=== PATIENT | female | born 1975 | race Caucasian/White ===

== ENCOUNTER 2024-01-05 08:39 | Outpatient (OUT) | payer OTHER, SELFPAY ==
--- NOTE | 2024-01-05 08:43 | MM_ITS ---
Patient Name: JANICE PATTEN MR#: [id number] : 1975 Exam Date: 01/05/2024 Ordering Doctor: YOANA YAN . RADIOLOGY REPORT PROCEDURE: MM TOMOSYNTHESIS SCREENING BI COMPARISON: MG MAMM SCREEN 3D STEVENSON CAD, 12/09/2022. MG MAMM SCREEN 3D STEVENSON CAD, 11/05/2021. MG MAMM SCREEN STEVENSON W CAD, 10/08/2020. MG MAMM SCREEN STEVENSON W CAD, 02/15/2018. INDICATIONS: Screening Calculator Name NCI Breast Cancer Risk Assessment Tool 5 Year Breast Cancer Risk 1.20% Lifetime Breast Cancer Risk 12.80% Personal Breast Cancer No Personal Ovarian Cancer No Treatments None Family Cancers None LOCATION: [facility] BREAST COMPOSITION: The breasts are extremely dense, which lowers the sensitivity of mammography. FINDINGS: DIAGNOSTIC CATEGORY 1--NEGATIVE. RIGHT BREAST: No significant suspicious finding. No significant change has occurred. LEFT BREAST: No significant suspicious finding. No significant change has occurred. RECOMMENDATIONS: ROUTINE MAMMOGRAM AND CLINICAL EVALUATION IN 12 MONTHS. PLEASE NOTE: A NORMAL MAMMOGRAM DOES NOT EXCLUDE THE POSSIBILITY OF BREAST CANCER. A CLINICALLY SUSPICIOUS PALPABLE LUMP SHOULD BE BIOPSIED. Dictated by: Cipriano Toro M.D. on 01/07/2024 at 10:11 Approved by: Cipriano Toro M.D. on 01/07/2024 at 10:27
== END 2024-01-05 08:40 | disposition home or self-care (01) ==
LOC: MAMMO 08:39
PROVIDERS: PCP Nurse Practitioner; Visit Provider Nurse Practitioner
DX: Z12.31 Encounter for screening mammogram for malignant neoplasm of breast (principal)
CPT/HCPCS: 77063; 77067

== ENCOUNTER 2025-02-21 09:26 | Outpatient (OUT) | payer OTHER, SELFPAY ==
--- OUTSIDE RECORDS SUMMARY | 2025-02-21 09:28 | XMS_ITS | Encounter Summary ---
Author Organization [facility] Address [address] [place] [address] Care Team Providers Care Rolls Mill Operator Name Role Phone Floresita Martinez CNP Primary Care Provider + [phone] Angélica Taylor CNP Primary Care Provider [phone] Floresita Martinez CNP Unavailable [phone] Encounter Details Date Type Department Care Team (Late st Contact Info) Description 11/03/2021 Abstract [facility] Endocrinology Physicians [address] [facility] [place] [address] Kenneth Sparrow MD [address] [place] [address] Social History Tobacco Use Types Packs/Day Years Used Date Smoking Tobacco: Every Day Smokeless Tobacco: Never Comments Unknown Sex and Gender Information Value Date Recorded Sex Assigned at Not on file Legal Sex Female 3:32 PM EDT Gender Identity Female 11/03/2021 8:42 AM EDT Sexual Orientation Straight 11/03/2021 8: 42 AM EDT COVID-19 Exposure Response Date Recorded In the last 10 days, have yo u been in contact with someone who was confirmed or suspected to have Coronavirus/COVID-19? No / Unsure 11/03/2021 7:27 AM EDT documented as of this encounter Plan of Treatment Upcoming Encounters Date Type Department Care Team (Late st Contact Info) Description 04/18/2025 11:00 AM EDT Office Visit [facility] Endocrinology Physicians [address] [facility] [place] [address] Floresita Martinez CNP [address] [place] [address] documented as of this encounter Visit Diagnoses Not on filedocumented in this encounter Care Teams Rolls Mill Operator Relationship Specialty Start Date End Date Floresita Martinez CNP [address] [place] [address] PCP - General Endocrinology/Metabolism 06/21/24 Angélica Taylor CNP [address] [place] [address] PCP - General Nurse Practitioner 08/09/24 Floresita Martinez CNP [address] [place] [address] Nurse Practitioner Endocrinology/Metabolism 08/09/24 documented as of this encounter
--- OUTSIDE RECORDS SUMMARY | 2025-02-21 09:28 | XMS_ITS | Clinical Summary ---
Author Organization [facility] Address [address] [facility] [facility] [place] [address] Care Team Providers Care Optomechanical Engineer Name Role Phone Unavailable Primary Care Provider Unavailabl e Social History Tobacco Use Types Packs/Day Years Used Date Smoking Tobacco: Never Assessed Comments Unknown Sex and Gender Information Value Date Recorded Sex Assigned at Not on file Legal Sex Female 8:21 PM EDT Gender Identity Not on file Sexual Orientation Not on file Last Filed Vital Signs Vital Sign Reading Time Taken Comments Blood Pressure 121/70 12/09/2022 12:00 PM EDT Pulse - - Temperature - - Respiratory Rate - - Oxygen Saturation - - Inhaled Oxygen Concentration - - Weight 54.4 kg (120 lb) 12/09/2022 12:00 PM EDT Height 157.5 cm (5' 2 ) 12/09/2022 12:00 PM EDT Body Mass Index 21.95 12/09/2022 12:00 PM EDT Plan of Treatment Not on file
--- OUTSIDE RECORDS SUMMARY | 2025-02-21 09:28 | XMS_ITS | Clinical Summary ---
Author Organization [facility] Address [address] [place], [place] [id number] Care Team Providers Care Drum Operator Name Role Phone Angélica Taylor REHAB LIAISON Primary Care Provider [phone] Floresita Martinez REHAB LIAISON Unavailable [phone] Allergies Active Allergy Reactions Criticality Noted Date Comments Sulfamethoxazole-Trimethoprim Unknown 2021 Cephalexin Unknown 12/18/2015 Epinephrine Palpitations Low 11/03/2021 Penicillins Unknown 12/18/2015 Sulfa (Sulfonamide Antibiotics) Rash Low 10/2021 Sertraline Headache 11/03/2021 Medications blood sugar diagnostic (glucose blood) strips Use to check blood sugar 2 times daily and as needed for low blood sugar. ICD10 code: E10.65 . 100 each 4 Active lancets Misc Use to check blood sugar 2 times daily and as needed for low blood sugar. ICD10 code: E10.65 . 100 each 4 Active pen needle, diabetic 31 gauge x 12/15 NdleIndications:T ype 1 diabetes mellitus without complication (HCC) Use to inject insulin 4 times daily as instructed. . 200 each 4 Active alcohol swabs PadMIndications:T ype 1 diabetes mellitus without complication (HCC) Use to check blood sugar up to 4 times daily and as needed for low blood sugar. ICD10 code: E10.9 . 100 each 4 Active insulin glargine (Lantus Solostar U-100 Insulin) 100 unit/mL (3 mL) InPn Inject 9 units under the skin daily. . 15 mL 3 4 Active Additional Information Patient taking differently: As needed, Inject 9 units under the skin, Reported on 01/10/2025 glucagon 1 mg/0.2 mL AtIn Inject 0.2 mL (1 mg total) under the skin as needed (For severe hypoglycemia) . 0.4 mL 3 4 Active insulin emergency services director cart,aut,G6/7,cnt r (Omnipod 5 G6-G7 Intro Kt,Gen5,) Crtg Inject 1 each under the skin every 3 (three) days . 1 each 4 Active blood-glucose sensor (Dexcom G7 Sensor) DeviIndications:T ype 1 diabetes mellitus with hyperglycemia (HCC) Use as directed every 10 days . 3 each 11 4 Active rosuvastatin (CRESTOR) 5 MG tabletIndications :Dyslipidemia Take 1 (one) tablet (5 mg total) by mouth daily . 90 tablet 3 4 025 Active insulin lispro (AdmeLOG,HumaLOG) 100 unit/mL injection As directed via insulin pump up to 40 units daily . 40 mL 3 5 Active insulin pump cart,auto,BT,G6/7 (Omnipod 5 G6-G7 Pods, Gen 5,) Crtg Inject 1 each under the skin every 3 (three) days . 30 each 3 5 Active Active Problems Problem Noted Date Diagnosed Date Type 1 diabetes mellitus without complication Encounters Date Type Department Care Team Description 01/10/2025 11:00 AM EDT Office Visit [facility] Endocrinology Physicians [address] [place] [address] [place] [address] Floresita Martinez, TAN Type 1 diabetes mellitus with hyperglycemia (HCC) (Primary Dx); Dyslipidemia 01/08/2025 Travel from Last 3 Months Family History Medical History Relation Comments Diabetes Brother Type 2 Heart disease Maternal Aunt Diabetes Maternal Grandfather Diabetes Maternal Grandmother Diabetes Maternal Uncle Heart disease Mother Thyroid disease Mother Relation Status Comments Brother Maternal Aunt Maternal Grandfather Maternal Grandmother Maternal Uncle Mother Social History Tobacco Use Types Packs/Day Years Used Date Smoking Tobacco: Every Day Cigarettes 0.5 20 Smokeless Tobacco: Never Tobacco Cessation:Ready to Q uit: Not Asked; Counseling Given: Not Answered Alcohol Use Standard Drinks/Week Comments Yes 0 (1 standard drink = 0.6 oz pur e alcohol) occasionally [facility] Utilities Answer Date Recorded In the past 12 months has e electric, gas, oil, or water company threatened to shut off services in your home? No 05/17/2024 Humiliation, Afraid, Rape, and Kick questionnair e Answer Date Recorded Within the last year, have y ou been afraid of your partner or ex-partner? No 05/17/2024 Within the last year, have y ou been humiliated or emotionally abused in other ways by your partner or ex-partner? No Within the last year, have y ou been kicked, hit, slapped, or otherwise physically hurt by your partner or ex-partner? No 05/17/2024 Within the last year, have y ou been raped or forced to have any kind of sexual activity by your partner or ex-partner? No 05/17/2024 Social Connection and Isolat ion Panel [NHANES] Answer Date Recorded In a typical week, how many times do you talk on the phone with family, friends, or neighbors? More than three times a week 05/17/2024 How often do you get togethe r with friends or relatives? Once a week 05/17/2024 How often do you attend [facility] or jewish services? Never 05/17/2024 Do you belong to any clubs o r organizations such as episcopal groups, unions, fraternal or athletic groups, or school groups? No 05/17/2024 How often do you attend meet ings of the clubs or organizations you belong to? Never 05/17/2024 Are you , , di vorced, , never , or living with a partner? 05/17/2024 AUDIT-C Answer Date Recorded Q1: How often do you have a drink containing alc ohol? Monthly or less 05/17/2024 Q2: How many drinks containi ng alcohol do you have on a typical day when you are drinking? 3 or 4 05/17/2024 Q3: How often do you have si x or more drinks on one occasion? Never 05/17/2024 Overall Financial Resource Strain (CARDIA) Answe r Date Recorded How hard is it for you to pa y for the very basics like food, housing, medical care, and heating? Somewhat hard 05/17/2024 PHQ-2 Answer Date Recorded Patient Health Questionnaire-2 Score 0 05/17/2024 [facility] of Occupat ional [facility] - Occupational Stress Questionnaire Answer Date Recorded Do you feel stress - tense, restless, nervous, or anxious, or unable to sleep at night because your mind is troubled all the time - these days? To some extent 05/17/2024 Exercise Vital Sign Answer Date Recorde d On average, how many days pe r week do you engage in moderate to strenuous exercise (like a brisk walk)? 0 days 05/17/2024 On average, how many minutes do you engage in exercise at this level? 0 min 05/17/2024 Hunger Vital Sign Answer Date Recorded Within the past 12 months, y ou worried that your food would run out before you got the money to buy more. Never true 05/17/20 24 Within the past 12 months, t he food you bought just didn't last and you didn't have money to get more. Never true 05/17/2024 PRAPARE - Transportation Answer Date Re corded In the past 12 months, has l ack of transportation kept you from medical appointments or from getting medications? No 05/02 In the past 12 months, has l ack of transportation kept you from meetings, work, or from getting things needed for daily living? No 05/17/2024 Housing Stability Vital Sign Answer Luis Armando e Recorded In the last 12 months, was t here a time when you were not able to pay the mortgage or rent on time? No 05/17/2024 In the past 12 months, how m any times have you moved where you were living? 1 05/17/2024 At any time in the past 12 m [facility], were you homeless or living in a [place] (including now)? No 05/17/2024 Education Answer Date Recorded What is the highest level of school you have completed or the highest degree you have received? High school graduate 05/17/2024 Comments Unknown Sex and Gender Information Value Date Recorded Sex Assigned at Not on file Legal Sex Female 3:32 PM EDT Gender Identity Female 11/03/2021 8:42 AM EDT Sexual Orientation Straight 11/03/2021 8: 42 AM EDT Last Filed Vital Signs Vital Sign Reading Time Taken Comments Blood Pressure 117/75 01/10/2025 11:00 AM EDT Pulse 77 01/10/2025 11:00 AM EDT Temperature - - Respiratory Rate 16 06/28/2024 9:49 AM EST Oxygen Saturation 98% 01/26/2024 10:43 AM EDT Inhaled Oxygen Concentration - - Weight 55.5 kg (122 lb 6.4 oz) 01/10/2025 11:00 AM EDT Height 157.5 cm (5' 2 ) 06/21/2024 3:16 PM EST Body Mass Index 22.39 06/21/2024 3:16 PM EST Plan of Treatment Upcoming Encounters Date Type Department Care Team (Late st Contact Info) Description 04/18/2025 11:00 AM EDT Office Visit [facility] Endocrinology Physicians [address] [facility] [place] [id number] Floresita Martinez, REHAB LIAISON [address] [place] [address] Health Maintenance Due Date Last Done Comments CT Colonography 1975 Colonoscopy 1975 Colorectal Cancer Screening/Monitoring 1975 Fecal DNA 1975 Fecal occult blood test (FOBT,FIT) 1975 Flexible sigmoidoscopy 1975 Tetanus: Every 10yrs 1977 Depression Screening/Follow- Up (PHQ-2/9) 1989 HIV Screening 1992 Hepatitis C Screening 1995 Pneumococcal Vaccine: Ped or At-Risk (1 of 2 - PCV) 1996 HPV/Cotest 2007 Mammogram 12/10/2023 12/09/2022, 12/09/2022 Wellness Visit 12/10/2023 12/09/2022 COVID-19 Vaccine (1 - 2023-2 5 season) 2024 A1C 03/29/2025 12/27/2024, 01/0 10/2024, 04/19/2024, Additional history exists Influenza Vaccine (#1) 2025 Diabetic Foot Exam 10/04/2025 10/04/2024, 11/01/2023 Diabetic Eye Exam 12/06/2025 12/06/2024, , 10/05/2022 Cervical Cancer Screening 12/09/2025 Pap Smear 12/09/2025 12/09/2022 Urine (micro)albumin/creatin ine ratio - Diabetes 12/27/2025 12/27/2024, 01/12/2024, 12/16/2022, Additional history exists eGFR Diabetes 12/27/2025 12/27/2024, 01/12/2024, 12/16/2022 Goals Goal Patient Goal Type Associated Problems Recent Progress Patient-Stated? Author DSME Program Goal: I will work on getting 30 min 3 days of physical activity and work up to 5 days a week. Being Active On track( 12:16 PM EST) Yes Floresita Salas RN DSME Program Goal: I will use family and friends to help me manage my diabetes Healthy Coping On track( 12:16 PM EST) Yes Floresita Salas RN DSME Program Goal: I will start reading nutrition labels Healthy Eating On track( 12:16 PM EST) Yes Katharina Chino RD DSME Program Goal: I will follow the plate method to plan balanced meals Healthy Eating On track( 12:16 PM EST) Yes Katharina Chino RD DSME Program Goal: i will continue to check my blood sugars at least four times a day. Monitoring On track( 12:16 PM EST) Yes Floresita Salas RN Procedures Procedure Name Priority Date/Time Associated Diagnosis Comments PA PEER COUNSELOR (MONITOR); EXTERNAL, FOR USE WITH NONDURABLE MEDICAL EQUIPMENT INTERSTITIAL CONTINUOUS GLUCOSE MONITORING SYSTEM (CGM) Routine 01/09/2025 1:14 PM EDT MICROALBUMIN, URINE, RANDOM Routine 12/27/2024 7:29 AM EDT Type 1 diabetes mellitus with hyperglycemia (HCC) HEMOGLOBIN A1C Routine 12/27/2024 7:23 AM EDT Type 1 diabetes mellitus with hyperglycemia (HCC) TSH WITH REFLEX FREE T4 Routine 12/27/2024 7:23 AM EDT Type 1 diabetes mellitus with hyperglycemia (HCC) CHEM 7 Routine 12/27/2024 7:23 AM EDT Type 1 diabetes mellitus with hyperglycemia (HCC) LIPID PANEL Routine 12/27/2024 7:23 AM EDT Type 1 diabetes mellitus with hyperglycemia (HCC) Dyslipidemia HM DIABETES EYE EXAM Routine 12/06/2024 3:21 PM EDT from Last 3 Months Results * PA PEER COUNSELOR (MONITOR); EXTERNAL, FOR USE WITH NONDURABLE MEDICAL EQUIPMENT INTERSTITIAL CONTINUOUS GLUCOSE MONITORING SYSTEM (CGM) (01/09/2025 1:14 PM EDT) Floresita Martinez CNP PA MISCELLANEOUS SERVICES Final Result * Microalbumin/Creatinine Ratio, UR Random (12/27/2024 7:29 AM EDT) Creatinine, Urine Random ([facility]) 101 20 - 275 mg/dL [facility] Microalb, Urine Random ([facility]) 1.3 See Note: mg/dL [facility] Comment: Reference Range: Reference Range Not established Microalbumin/Creat inine Ratio ([facility]) 13 <30 mg/g creat [facility] Comment: The ADA defines abnormalities in albumin excretion as follows: Albuminuria Category Result (mg/g creatinine) Normal to Mildly increased <30 Moderately increased 30-299 Severely increased > OR = 300 The ADA recommends that at least two of three specimens collected within a 3-6 month period be abnormal before considering a patient to be within a diagnostic category. Urine URINE SPECIMEN / Unknown 12/27/2024 7:29 AM EDT 12/27/2024 7:30 AM EDT Narrative [facility] - 12/28/2024 4:17 PM EDT FASTING:YES FASTING: YES Floresita Martinez CNP URINE ORDERABLES Final Res ult [facility] [address] [place] [address], * (ABNORMAL) Chem 7 (12/27/2024 7:23 AM EDT) Glucose ([facility]) 134(H) 65 - 99 mg/dL [facility] Comment: Fasting reference interval For someone without known diabetes, a glucose value >125 mg/dL indicates that they may have diabetes and this should be confirmed with a follow-up test. BUN ([facility]) 24 7 - 25 mg/dL [facility] Creatinine ([facility]) 0.77 0.50 - 0.99 mg/dL [facility] eGFR ([facility]) 96 > OR = 60 mL/min/1. 73m2 [facility] Bun/Creatinine Ratio ([facility]) SEE NOTE: 6 - 22 (calc) [facility] Comment: Not Reported: BUN and Creatinine are within reference range. Sodium ([facility]) 141 135 - 146 mmol/L [facility] Potassium ([facility]) 4.4 3.5 - 5.3 mmol/L [facility] Chloride ([facility]) 107 98 - 110 mmol/L [facility] CO2 ([facility]) 27 20 - 32 mmol/L [facility] Blood BLOOD SPECIMEN / Unknown 12/27/2024 7:23 AM EDT 12/27/2024 7:24 AM EDT Narrative [facility] - 12/27/2024 11:18 PM EDT FASTING:YES FASTING: YES Floresita Martinez [facility] BLOOD ORDERABLES Final Result [facility] [address] [place] [address], * TSH with Reflex Free T4 (12/27/2024 7:23 AM EDT) TSH ([facility]) 1.14 mIU/L [facility] Comment: Reference Range > or = 20 Years 0.40-4.50 Ranges First trimester 0.26-2.66 Second trimester 0.55-2.73 Third trimester 0.43-2.91 Blood BLOOD SPECIMEN / Unknown 12/27/2024 7:23 AM EDT 12/27/2024 7:24 AM EDT Narrative [facility] - 12/28/2024 12:26 AM EDT FASTING:YES FASTING: YES Floresita Martinez [facility] LAB BLOOD ORDERABLES Final Result Performing Organization Address [facility]/ZIP Co de Phone Number [facility] [address] [address], * (ABNORMAL) Hemoglobin A1c (12/27/2024 7:23 AM EDT) Hemoglobin A1C ([facility]) 7.9(H) <5.7 % [facility] Comment: For someone without known diabetes, a hemoglobin A1c value of 6.5% or greater indicates that they may have diabetes and this should be confirmed with a follow-up test. For someone with known diabetes, a value <7% indicates that their diabetes is well controlled and a value greater than or equal to 7% indicates suboptimal control. A1c targets should be individualized based on duration of diabetes, age, comorbid conditions, and other considerations. Currently, no consensus exists regarding use of hemoglobin A1c for diagnosis of diabetes for children. Blood BLOOD SPECIMEN / Unknown 12/27/2024 7:23 AM EDT 12/27/2024 7:24 AM EDT Narrative [facility] - 12/28/2024 2:12 AM EDT FASTING:YES FASTING: YES Floresita Martinez [facility] BLOOD ORDERABLES Final Result Performing Organization Address City/[facility]/ZIP Co de Phone Number [facility] [address] [address], * Lipid Panel (12/27/2024 7:23 AM EDT) Cholesterol ([facility]) 159 <200 mg/dL [facility] HDL ([facility]) 66 > OR = 50 mg/dL [facility] Triglycerides ([facility]) 73 <150 mg/dL [facility] LDL Cholesterol ([facility]) 78 mg/dL (calc) [facility] Comment: Reference range: <100 Desirable range <100 mg/dL for primary prevention; <70 mg/dL for patients with CHD or diabetic patients with > or = 2 CHD risk factors. LDL-C is now calculated using the Juan calculation, which is a validated novel method providing better accuracy than the Friedewald equation in the estimation of LDL-C. Rolando SS et al. PEGGY. 2013;310(19): 3001-8222 (http://education.Mercury Puzzle/faq/VQP333) Chol/HDL Ratio ([facility]) 2.4 <5.0 (calc) [facility] Non HDL Cholesterol ([facility]) 93 <130 mg/dL (calc) [facility] Comment: For patients with diabetes plus 1 major ASCVD risk factor, treating to a non-HDL-C goal of <100 mg/dL (LDL-C of <70 mg/dL) is considered a therapeutic option. Blood BLOOD SPECIMEN / Unknown 12/27/2024 7:23 AM EDT 12/27/2024 7:24 AM EDT Narrative [facility] - 12/27/2024 11:18 PM EDT FASTING:YES FASTING: YES Floresita Martinez [facility] BLOOD ORDERABLES Final Result [facility] [address] [place] [address], [place] * DIABETES EYE EXAM (12/06/2024 3:21 PM EDT) Kenneth Sparrow MD HEALTH MAINTENANCE Final Result from Last 3 Months Insurance PPO Care Teams Drum Operator Relationship Specialty Start Date End Date Angélica Taylor CNP [address] [place] [address] PCP - General Nurse Practitioner 08/09/24 Floresita Martinez CNP [address] [place] [address] Nurse Practitioner Endocrinology/Metabolism 08/09/24
--- OUTSIDE RECORDS SUMMARY | 2025-02-21 09:28 | XMS_ITS | Patient Health Record ---
Author Organization [facility] Address [address] [place] [address] Care Team Providers Care Station Inspector Name Role Phone Dr. Deni Monroe Primary Care Provider Allergies Allergen (clinical drug ingredient) Drug/Non Drug Allergy documented on EMR Reaction Allergy Type Onset Date Status EPINEPHrine Unknown Drug Allergy Activ e Reason For Referral No Information Plan Of Treatment No Information Insurance Providers Payer Name Payer Address Payer Phone Subscriber Number Group Number Insured Name Patient Relationship to Insured Coverage Start Date Coverage End Date z[employer]-termed [address] [place] [address] [id number] JANICE PATTEN Self - patient is the insured 2 zMEDICAID [employer] after [employer] [address] [place] [address] [id number] JANICE PATTEN Self - patient is the insured 2 zDENTAL [employer] E-termed 22 [address] [place] [address] [id number] JANICE PATTEN Self - patient is the insured 2 zDental MEDICAID [employer] after [employer] E-[employer] 22 [address] [place] [address] [id number] JANICE PATTEN Self - patient is the insured 2
--- OUTSIDE RECORDS SUMMARY | 2025-02-21 09:28 | XMS_ITS | Encounter Summary ---
Author Organization [facility] Address [facility] [place] [address] Care Team Providers Care Carrier Driver Name Role Phone Floresita Martinez CNP Primary Care Provider + [phone] Angélica Taylor CNP Primary Care Provider [phone] Floresita Martinez CNP Unavailable [phone] Encounter Details Date Type Department Care Team (Late st Contact Info) Description 11/19/2021 [facility] Only [facility] [address] [place] [phone] Denita Rodriguez MD [address] [facility] [address] [place] [id number] Social History Tobacco Use Types Packs/Day Years [...] Description 04/18/2025 11:00 AM EDT Office Visit [facility] [address] [facility] [place] [phone] Floresita Martinez CNP [address] [facility] [place] [address] documented as of this encounter Visit Diagnoses Not on filedocumented in this encounter Care Teams Carrier Driver Relationship Specialty Start Date End Date Floresita Martinez CNP [address] [place] [address] PCP - General Endocrinology/Metabolism 06/21/24 Angélica Taylor CNP [address] [place] [id number] PCP - General Nurse Practitioner 08/09/24 Floresita Martinez CNP [address] [place] [address] Nurse Practitioner Endocrinology/Metabolism 08/09/24 documented as of this encounter
--- NOTE | 2025-02-21 09:31 | MM_ITS ---
Patient Name: JANICE PATTEN MR#: [id number] : 1975 Exam Date: 02/21/2025 Ordering Doctor: YOANA YAN . RADIOLOGY REPORT PROCEDURE: MM TOMOSYNTHESIS SCREENING BI COMPARISON: MM TOMOSYNTHESIS SCREENING BI, 01/05/2024. MG MAMM SCREEN 3D [facility] CAD, 12/09/2022. MG MAMM SCREEN 3D [facility] CAD, 11/05/2021. MG MAMM SCREEN STEVENSON W CAD, 02/15/2018. INDICATIONS: Screening Calculator Name NCI Breast Cancer Risk Assessment Tool 5 Year Breast Cancer Risk 1.20% Lifetime Breast Cancer Risk 12.70% Personal Breast Cancer No Personal Ovarian Cancer No Treatments None Family Cancers None LOCATION: [facility] BREAST COMPOSITION: The breasts are extremely dense, which lowers the sensitivity of mammography. FINDINGS: DIAGNOSTIC CATEGORY 1--NEGATIVE. RIGHT BREAST: No significant suspicious finding. LEFT BREAST: No significant suspicious finding. RECOMMENDATIONS: ROUTINE MAMMOGRAM AND CLINICAL EVALUATION IN 12 MONTHS. PLEASE NOTE: A NORMAL MAMMOGRAM DOES NOT EXCLUDE THE POSSIBILITY OF BREAST CANCER. A CLINICALLY SUSPICIOUS PALPABLE LUMP SHOULD BE BIOPSIED. Dictated by: Uriah Cannon MD on 02/21/2025 at 13:13 Approved by: Uriah Cannon MD on 02/21/2025 at 13:15
--- OUTSIDE RECORDS SUMMARY | 2025-02-21 09:49 | XMS_ITS | CCD ---
Author Organization [facility] Care Team Providers Care Certified Breastfeeding Educator Name Role Phone Shaan Coffman Primary Care Provider Shaan OLIVARES Primary Care Physician Olivares Shaan CORDERO Primary Care Provider [phone] Olivares GIL, Shaan Primary Care Provider SHAAN OLIVARES Referring Unavailable OLIVARES, SHAAN A Primary Care Unavailable OLIVARES, SHAAN A Referring Unavailable OLIVARES, SHAAN A Primary Care Unavailable OLIVARES, SHAAN A Referring Unavailable OLIVARES, SHAAN A Primary Care Unavailable OLIVARES, SHAAN A Primary Care Unavailable OLIVARES, SHAAN A Referring Unavailable OLIVARES, SHAAN A Referring Unavailable OLIVARES, SHAAN A Primary Care Unavailable OLIVARES, SHAAN A Primary Care Unavailable OLIVARES, SHAAN A Referring Unavailable Olivares Shaan CORDERO Primary Care Provider [phone] MAGAL[address] ., DR GODOY Primary Care Unavailabl e KARASIK ., DR GODOY Consulting Unavailabl e KARASIK ., DR GODOY Attending Unavailabl e KARASIK ., DR GODOY Admitting Unavailabl e KARASIK ., DR GODOY Admitting Unavailabl e KARASIK ., DR GODOY Primary Care Unavailabl e KARASIK ., DR GODOY Consulting Unavailabl e KARASIK ., DR GODOY Attending Unavailabl e WEST, DR MATTHEW Sheppard Consulting Unavailable Olivares Shaan CORDERO Primary Care Provider Yoana Taylor Primary Care Physician Yoana Taylor Attending Unavailable YuriyYoana soto Admitting Unavailable YuriyYoana soto Attending Unavailable YuriyYoana soto Attending Unavailable OLIVARES, SHAAN Primary Care Unavailable MARLENY SPARROWIN TERRANCE NATARAJAN Admitting Unava ilable OLIVARESSHAAN Primary Care Unavailable ADLY, KENNETH ADLY KENNETH Referring Unava ilable ADLY, KENNETH ADLY KENNETH Admitting Unava ilable SHAAN OLIVARES Primary Care Unavailable ADLY, KENNETH ADLY KENNETH Referring Unava ilable ADLY, KENNETH ADLY KENNETH Admitting Unava ilable Yuriy, INTERLACER Yoana L Attending Unavailable Yuriy, INTERLACER Yoana L Admitting Unavailable Yuriy, INTERLACER Yoana L Attending Unavailable Yuriy, INTERLACER Yoana L Attending Unavailable Unavailable Primary Care Provider Unavailabl e Floresita Bob CNP Primary Care Provider FLORESITA BOB Primary Care Unavailable FLORESITA BOB Referring Unavailable FLORESITA BOB Admitting Unavailable FLORESITA SALAS Attending Unavailable FLORESITA BOB Primary Care Unavailable PAPO [place]ILLS Attending Unavailable FLORESITA BOB Referring Unavailable FLORESITA BOB Admitting Unavailable SHAAN OLIVARES [facility] Care Unavailable FLORESITA BOB Referring Unavailable FLORESITA BOB Admitting Unavailable FLORESITA SALAS Attending Unavailable [place] Attending Unavailable FLORESITA BOB Primary Care Unavailable FLORESITA BOB Referring Unavailable FLORESITA BOB Admitting Unavailable SHAAN OLIVARES [facility] Care Unavailable ADLY, KENNETH ADLY KENNETH Attending Unava ilable ADLY, KENNETH ADLY KENNETH Referring Unava ilable Yuriy Yoana MADDOX Primary Care Provider Floresita Bob CNP Unavailable [phone] Brenna Love Attending Unavailable ADLY, KENNETH ADLY KENNETH Attending Unava ilable YURIYYOANA SOTO Primary Care Unavailable ADLY, KENNETH ADLY KENNETH Attending Unava ilable FLORESITA BOB Primary Care Unavailable FLORESITA BOB Attending Unavailable YURIYYOANA SOTO Primary Care Unavailable FLORESITA BOB Attending Unavailable YURIYYOANA SOTO Primary Care Unavailable FLORESITA BOB Attending Unavailable YURIYYOANA SOTO Primary Care Unavailable FLORESITA BOB Attending Unavailable SHAAN OLIVARES Primary Care Unavailable ADLY, KENNETH ADLY KENNETH Attending Unava ilable SHAAN OLIVARES Primary Care Unavailable FLORESITA BOB Attending Unavailable YURIY, YOANA RINA Primary Care Unavailable Allergies Allergy Classification Reported Allergen(s) Allergy Type Date of Onset Reaction(s) Facility Adrenergic Agonists (2 sources) EPINEPHrine; Translations: [epinephrine] Drug Allergy 11-04-19 Palpitations [facility] Cephalosporins (antibiotic) (1 source) Cephalexin Drug Allergy 12-18-19 16 Unknown [facility] Penicillins (antibiotic) (2 sources) Penicillins; Translations: [penicillins] Drug Allergy 12-18-19 16 Unknown [facility] Serotonin Reuptake Inhibitors (SSRIs) (2 sources) Sertraline; Translations: [sertraline] Drug Allergy 11-04-19 Headache (finding), Headache [facility] Sulfamethoxazole / Trimethoprim (2 sources) Sulfamethoxazole / Trimethoprim; Translations: [sulfamethoxazole-t rimethoprim] Drug Allergy 11-04-19 Muscle pain (finding), Unknown [facility] Sulfonamides (antibiotic) (2 sources) Sulfonamides (Antibiotic); Translations: [sulfa drugs] Drug Allergy 11-04-19 Rash [facility] (20 sources) EPINEPHrine; Translations: [epinephrine] Drug Allergy 11-04-19 Palpitations [facility] (15 sources) Penicillins; Translations: [penicillins] Propensity to adverse reactions to drug 12-18-19 16 Unknown [facility] (20 sources) Sertraline; Translations: [sertraline] Drug Allergy 11-04-19 Headache, Headache (finding) [facility] (20 sources) Sulfamethoxazole / Trimethoprim; Translations: [sulfamethoxazole-t rimethoprim] Drug Allergy 11-04-19 Unknown, Muscle pain (finding) [facility] (20 sources) Sulfonamides (Antibiotic); Translations: [SULFA (SULFONAMIDE ANTIBIOTICS)] Propensity to adverse reactions to drug 11-04-19 Rash [facility] (5 sources) Sulfonamides (Antibiotic); Translations: [sulfa drugs] Drug allergy rash [facility] Ralph Work Phone: (20 sources) Penicillins Propensity to adverse reactions to drug 12-18-19 16 Unknown [facility] (1 source) Cephalexin Drug Allergy 05-18-20 16 [facility] (1 source) EPINEPHrine Drug Allergy 12-18-19 16 [facility] (1 source) Penicillins Drug allergy (disorder) 12-18-19 16 [facility] (1 source) Sulfonamides (Antibiotic) Drug allergy (disorder) 12-18-19 16 [facility] (20 sources) Cephalexin; Translations: [CEPHALEXIN] Drug Allergy 12-18-19 16 Unknown [facility] (3 sources) Sertraline; Translations: [Zoloft] Drug Allergy [facility] (3 sources) Sulfamethoxazole / Trimethoprim; Translations: [Bactrim] Drug Allergy [facility] (1 source) Penicillins Propensity to adverse reactions to drug 12-18-19 16 Unknown [facility] Medications Current Medications Medication Drug Class(es) Dates Sig (Normalized) Sig (Original) blood-glucose meter,continuous (Dexcom G6 Air Twist Operator) Misc (6 sources) Start: 12-22-2021 blood-glucose meter,continuous (Dexcom G6 Air Twist Operator) Misc Use as instructed to check blood sugar. . 1 each 0 12/22/2021 Active Start: 12-10-2021 blood-glucose meter,continuous (Dexcom G6 Air Twist Operator) Misc To check blood sugar as instructed. . 1 each 0 12/10/2021 Active blood-glucose sensor (Dexcom G7 Sensor) Nabila (12 sources) Start: 07-21-2024 blood-glucose sensor (Dexcom G7 Sensor) Nabila Indications: Type 1 diabetes mellitus with hyperglycemia (HCC) Use as directed every 10 days . 3 each 07/21/2024 Active Start: 06-16-2024 End: 06-20-2024 blood-glucose sensor (Dexcom G7 Sensor) Nabila Indications: Type 1 diabetes mellitus with hyperglycemia (HCC) Check bg prior to meals and bedtime. Change sensor every 10 days. . 3 each 06/16/2024 06/20/2024 Discontinued Start: 06-16-2024 blood-glucose sensor (Dexcom G7 Sensor) Nabila Indications: Type 1 diabetes mellitus with hyperglycemia (HCC) Check bg prior to meals and bedtime. Change sensor every 10 days. . 3 each 06/16/2024 Active Start: 06-14-2024 End: 06-16-2024 blood-glucose sensor (Dexcom G7 Sensor) Nabila Indications: Type 1 diabetes mellitus with hyperglycemia (HCC) Check bg prior to meals and bedtime . 3 each 06/14/2024 06/16/2024 Discontinued (Reorder (Suppress CancelRx Message to Pharmacy)) blood-glucose sensor (FreeStyle Alexander 3 Sensor) Nabila (4 sources) Start: 01-26-2024 blood-glucose sensor (FreeStyle Alexander 3 Sensor) Nabila Indications: Type 1 diabetes mellitus with hyperglycemia (HCC) Change every 14 days to check blood sugar as instructed. . 2 each 01/26/2024 Active 0.2 ml glucagon 5 mg/ml auto-injector (14 sources) Antihypoglycemic Agent Start: 05-10-2024 glucagon 1 mg/0.2 mL AtIn Inject 0.2 mL (1 mg total) under the skin as needed (For severe hypoglycemia) . 0.4 mL 3 05/10/2024 Active 3 ml insulin glargine 100 unt/ml pen injector (20 sources) Insulin Analog Start: 12-10-2021 End: 05-10-2024 inject 9 [IU] by subcutaneous injection once daily insulin glargine (Lantus Solostar U-100 Insulin) 100 unit/mL (3 mL) InPn Inject 9 units under the skin daily. . 15 mL 3 05/10/2024 Active Start: 10-08-2021 End: 10-08-2021 inject 7 [IU] by subcutaneous injection at bedtime insulin glargine 100 units/mL subcutaneous solution 7 unit(s), SubCutaneous, Bedtime, # 12 mL, Refills(s) 0, Pharmacy: [facility] [address], 157, cm, 10/07/21 13:36:00 EST, Height/Length Dosing, 54, kg, 10/07/21 13:35:00 EST, Weight Dosing Start Date: 10/08/21 Stop Date: 10/08/21 Status: Ordered insulin glargine (LANTUS) 100 UNIT/ML injection vial Inject 9 Units into the skin nightly 0 Active End: 12-10-2021 inject 7 [IU] by subcutaneous injection once daily insulin glargine (LANTUS) 100 unit/mL injection Inject 7 Units under the skin nightly . 0 12/10/2021 Discontinued insulin glargine (LANTUS) 100 UNIT/ML injection vial Inject 7 Units into the skin nightly 0 Active insulin lispro 100 unt/ml injectable solution (20 sources) Insulin Analog Start: 09-06-2024 insulin lispro (AdmeLOG,HumaLOG) 100 unit/mL injection As directed via insulin pump up to 40 units daily . 40 mL 3 09/06/2024 Active Start: 08-09-2024 End: 09-06-2024 insulin lispro (AdmeLOG,Angela LOG) 100 unit/mL injection As directed via insulin pump up to 35 units daily . 20 mL 12 08/09/2024 09/06/2024 Discontinued Start: 12-24-2022 End: 09-06-2024 inject 1 dose by subcutaneous injection three times daily before mealtime insulin lispro (HumaLOG KwikPen Insulin) 100 unit/mL InPn Indications: Type 1 diabetes mellitus without complication (HCC) Inject under the skin 3 times daily before meals as instructed. Maximum daily dose: 30 units. . 15 mL 11 03/08/2024 09/06/2024 Discontinued Start: 12-10-2021 inject 4 [IU] by sub cutaneous injection three times daily before mealtime insulin lispro (HumaLOG KwikPen Insulin) 100 unit/mL InPn Inject 4 units 3 times daily before meals, under the skin, plus correction as instructed. Maximum daily dose: 30 units. . 15 mL 11 12/10/2021 Active Start: 10-08-2021 insulin lispro 100 units/mL injectable solution See Instructions, Take 2 units of lispro if BS between 151-200 Take 4 units of lispro if BS between 201-250 Take 6 units of lispro if BS between 251-300 Take 8 units of lispro if BS between 301-350 Take 10 units of lispro if BS between 351-400 Take 14 units of lispro if BS between >400, # 15 mL, Refills(s) 0, Pharmacy: [facility] [address], 157, cm, 10/07/21 13:36:00 EST, Height/Length Dosing, 54, kg, 10/07/21 13:35:00 EST, Weight Dosing Start Date: 10/08/21 Status: Ordered End: 12-10-2021 insulin lispro (HUMALOG) 100 UNIT/ML injection vial Inject 1 Units into the skin 3 times daily (before meals) Sliding scale- Take 1 units if BS is between 150-200 Take 2 Units if BS is between 201-250 Take 3 Units if BS is between 251-300 Take 4 Units if BS is between 301-350 Take 5 Units if BS is between 351-400 Take 6 Units if BS is over 400 0 Active insulin assembler insulator cart,aut,G6/7,cn tr (Omnipod 5 G6-G7 Intro Kt,Gen5,) Crtg (9 sources) Start: 07-21-2024 insulin assembler insulator ca rt,aut,G6/7,cntr (Omnipod 5 G6-G7 Intro Kt,Gen5,) Crtg Inject 1 each under the skin every 3 (three) days . 1 each 07/21/2024 Active insulin pump cart,auto,BT,G6 /7 (Omnipod 5 G6-G7 Pods, Gen 5,) Crtg (11 sources) Start: 09-06-2024 insulin pump c art,auto,BT,G6/7 (Omnipod 5 G6-G7 Pods, Gen 5,) Crtg Inject 1 each under the skin every 3 (three) days . 30 each 3 09/06/2024 Active Start: 07-21-2024 End: 09-06-2024 insulin pump cart,auto,BT,G6 /7 (Omnipod 5 G6-G7 Pods, Gen 5,) Crtg Inject 1 each under the skin every 3 (three) days . 10 each 11 07/21/2024 09/06/2024 Discontinued Start: 07-21-2024 insulin pump c art,auto,BT,G6/7 (Omnipod 5 G6-G7 Pods, Gen 5,) Crtg Inject 1 each under the skin every 3 (three) days . 10 each 11 07/21/2024 Active isopropyl alcohol 0.7 ml/ml medicated pad (20 sources) Start: 12-24-2022 End: 02-09-2024 alcohol swabs PadM Indicatio ns: Type 1 diabetes mellitus without complication (HCC) Use to check blood sugar up to 4 times daily and as needed for low blood sugar. ICD10 code: E10.9 . 100 each 11 02/09/2024 Active Start: 12-10-2021 alcohol swabs PadM Use to check blood sugar 4 times daily and as needed for low blood sugar. ICD10 code: E10.9 . 200 each 12/10/2021 Active 24 hr nicotine 0.292 mg/hr transdermal system (1 source) Cholinergic Nicotinic Agonist Start: 04-26-2024 nicotine 7 mg/24 hr Transderm ER Film 1 patch(es), Topical, Daily, 30 EA, Refill(s) 1, [facility], 158.5, cm, 04/26/24 8:26:00 EDT, Height/Length Dosing, 53.2, kg, 04/26/24 8:26:00 EDT, Weight Dosing Start Date: 04/26/24 Status: Ordered rosuvastatin calcium 5 mg oral tablet (20 sources) HMG-CoA Reductase Inhibitor Start: 12-24-2022 End: 07-25-2025 take 1 tablet by mouth once daily rosuvastatin (CRESTOR) 5 MG tablet Indications: Dyslipidemia Take 1 (one) tablet (5 mg total) by mouth daily . 90 tablet 3 07/25/2024 07/25/2025 Active Start: 12-10-2021 End: 12-10-2022 take 1 tablet by mouth once daily rosuvastatin (CRESTOR) 5 MG tablet Take 1 (one) tablet (5 mg total) by mouth daily . 30 tablet 12/10/2021 12/10/2022 Active Completed/Discontinued Medications Medication Drug Class(es) Dates Sig (Normalized) Sig (Original) blood-glucose sensor (Dexcom G6 Sensor) Nabila (9 sources) Start: 12-23-2021 End: 01-19-2022 blood-glucose sensor (Dexcom G6 Sensor) Nabila Indications: Type 1 diabetes mellitus without complication (HCC) Use every 10 days to check blood sugar as instructed. DX code E10.9 . 3 each 12/23/2021 01/19/2022 Discontinued (Formulary change) Start: 12-23-2021 End: 01-19-2022 blood-glucose sensor (Dexcom G6 Sensor) Nabila Use every 10 days to check blood sugar as instructed DG code E10.9 . 3 each 12/23/2021 01/19/2022 Discontinued (Formulary change) Start: 12-23-2021 End: 12-23-2021 blood-glucose sensor (Dexcom G6 Sensor) Nabila Indications: Type 1 diabetes mellitus without complication (HCC) Use every 10 days to check blood sugar as instructed . 3 each 12/23/2021 12/23/2021 Discontinued (Reorder) Start: 12-23-2021 End: 12-23-2021 blood-glucose sensor (Dexcom G6 Sensor) Nabila Use every 10 days to check blood sugar as instructed DG code E10.9 . 3 each 12/23/2021 12/23/2021 Discontinued (Reorder) Start: 12-22-2021 End: 12-23-2021 blood-glucose sensor (Dexcom G6 Sensor) Nabila Use every 10 days to check blood sugar as instructed DG code E10.9 . 3 each 12/22/2021 12/23/2021 Discontinued (Reorder) Start: 12-22-2021 blood-glucose sensor (Dexcom G6 Sensor) Nabila Use every 10 days to check blood sugar as instructed DG code E10.9 . 3 each 12/22/2021 Active Start: 12-22-2021 End: 12-22-2021 blood-glucose sensor (Dexcom G6 Sensor) Nabila Use every 10 days to check blood sugar as instructed . 3 each 12/22/2021 12/22/2021 Discontinued (Reorder) Start: 12-10-2021 blood-glucose sensor (Dexcom G6 Sensor) Nabila To check blood sugar as instructed. . 3 each 12/10/2021 Active blood-glucose sensor (FreeSt yle Alexander 3 Plus Sensor) Nabila (4 sources) Start: 06-20-2024 End: 07-21-2024 blood-glucose sensor (FreeSt yle Alexander 3 Plus Sensor) Nabila Indications: Type 1 diabetes mellitus with hyperglycemia (HCC) Use as directed to check blood glucose . 6 each 06/20/2024 07/21/2024 Discontinued Start: 06-20-2024 blood-glucose sensor (FreeStyle Alexander 3 Plus Sensor) Nabila Indications: Type 1 diabetes mellitus with hyperglycemia (HCC) Use as directed to check blood glucose . 6 each 06/20/2024 Active blood-glucose transmitter (Dexcom G6 Transmitter) Nabila (6 sources) Start: 12-22-2021 End: 01-19-2022 blood-glucose transmitter (Dexcom G6 Transmitter) Nabila Use every 3 months as instructed to check blood sugar. . 1 each 3 12/22/2021 01/19/2022 Discontinued (Formulary change) Start: 12-22-2021 blood-glucose transmitter (Dexcom G6 Transmitter) Nabila Use every 3 months as instructed to check blood sugar. . 1 each 3 12/22/2021 Active Start: 12-10-2021 blood-glucose transmitter (Dexcom G6 Transmitter) Nabila To check blood sugar as instructed. . 1 each 3 12/10/2021 Active flash glucose scanning reade r (FreeStyle Alexander 2 [place]) Misc (19 sources) Start: 01-19-2022 End: 05-10-2024 flash glucose scanning reade r (FreeStyle Alexander 2 [place]) Misc Use as directed for glucose monitoring Dg code E10.9 . 1 each 01/19/2022 05/10/2024 Discontinued Start: 01-19-2022 flash glucose scanning reader (FreeStyle Alexander 2 [place]) Misc Use as directed for glucose monitoring Dg code E10.9 . 1 each 01/19/2022 Active Start: 01-19-2022 flash glucose scanning reader (FreeStyle Alexander 2 [place]) Misc Use as directed for glucose monitoring Dg code E10.9 . 1 each 0 01/19/2022 Active Start: 12-25-2021 End: 01-19-2022 flash glucose scanning reade r (FreeStyle Alexander 2 [place]) Misc Use as directed for glucose monitoring . 1 each 0 12/25/2021 01/19/2022 Discontinued (Reorder) Start: 12-15-2021 End: 12-22-2021 flash glucose scanning reade r (FreeStyle Alexander 2 [place]) Misc Use as directed for glucose monitoring . 1 each 0 12/15/2021 12/22/2021 Discontinued (Formulary change) flash glucose sensor (FreeSt yle Alexander 2 Sensor) Kit (18 sources) Start: 11-13-2023 End: 01-26-2024 flash glucose sensor (FreeSt yle Alexander 2 Sensor) Kit Use as directed every 14 days Dg code E10.65 . 2 kit 11 11/13/2023 01/26/2024 Discontinued Start: 11-13-2023 flash glucose sensor (FreeStyle Alexander 2 Sensor) Kit Use as directed every 14 days Dg code E10.65 . 2 kit 11 11/13/2023 Active Start: 12-29-2022 End: 11-12-2023 flash glucose sensor (FreeSt yle Alexander 2 Sensor) Kit Use as directed every 14 days Dg code E10.9 . 2 kit 11 12/29/2022 11/12/2023 Discontinued (Reorder (Suppress CancelRx Message to Pharmacy)) Start: 12-29-2022 flash glucose sensor (FreeStyle Alexander 2 Sensor) Kit Use as directed every 14 days Dg code E10.9 . 2 kit 11 12/29/2022 Active Start: 01-19-2022 End: 12-29-2022 flash glucose sensor (FreeSt yle Alexander 2 Sensor) Kit Use as directed every 14 days Dg code E10.9 . 2 kit 11 01/19/2022 12/29/2022 Discontinued (Reorder (Suppress CancelRx Message to Pharmacy)) Start: 01-19-2022 flash glucose sensor (FreeStyle Alexander 2 Sensor) Kit Use as directed every 14 days Dg code E10.9 . 2 kit 11 01/19/2022 Active Start: 12-25-2021 End: 01-19-2022 flash glucose sensor (FreeSt yle Alexander 2 Sensor) Kit Use as directed every 14 days . 2 kit 11 12/25/2021 01/19/2022 Discontinued (Reorder) Start: 12-15-2021 End: 12-22-2021 flash glucose sensor (FreeSt yle Alexander 2 Sensor) Kit 1 kit by Miscellaneous route every 14 (fourteen) days Use as directed to apply new sensor . 2 kit 11 12/15/2021 12/22/2021 Discontinued (Formulary change) fluconazole 150 mg oral tablet (1 source) Azole Antifungal Start: 04-26-2024 take 4 tablets by mouth once Diflucan 150 mg Tab 150 mg = 1 tab(s), Oral, Once, take 1 tab on day one and 1 tab on day four, # 2 tab(s), Refills(s) 1, Pharmacy: [facility] [address], 158.5, cm, 04/26/24 8:26:00 EDT, Height/Length Dosing, 53.2, kg, 04/26/24 8:26:00 EDT, Weight Dosing Start Date: 04/26/24 Status: Ordered insulin glargine 100 units/mL subcutaneous solution (2 sources) Start: 10-08-2021 End: 10-08-2021 inject 7 [IU] by subcutaneous injection at bedtime insulin glargine 100 units/mL subcutaneous solution 7 unit(s), SubCutaneous, Bedtime, # 12 mL, Refills(s) 0, Pharmacy: [facility] [address], 157, cm, 10/07/21 13:36:00 EST, Height/Length Dosing, 54, kg, 10/07/21 13:35:00 EST, Weight Dosing Start Date: 10/08/21 Stop Date: 10/08/21 Status: Ordered insulin lispro 100 units/mL injectable solution (1 source) Start: 10-08-2021 insulin lispro 100 units/mL injectable solution See Instructions, Take 2 units of lispro if BS between 151-200 Take 4 units of lispro if BS between 201-250 Take 6 units of lispro if BS between 251-300 Take 8 units of lispro if BS between 301-350 Take 10 units of lispro if BS between 351-400 Ta... Start Date: 10/08/21 Status: Ordered sulfamethoxazole 800 mg / trimethoprim 160 mg oral tablet (2 sources) Dihydrofolate Reductase Inhibitor Antibacterial, Sulfonamide Antimicrobial Start: 02-18-2015 End: 10-29-2021 take 1 tablet by mouth twice daily sulfamethoxazole -trimethoprim (BACTRIM DS) 800-160 MG TABS Take 1 tablet by mouth 2 times daily 20 tablet 0 02/18/2015 10/29/2021 Discontinued (Therapy completed) Problems Active Problems Problem Classification Problem Date Documented Date Episodic/Chronic Diabetes mellitus with complications (20 sources) Hyperglycemia due to type 1 diabetes mellitus; Translations: [Type 1 diabetes mellitus with hyperglycemia] Onset: 04-19-2024 09-01-2023 Chronic Diabetes mellitus without complication (20 sources) Type 1 diabetes mellitus without complication; Translations: [Type 1 diabetes mellitus without complications] Onset: 11-12-2021 Chronic Disorders of lipid metabolism (10 sources) Dyslipidemia; Translations: [Hyperlipidemia, unspecified] Onset: 10-04-2024 01-26-2024 Chronic Immunizations and screening for infectious disease (1 source) Encounter for screening for human papillomavirus (HPV); Translations: [ENC SCREENING HUMAN PAPILLOMAVIRUS] Onset: 12-10-2022 Episodic Mycoses (1 source) Candidiasis of vagina 04-26-2024 Episodic Other female genital disorders (1 source) Cervical atypism 04-26-2024 Episodic Other nutritional; endocrine; and metabolic disorders (3 sources) Body mass index 25-29 - overweight 02-14-2019 Episodic Other screening for suspected conditions (not mental disorders or infectious disease) (5 sources) Encounter for screening for malignant neoplasm of cervix; Translations: [Encounter for screening mammogram for malignant neoplasm of breast] Onset: 12-09-2022 Episodic Residual codes; unclassified (1 source) Body mass index 20-24 - normal; Translations: [Body mass index (BMI) 21.0-21.9, adult] Onset: 04-26-2024 Episodic Sexually transmitted infections (not HIV or hepatitis) (1 source) Low risk human papillomavirus deoxyribonucleic acid test positive in specimen from vagina 04-26-2024 Episodic Substance-related disorders (3 sources) Smoker 10-07-2021 Chronic Comment on above: Added secondary to d ocumentation in Social History. Unclassified (3 sources) Patient encounter status 01-05-2024 Unclassified (2 sources) Body mass index 20-24 - normal 02-02-2024 Past or Other Problems Problem Classification Problem Date Documented Da te Episodic/Chronic Mood disorders (5 sources) Mood disorders Onset: 05-17-2024 05-17-2024 Results Test Name Value Interpretation Reference Range Facility ALBUMIN, RANDOM URINE W/CREA TININEon 12-28-2024 ALBUMIN, URINE 1.3 mg/dL Normal See Note: [facility] Comment on above: Order Comment: FASTI NG:YES FASTING: YES Result Comment: Refe rence Range: Reference Range Not established Performed By: #### [id number] #### [facility] [address], [address] [place] [id number] Package Handler: Bill Polanco MD ALBUMIN/CREATININE RATIO, RANDOM URINE 13 mg/g creat Normal <30 [facility] Comment on above: Order Comment: FASTI NG:YES FASTING: YES Result Comment: The ADA defines abnormalities in albumin excretion as follows: Albuminuria Category Result (mg/g creatinine) Normal to Mildly increased <30 Moderately increased 30-299 Severely increased > OR = 300 The ADA recommends that at least two of three specimens collected within a 3-6 month period be abnormal before considering a patient to be within a diagnostic category. Performed By: #### 6 517 #### [facility] [place] [address] Package Handler: Bill Polanco MD Creatinine (U) [Mass/Vol] 101 mg/dL Normal 20-275 [facility] Comment on above: Order Comment: FASTI NG:YES FASTING: YES Performed By: #### 6 517 #### [facility] [place] [address] Package Handler: Bill Polanco MD BASIC METABOLIC PANEL W/O CA on 12-28-2024 BUN/CREATININE RATIO SEE NOTE: Normal - [facility] Comment on above: Result Comment: Not Reported: BUN and Creatinine are within reference range. Performed By: #### 3 4388, 91660, 24972, 496 #### [facility] [place] [address] Package Handler: Bill Polanco MD Chloride [Moles/Vol] 107 mmol/L Normal 98-110 [facility] Comment on above: Performed By: #### 3 4388, 69524, 88378, 496 #### [facility] [place] [address] Package Handler: Bill Polanco MD CO2 [Moles/Vol] 27 mmol/L Normal 20-32 [facility] Comment on above: Performed By: #### 3 4388, 89826, 23817, 496 #### [facility] [place] [address] Package Handler: Bill Polanco MD Creatinine [Mass/Vol] 0.77 mg/dL Normal 0.50-0.99 [facility] Comment on above: Performed By: #### 3 4388, 45914, 86554, 496 #### [facility] [place] [address] Package Handler: Bill Polanco MD GFR/1.73 sq M.predicted among non-blacks MDRD (S/P/Bld) [Vol rate/Area] 96 mL/min/{1.73_m2} Normal > OR = 60 [facility] Comment on above: Performed By: #### 3 4388, 96652, 01044, 496 #### [facility] [place] [address] Package Handler: Bill Polanco MD Glucose [Mass/Vol] 134 mg/dL High 65-99 [facility] Comment on above: Result Comment: Fasting reference interval For someone without known diabetes, a glucose value >125 mg/dL indicates that they may have diabetes and this should be confirmed with a follow-up test. Performed By: #### 3 4388, 84233, 45529, 496 #### [facility] [place] [address] Package Handler: Bill Polanco MD Potassium [Moles/Vol] 4.4 mmol/L Normal 3.5-5.3 [facility] Comment on above: Performed By: #### 3 4388, 06405, 39712, 496 #### [facility] [place] [address] Package Handler: Bill Polanco MD Sodium [Moles/Vol] 141 mmol/L Normal 135-146 [facility] Comment on above: Performed By: #### 3 4388, 93766, 05150, 496 #### [facility] [place] [address] Package Handler: Bill Polanco MD Urea nitrogen [Mass/Vol] 24 mg/dL Normal 7-25 [facility] Comment on above: Performed By: #### 3 4388, 78728, 84371, 496 #### [facility] [place] [address] Package Handler: Bill Polanco MD HEMOGLOBIN A1con 12-28-2024 HEMOGLOBIN A1c Normal [facility] Comment on above: Performed By: #### 3 4388, 30322, 77002, 496 #### [facility] [address] [place] [address] Package Handler: Bill Polanco MD LIPID PANEL WITH REFLEX TO D DILIP LDLon 12-28-2024 Cholesterol [Mass/Vol] 159 mg/dL Normal <200 [facility] Comment on above: Order Comment: FASTI NG:YES FASTING: YES Performed By: #### 3 4388, 97663, 24782, 496 #### [facility] [address], [address] [place] [address] Package Handler: Bill Polanco MD Cholesterol in HDL [Mass/Vol] 66 mg/dL Normal > OR = 50 [facility] Comment on above: Order Comment: FASTI NG:YES FASTING: YES Performed By: #### 3 4388, 01851, 76654, 496 #### [facility] [address], [address] [place] [address] Package Handler: Bill Polanco MD Cholesterol in LDL [Mass/Vol] 78 mg/dL Normal [facility] Comment on above: Order Comment: FASTI NG:YES FASTING: YES Result Comment: Refe rence range: <100 Desirable range <100 mg/dL for primary prevention; <70 mg/dL for patients with CHD or diabetic patients with > or = 2 CHD risk factors. LDL-C is now calculated using the Rolando-Kishore calculation, which is a validated novel method providing better accuracy than the Friedewald equation in the estimation of LDL-C. Rolando RAMIREZ et al. PEGGY. 2013;310(19): 8331-0371 (http://education.[employer]X-1/faq/CTS807) Performed By: #### 3 4388, 96150, 45406, 496 #### [facility] [address], [address] [place] [address] Package Handler: Bill Polanco MD Cholesterol.total/C holesterol in HDL [Mass ratio] 2.4 {ratio} Normal <5.0 [facility] Comment on above: Order Comment: FASTI NG:YES FASTING: YES Performed By: #### 3 4388, 12639, 41251, 496 #### [facility] [place] [address] [place] [address] Package Handler: Bill Polanco MD NON HDL CHOLESTEROL 93 mg/dL (calc) Normal <130 [facility] Comment on above: Order Comment: FASTI NG:YES FASTING: YES Result Comment: For patients with diabetes plus 1 major ASCVD risk factor, treating to a non-HDL-C goal of <100 mg/dL (LDL-C of <70 mg/dL) is considered a therapeutic option. Performed By: #### 3 4388, 31556, 91450, 496 #### [facility] [address], [address] [place] [address] Package Handler: Bill Polanco MD Triglyceride [Mass/Vol] 73 mg/dL Normal <150 [facility] Comment on above: Order Comment: FASTI NG:YES FASTING: YES Performed By: #### 3 4388, 25837, 40457, 496 #### [facility] [place] [address] Package Handler: Bill Polanco MD TSH W/REFLEX TO FT4on 2024 TSH W/REFLEX TO FT4 1.14 mIU/L Normal [facility] Comment on above: Result Comment: Refe rence Range > or = 20 Years 0.40-4.50 Ranges First trimester 0.26-2.66 Second trimester 0.55-2.73 Third trimester 0.43-2.91 Performed By: #### 3 4388, 59144, 56732, 496 #### [facility] [place] [address] Package Handler: Bill Polanco MD Ambulatory Visit Summaryon 0 - Ambulatory Visit Summary Ambulatory Visit Summary JANICE PAINTING :1975 Visit Date:12/04/2024 Ambulatory Visit Instructions Your Diagnosis Acute cough Sinus congestion BMI 22.0-22.9, adult Your Care Team Attending Physician - Brenna Ventura Primary Care Physician - Yoana Roberts This Is Your Medications List Misc Prescription (Unifine Pentips 31 ángel x1/4 in needle) Misc Prescription (Unifine Pentips 31 gauge x 1/4 needle) [facility] Prescription (glucometer, lancets, alcohol swab, insulin pen and needles) albuterol (Albuterol (Eqv-Ventolin HFA) 90 mcg/inh inhalation aerosol) azithromycin (azithromycin 250 mg Tab) benzonatate (benzonatate 200 mg oral capsule) fluconazole (Diflucan 150 mg Tab) insulin glargine (insulin glargine 100 units/mL subcutaneous solution) insulin lispro (insulin lispro 100 units/mL injectable solution) nicotine (nicotine 7 mg/24 hr Transderm ER Film) rosuvastatin (rosuvastatin 5 mg Tab) Procedures Performed Cryo, pelvic laparoscopy (2004), TL, Tonsillectomy, Tonsillectomy. Discharge Vitals Temperature (Temporal Artery) 36.8 ???C Heart Rate (Peripheral) 78 Respiratory Rate 18 Blood Pressure 126/72 Height 158.5 cm Height 62 in Weight 56 kg Weight 123.459 lb BMI 22.29 Medications What How Much When Why Instructions New albuterol (Albuterol (Eqv-Ventolin HFA) 90 mcg/ inh inhalation aerosol) 2 Inhalation Inhalation Every 4 hours Refills: [address] New azithromycin (azithromycin 250 mg Tab) 1 Packets By Mouth As Directed Duration: 5 Days as directed on package labeling Pickup at [facility] [address] New benzonatate (benzonatate 200 mg oral capsule) 1 Capsules By Mouth 3 times a day Duration: 10 Days Pickup at [facility] [address] Unchanged fluconazole (Diflucan 150 mg Tab) 1 Tablets By Mouth Once Atypical squamous cell of undetermined significance of cervix Vaginal low risk human papillomavirus (HPV) DNA test positive Encounter for smoking cessation counseling take 1 tab on day one and 1 tab on day [address] [facility] [address] Unchanged insulin glargine (insulin glargine 100 units/ mL subcutaneous solution) 7 Units Subcutaneous At bedtime Unchanged insulin lispro (insulin lispro 100 units/ mL injectable solution) See instructions Take 2 units of lispro if BS between 151-200 Take 4 units of lispro if BS between 201-250 Take 6 units of lispro if BS between 251-300 Take 8 units of lispro if BS between 301-350 Take 10 units of lispro if BS between 351-400 Take 14 units of lispro if BS between >400 Unchanged Misc Prescription (glucometer, lancets, alcohol swab, insulin pen and needles) 0 Unchanged Misc Prescription (Unifine Pentips 31 ángel x1/ 4 in needle) See instructions use with insulin up to FOUR times a day Unchanged Misc Prescription (Unifine Pentips 31 gauge x 1/ 4 needle) use with insulin up to FOUR times a day Unchanged nicotine (nicotine 7 mg/ 24 hr Transderm ER Film) 1 Patches Topical Every day Encounter for smoking cessation counseling Unchanged rosuvastatin (rosuvastatin 5 mg Tab) 1 Tablets By Mouth Every day Pharmacy Information [facility] [address] [facility]: [address] [place], [place] [id number] [phone] Allergies Bactrim (Myalgia) EPINEPHrine (severe tachycardia) Zoloft (Headache) penicillins sulfa drugs (rash) Problems Ongoing - Any problem that you are currently receiving treatment for. Atypical squamous cell of undetermined significance of cervix BMI 21.0-21.9, adult BMI 22.0-22.9, adult Body mass index [BMI] 20.0-20.9, adult Encounter for smoking cessation counseling Smoker Type 1 diabetes Vaginal low risk human papillomavirus (HPV) DNA test positive Vaginal yeast infection Well woman exam Patient Survey You may receive a survey via text or e-mail asking about your office visit. Please share your experience with us by completing your survey. We appreciate your feedback and thank you for choosing us for your care. Normal [facility] Family Medicine Office/Clini c Noteon 12-04-2024 Family Medicine Office/Clinic Note Family Medicine Office/Clinic Note Chief Complaint c/o cough, congestion, ear pain, headaches The patient complains of acute cough and sinus congestion. History of Present Illness The patient is a 49-year-old female presenting with acute cough and sinus symptoms. Symptoms began following wind exposure, initially with severe ear pain, and progressively worsened with sinus congestion and a newly developed cough. The cough started on the day of the consultation with associated shortness of breath and clear sputum. She reports significant right ear pain and a severe headache persisting for several days. Additional symptoms include mild sore throat occurring the day prior. The patient is particularly concerned about the implications of these symptoms in the context of her Type 1 Diabetes, noting elevated blood glucose levels likely due to the physiological stress of the illness. Environmental factors such as high pollen levels are suspected to aggravate symptoms, even though she has no prior history of allergies. As a recent diabetic, she is adjusting to new health challenges [id number] infection. Her medical history includes Type 1 Diabetes diagnosed [id number], with concerns raised during routine exams regarding potential yeast infections following antibiotic use, attributed to her diabetes. She is otherwise generally healthy and has not experienced such illnesses frequently. Review of Systems PHQ Score Initial Depression Screen Score: 0 SCORE See HPI otherwise negative. - Eyes: Denies visual disturbances. - Ears, Nose, Throat: Reports severe right ear pain, sinus congestion, and mild recent sore throat. Denies visual disturbances. - Respiratory: Reports acute cough starting today with clear sputum and shortness of breath. Denies prior inhaler use. - Cardiovascular: Denies chest pain. - Gastrointestinal: Denies symptoms. - Integumentary: Denies symptoms. - Neurological: Reports severe headache since last ; denies dizziness. - Endocrine: Reports elevated blood glucose levels. - Allergic/Immunologic : Denies known allergies; reports concerning exposure to high pollen levels. Physical Exam Vitals & Measurements T: 36.8 ???C(Temporal Artery) HR: 78(Peripheral) RR: 18 BP: 126/72 SpO2: 99% HT: 62 in HT: 158.5 cm WT: 123.459 lb WT: 56 kg BMI: 22.29 Constitutional: Well-groomed, well-nourished, no signs of acute distress. HEENT: Head normocephalic, sclera is clear; oropharynx mildly erythematous and without exudate; otoscopic exam shows bilateral TM opaque and bulging. Cardiothoracic: Heart rate and rhythm is regular strong, normal S1 and S2. No murmurs, rubs, or bruits auscultated. No peripheral edema, peripheral pulses +2 Respiratory: Lung sounds are clear throughout, respirations regular nonlabored. Abdomen/GI: Abdomen soft nondistended. Musculoskeletal: Gait is steady, full range of motion. Integument: No rashes or lesions noted to the exposed skin. Psychiatric: Alert and oriented x 3, pleasant, no mood changes. Assessment/Plan 1. Acute sinusitis (J01.90: Acute sinusitis, unspecified) For acute sinusitis, symptomatic management prevails pending confirmation of viral self-resolution. An azithromycin prescription stands ready for use should symptoms persist beyond the initial observation period, considering potential bacterial infection. 2. Acute cough (R05.1: Acute cough) The acute cough is managed with an albuterol inhaler to mitigate shortness of breath, considering potential environmental irritation. Instructions for inhaler use with a potential spacer were provided along with Tessalon Perles to alleviate the cough without sedation. 3. Sinus congestion (R09.81: Nasal congestion) Sinus congestion treatment follows symptom-alleviation protocols in tandem with sinusitis care, with antibiotic therapy reserved for validated need after preliminary observation for viral resolution. 4. BMI 22.0-22.9, adult (Z68.22: Body mass index [BMI] 22.0-22.9, adult) Continue healthy lifestyle. The standard range for ages 18 and older is >=18.5 and < 25 kg/m2. Orders: albuterol, 2 inh, Inhalation, q4hr, 1 EA, Refill(s) 1, [facility] [address], 158.5, cm, 12/04/24 8:46:00 EDT, Height/Length Dosing, 56, kg, 12/04/24 8:46:00 EDT, Weight Dosing azithromycin, = 1 packet(s), Oral, As Directed, as directed on package labeling, X 5 day(s), # 6 tab(s), Refills(s) 0, Pharmacy: [facility] [address], 158.5, cm, 12/04/24 8:46:00 EDT, Height/Length Dosing, 56, kg, 12/04/24 8:46:00 EDT, Weight Dosing benzonatate, 200 mg = 1 cap(s), Oral, TID, X 10 day(s), # 30 cap(s), Refills(s) 0, Pharmacy: [facility] [address], 158.5, cm, 12/04/24 8:46:00 EDT, Height/Length Dosing, 56, kg, 12/04/24 8:46:00 EDT, Weight Dosing fluconazole, 150 mg = 1 tab(s), Oral, Once, take 1 tab on day one and 1 tab on day four, # 2 tab(s), Refills(s) 1, Pharmacy: [facility] [address], 158.5, cm, 12/04/24 8:46:00 EDT, Height/Length Dosing, 56, kg, 05 (more content not included)... Normal [facility] Comment on above: Result Comment: Elec tronically Signed By: Brenna Ventura.aliyah\Date and Time Signed: 12/04/24 09:05 EDT HEMOGLOBIN A1con 08-06-2024 HEMOGLOBIN A1c 9.1 % of total Hgb High <5.7 [facility] Comment on above: Result Comment: For someone without known diabetes, a [...] A1c for diagnosis of diabetes for children. Performed By: #### 4 96 #### [facility] [address], [address] [place] [address] Package Handler: Bill Polanco MD PAP [id number] 05-02-2024 Cytology report Cyto stain Doc (Cvx/Vag) Note Invalid Interpretation Code [facility] Comment on above: Result Comment: TEST S RESULT FLAG UNITS REF RANGE LAB Clinician Provided Cytology Information Source.............[facility] No. of containers..01 ThinPrep Vial DIAGNOSIS: 01 NEGATIVE FOR INTRAEPITHELIAL LESION OR MALIGNANCY. Specimen adequacy: 01 Satisfactory for evaluation. Endocervical and/or squamous metaplastic cells (endocervical component) are present. Performed by: Winston Mancuso Scratch Brusher (ASCP) . 01 Note: Note 02 The Pap smear is a screening test designed to aid in the detection of premalignant and malignant conditions of the uterine cervix. It is not a diagnostic procedure and should not be used as the sole means of detecting cervical cancer. Both false-positive and false-negative reports do occur. Test Methodology: Note 02 This liquid based ThinPrep(R) pap test was screened with the use of an image guided system. HPV Genotype Reflex Note 01 Criteria not met, HPV Genotype not performed. FLAG LEGEND: L-Low Normal,H-High Normal,LL-Alert Low,HH-Alert High <-Panic Low,>-Panic High,A-Abnormal,AA-Critical Abnormal Performed at: 01 [facility] [address] [place] [address] Jamel Gomez MD, [address] [address] Darlene Tompkins MD, Performed By: #### 1 [id number] #### [facility] [address] [place] [address] HPV 16+18+31+33+35+39+4 5+51+52+56+58+59+66 +68 DNA Probe+sig amp Ql (Cvx) Negative Invalid Interpretation Code Negative [facility] Comment on above: Result Comment: This nucleic acid amplification test detects fourteen high-risk HPV types (16,18,31,33,35,39,45,51,52,56,58,59,66,68) without differentiation. Performed at: [facility] [address] [place], [place] [id number] MD Jason Mccullough Performed at: = [facility] [id number] MD Leda Colon Performed By: #### 1 [id number] #### [facility] [address] [place] [address] Reminderson 05-02-2024 Reminders Reminders - From: Yoana Roberts To: [facility] - Clinical; Sent: 05/02/2024 13:13:08 EDT Show up: 05/02/2024 13:13:00 EDT Subject: Ambulatory Reminder Due Date/Time: 05/03/2024 13:12:00 EDT Pap and HPV were negative. We will repeat pap in 1 year Results: Date Result Name Value Ref Range 04/26/2024 8:31 HPV Aptima Negative (Negative - ) 04/26/2024 8:31 PAP Note Pt has been notified. Normal [facility] Ambulatory Visit Summaryon 0 04-26-2024 Ambulatory Visit Summary Ambulatory Visit Summary EARLINEJANICE Jes :1975 Visit Date:04/26/2024 Ambulatory Visit Instructions Your Diagnosis Atypical squamous cell of undetermined significance of cervix Vaginal low risk human papillomavirus (HPV) DNA test positive Your Care Team Attending Physician - Yoana Roberts Primary Care Physician - Yoana Roberts This Is Your Medications List Misc Prescription (Unifine Pentips 31 ángel x1/4 in needle) Misc Prescription (Unifine Pentips 31 gauge x 1/4 needle) Misc Prescription (glucometer, lancets, alcohol swab, insulin pen and needles) insulin glargine (insulin glargine 100 units/mL subcutaneous solution) insulin lispro (insulin lispro 100 units/mL injectable solution) nicotine (nicotine 7 mg/24 hr Transderm ER Film) rosuvastatin (rosuvastatin 5 mg Tab) Procedures Performed Cryo, pelvic laparoscopy (2004), TL, Tonsillectomy, Tonsillectomy. Discharge Vitals Temperature (Temporal Artery) 36.6 ?C Heart Rate (Peripheral) 78 Respiratory Rate 16 Blood Pressure 118/72 Height 158.5 cm Height 62 in Weight 53.2 kg Weight 117.04 lb BMI 21.18 Medications What How Much When Why Instructions Unchanged insulin glargine (insulin glargine 100 units/ mL subcutaneous solution) 7 Units Subcutaneous At bedtime Unchanged insulin lispro (insulin lispro 100 units/ mL injectable solution) See instructions Take 2 units of lispro if BS between 151-200 Take 4 units of lispro if BS between 201-250 Take 6 units of lispro if BS between 251-300 Take 8 units of lispro if BS between 301-350 Take 10 units of lispro if BS between 351-400 Take 14 units of lispro if BS between >400 Unchanged Misc Prescription (glucometer, lancets, alcohol swab, insulin pen and needles) 0 Unchanged Misc Prescription (Unifine Pentips 31 ángel x1/ 4 in needle) See instructions use with insulin up to FOUR times a day Unchanged Misc Prescription (Unifine Pentips 31 gauge x 1/ 4 needle) use with insulin up to FOUR times a day Unchanged nicotine (nicotine 7 mg/ 24 hr Transderm ER Film) 1 Patches Topical Every day Encounter for smoking cessation counseling Unchanged rosuvastatin (rosuvastatin 5 mg Tab) 1 Tablets By Mouth Every day Allergies Bactrim (Myalgia) EPINEPHrine (severe tachycardia) Zoloft (Headache) penicillins sulfa drugs (rash) Problems Ongoing - Any problem that you are currently receiving treatment for. Adult BMI 28.0-28.9 kg/sq m Atypical squamous cell of undetermined significance of cervix Body mass index [BMI] 20.0-20.9, adult Encounter for smoking cessation counseling Smoker Type 1 diabetes Vaginal low risk human papillomavirus (HPV) DNA test positive Well woman exam Patient Survey You may receive a survey via text or e-mail asking about your office visit. Please share your experience with us by completing your survey. We appreciate your feedback and thank you for choosing us for your care. Education Materials Pap Test Why am I having this test? A Pap test, also called a Pap smear, is a screening test to check for signs of: ? Infection. ? Cancer of the cervix. The cervix is the lower part of the uterus that opens into the vagina. ? Changes that may be a sign that cancer is developing (precancerous changes). Women need this test on a regular basis. In general, you should have a Pap test every 3 years until you reach menopause or age 65. Women aged 30?60 may choose to have their Pap test done at the same time as an HPV (human papillomavirus) test every 5 years (instead of every 3 years). Your health care provider may recommend having Pap tests more or less often depending on your medical conditions and past Pap test results. What is being tested? Cervical cells are tested for signs of infection or abnormalities. What kind of sample is taken? Your health care provider will collect a sample of cells from the surface of your cervix. This will be done using a small cotton swab, plastic spatula, or brush that is inserted into your vagina using a tool called a speculum. This sample is often collected during a pelvic exam, when you are lying on your back on an exam table with your feet in footrests (stirrups). In some cases, fluids (secretions) from the cervix or vagina may also be collected. How do I prepare for this test? ? Be aware of where you are in your menstrual cycle. If you are menstruating on the day of the test, you may be asked to reschedule. ? You may need to reschedule if you have a known vaginal infection on the day of the test. ? Follow instructions from your health care provider about: ? Changing or stopping your regular medicines. Some medicines can cause abnormal test results, such as vaginal medicines and tetracycline. ? Avoiding douching 2?3 days before or the day of the test. Tell a health care provider about: ? Any allergies you have. ? All medicines you are allison (more content not included)... Normal [facility] Family Medicine Office/Clini c Noteon 04-26-2024 Family Medicine Office/Clinic Note Family Medicine Office/Clinic Note Chief Complaint 3m PAP HPI Staff Janice is a 49 year old female presenting with 3m PAP Last pap was abnormal- Done 01/11/24 Atypical Squamous Cells and HPV was positive *Nicotine patches prescribed at time of last encounter to aid in quitting smoking, pt states she has not gotten the patches. Still smoking. History of Present Illness pt presents today for repeat pap test. Last test was ASCuS and HPV positive Review of Systems PHQ Score Initial Depression Screen Score: 0 SCORE Physical Exam Vitals & Measurements T: 36.6 ?C(Temporal Artery) HR: 78(Peripheral) RR: 16 BP: 118/72 SpO2: 95% HT: 62 in HT: 158.5 cm WT: 53.2 kg WT: 117.04 lb BMI: 21.18 General: Well developed, well nourished, in no acute distress Neck: Neck supple. No masses or palpable cervical nodes. Trachea midline. Thyroid without nodules, masses, tenderness, or enlargement Breast: No mass, nodule, discharge, or erythema bilaterally, and no axillary lymphadenopathy Lungs: Normal respiratory effort and clear to auscultation Cardio: Regular rate and rhythm, normal S1 and S2, no murmur, no rub Abdomen: Soft, non-distended, non-tender, normal bowel sounds x4 Gyno: normal external genitalia. Urethra no discharge. Vagina normal without lesions, thick white vaginal discharge. Cervix normal, without lesions. Pap obtained Neurologic: Grossly normal Skin: [place], moist, no tenting Lymph Nodes: No cervical adenopathy, nodes normal Mental Status: Alert and oriented x3. Normal mood and affect Assessment/Plan 1. Atypical squamous cell of undetermined significance of cervix (R87.610: Atypical squamous cells of undetermined significance on cytologic smear of cervix (ASC-US)) pap obtained wihtout difficulty. large amount of thick white discharged noted around cervix. will send diflucan. all questions answered. If this one is also abnormal discussed referral to OBGYN for colposcopy. Ordered: fluconazole, 150 mg = 1 tab(s), Oral, Once, take 1 tab on day one and 1 tab on day four, # 2 tab(s), Refills(s) 1, Pharmacy: [facility] [address], 158.5, cm, 04/26/24 8:26:00 EDT, Height/Length Dosing, 53.2, kg, 04/26/24 8:26:00 EDT, Weight Dosing E&M of Est. Patient Moderate 30-39 Min 63985 PAP w/ HPV and Genotype rflx 2. Vaginal low risk human papillomavirus (HPV) DNA test positive (R87.821: Vaginal low risk human papillomavirus (HPV) DNA test positive) pap with HPV ordered Ordered: fluconazole, 150 mg = 1 tab(s), Oral, Once, take 1 tab on day one and 1 tab on day four, # 2 tab(s), Refills(s) 1, Pharmacy: [facility] [address], 158.5, cm, 04/26/24 8:26:00 EDT, Height/Length Dosing, 53.2, kg, 04/26/24 8:26:00 EDT, Weight Dosing E&M of Est. Patient Moderate 30-39 Min 68896 PAP [id number] w/ HPV and Genotype rflx 3. Encounter for smoking cessation counseling (Z71.6: Tobacco abuse counseling) will send patches Ordered: fluconazole, 150 mg = 1 tab(s), Oral, Once, take 1 tab on day one and 1 tab on day four, # 2 tab(s), Refills(s) 1, Pharmacy: [facility] [address], 158.5, cm, 04/26/24 8:26:00 EDT, Height/Length Dosing, 53.2, kg, 04/26/24 8:26:00 EDT, Weight Dosing nicotine, 1 patch(es), Topical, Daily, 30 EA, Refill(s) 1, [facility], 158.5, cm, 04/26/24 8:26:00 EDT, Height/Length Dosing, 53.2, kg, 04/26/24 8:26:00 EDT, Weight Dosing nicotine, 1 patch(es), Topical, Daily, 30 EA, Refill(s) 0, [facility], 158.5, cm, 02/02/24 9:13:00 EDT, Height/Length Dosing, 51.7, kg, 02/02/24 9:15:00 EDT, Weight Dosing E&M of Est. Patient Moderate 30-39 Min 35496 4. Vaginal yeast infection (B37.31: Acute candidiasis of vulva and vagina) diflucan sent Ordered: E&M of Est. Patient Moderate 30-39 Min 98237 5. BMI 21.0-21.9, adult (Z68.21: Body mass index [BMI] 21.0-21.9, adult) BMI education Ordered: E&M of Est. Patient Moderate 30-39 Min 35638 Follow-up No qualifying data available Patient Education Pap Test Cervical Biopsy Problem List/Past Medical History Ongoing Adult BMI 28.0-28.9 kg/sq m Atypical squamous cell of undetermined significance of cervix BMI 21.0-21.9, adult Body mass index [BMI] 20.0-20.9, adult Encounter for smoking cessation counseling Smoker Type 1 diabetes Vaginal low risk human papillomavirus (HPV) DNA test positive Vaginal yeast infection Well woman exam Historical No qualifying data Procedure/Surgical History Cryo, pelvic laparoscopy (2004), TL, Tonsillectomy, Tonsillectomy. Medications Diflucan 150 mg Tab, 150 mg= 1 tab(s), Oral, Once, 1 refills glucometer, lancets, alcohol swab, insulin pen and needles, 0 insulin glargine 100 units/mL subcutaneous solution, 7 unit(s), SubCutaneous, Bedtime insulin lispro 100 units/mL injectable solution, See Instructions nicotine 7 mg/24 hr Transderm ER Film, 1 patch(es), Topical, Daily, 1 refills rosuvastatin 5 mg Tab, 5 mg= 1 tab(s), Oral, Daily Unifine Pentips 31 ángel x1/4 in needle (more content not included)... Normal [facility] Comment on above: Result Comment: Elec tronically Signed By: Yoana Roberts\.br\Date and Time Signed: 04/26/24 08:41 EDT PAP [id number] 04-26-2024 Gynecological Body Site ENDOCERVIX Normal [facility] Comment on above: Performed By: #### 1 [id number] #### [facility] [address] [place] [address] ALBUMINon 04-19-2024 Albumin [Mass/Vol] 4.5 g/dL Normal 3.2-5.2 [facility] Comment on above: Performed By: #### 4 5030 #### [facility] [address] [place], [place] [address] Tyler Smith M.D. [id number] FRUCTOSAMINEon 04-19-2024 [facility] - FRUCTOSAMINE, S - FRUCT 347 mcmol/L High 200 - 285 [facility] Comment on above: Result Comment: Test Performed by: [facility] - [address] [address] Sub Prior: Karlie Herring Ph.D.; CLIA# [id number] Performed By: #### 4 5724 #### [facility] [address] [place] [address] [facility] HEMOGLOBIN A1Con 04-19-2024 Glucose [Mass/Vol] 200 mg/dL High 74-114 [facility] Comment on above: Performed By: #### 4 8202 #### [facility] [address] [place], [place] [address] Tyler Smith M.D. [id number] HbA1c (Bld) [Mass fraction] 8.6 % High 4.2-5.6 [facility] Comment on above: Performed By: #### 4 8202 #### [facility] [address] [place], [place] [address] Tyler Smith M.D. [id number] US ANKLE/BRACHIAL INDICES EX TREMITY LIMITEDon 02-16-2024 US ANKLE/BRACHIAL INDICES EXTREMITY LIMITED Patient Info Name: JANICE PAINTING Age: 48 years : 1975 Gender: Female Accession #: $$$[id number]$ Exam Date: 02/16/2024 11:09 AM Patient Status: Outpatient Scourer: Adina Espinosa RDMS (AB) RVS Referring Physician: Kenneth Sparrow MD; Indications E10.65 - Type 1 diabetes mellitus with hyperglycemia Procedure Description 01771 Limited bilateral noninvasive physiologic studies of upper or lower extremity arteries with bidirectional Doppler/PVR waveform analysis at 1-2 levels. Conclusions * Right and left ankle brachial indices are normal. Right EMIR is 1.19. Left EMIR is 1.15. * No evidence of small vessel disease at the transmetatarsal level in both feet. * Right and left toe brachial indices are normal. Recommendations * This study indicates normal resting EMIR's bilaterally. Doppler and PVR waveforms show satisfactory amplitude and triphasic patterns at both ankles. Clinical correlation advised. . Doppler Rt Posterior Tibial: Triphasic Rt Dorsalis Pedis: Triphasic Lt Posterior Tibial: Triphasic Lt Dorsalis Pedis: Triphasic PVR Rt Ankle: Normal Lt Ankle: Normal Rt Digit: Normal Lt Digit: Normal Segmental BP Findings Left brachial pressure not obtained due to diabetic patch. Rt Brachial: 121 Rt Posterior Tibial: 144 Rt Dorsalis Pedis: 143 Rt Digit: 117 1.19 1.18 0.97 Lt Posterior Tibial: 139 Lt Dorsalis Pedis: 134 Lt Digit: 111 1.15 1.11 0.92 Risk Factors Patient has a history of hyperlipidemia, diabetes and tobacco use-previous. . Report Signatures Finalized by WILDER Diana DO on 02/16/2024 11:16 AM Normal [facility] US ANKLE/BRACHIAL INDICES EXTREMITY LIMITED Patient Info Name: JANICE PAINTING Age: 48 years : 1975 Gender: Female Accession #: $$$[id number]$$$ Exam Date: 02/16/2024 11:09 AM Patient Status: Outpatient Scourer: Adina Espinosa RDMS (AB) RVS Referring Physician: Kenneth Sparrow MD; Indications E10.65 - Type 1 diabetes mellitus with hyperglycemia Procedure Description 20479 Limited bilateral noninvasive physiologic studies of upper or lower extremity arteries with bidirectional Doppler/PVR waveform analysis at 1-2 levels. Conclusions * Right and left ankle brachial indices are normal. Right EMIR is 1.19. Left EMIR is 1.15. * No evidence of small vessel disease at the transmetatarsal level in both feet. * Right and left toe brachial indices are normal. Recommendations * This study indicates normal resting EMIR's bilaterally. Doppler and PVR waveforms show satisfactory amplitude and triphasic patterns at both ankles. Clinical correlation advised. . Doppler Rt Posterior Tibial: Triphasic Rt Dorsalis Pedis: Triphasic Lt Posterior Tibial: Triphasic Lt Dorsalis Pedis: Triphasic PVR Rt Ankle: Normal Lt Ankle: Normal Rt Digit: Normal Lt Digit: Normal Segmental BP Findings Left brachial pressure not obtained due to diabetic patch. Rt Brachial: 121 Rt Posterior Tibial: 144 Rt Dorsalis Pedis: 143 Rt Digit: 117 1.19 1.18 0.97 Lt Posterior Tibial: 139 Lt Dorsalis Pedis: 134 Lt Digit: 111 1.15 1.11 0.92 Risk Factors Patient has a history of hyperlipidemia, diabetes and tobacco use-previous. . Report Signatures Finalized by WILDER Diana DO on 02/16/2024 11:16 AM Dictated by: VALERIANO CROOK III on WedFeb 16, 2024 11:18:06 AM EDT Transcribed by: VALERIANO CROOK III on WedFeb 16, 2024 11:18:06 AM EDT Finalized by: VALERIANO CROOK III on WedFeb 16, 2024 11:18:06 AM EDT Normal [facility] Ambulatory Ambulatory Visit Summaryon 0 02-02-2024 Ambulatory Visit Summary Ambulatory Visit Summary JANICE PAINTING DOB:1975 Visit Date:02/02/2024 Ambulatory Visit Instructions Your Care Team Attending Physician - Yoana Roberts Primary Care Physician - Yoana Roberts This Is Your Medications List Misc Prescription (Unifine Pentips 31 ángel x1/4 in needle) Misc Prescription (Unifine Pentips 31 gauge x 1/4 needle) Misc Prescription (glucometer, lancets, alcohol swab, insulin pen and needles) insulin glargine (insulin glargine 100 units/mL subcutaneous solution) insulin lispro (insulin lispro 100 units/mL injectable solution) rosuvastatin (rosuvastatin 5 mg Tab) Procedures Performed Cryo, pelvic laparoscopy (2004), TL, Tonsillectomy, Tonsillectomy. Discharge Vitals Temperature (Temporal Artery) 36.5 ?C Heart Rate (Peripheral) 78 Respiratory Rate 18 Blood Pressure 116/78 Height 158.5 cm Height 62 in Weight 51.7 kg Weight 113.74 lb BMI 20.58 What to do next Scheduled Follow-Up Appointments Wednesday 10:00 AM EDT With: Yoana Roberts Where: [facility] Demetrio Normal [facility] Family Medicine Office/Clini c Noteon 02-02-2024 Family Medicine Office/Clinic Note Family Medicine Office/Clinic Note [facility] Staff Janice is a 48 year old presenting to establish care Establish Care: History: Any previous diagnosis: DM History of seeing any specialist: circular knitter helper, When was your last doctors visit: No PCP Last provider: N/A Any recent labs: AiC- 01/19/24- Does all her lab work in [facility] UTD: Colonoscopy: na Mammogram: 01/05/24 Pelvic/Pap: 01/05/24 Acute: Current issues/complaints: Does want help to quit smoking, she has cut down from a 1/2 pack to now is only 2-3 daily History of Present Illness pt presents today to establish care for PCP. she was seen by me for her well woman last month. but would like to see me as PCP as well. Review of Systems PHQ Score Initial Depression Screen Score: 0 SCORE Physical Exam Vitals & Measurements T: 36.5 ?C(Temporal Artery) HR: 78(Peripheral) RR: 18 BP: 116/78 SpO2: 98% HT: 62 in HT: 158.5 cm WT: 51.7 kg WT: 113.74 lb BMI: 20.58 General: alert, no acute distress ENMT: oral mucosa moist, no pharyngeal erythema or exudate Cardiovascular: regular rate and rhythm, normal peripheral perfusion Respiratory: Lungs CTA, respirations non labored Extremities: no deformity, no trauma Neurological: oriented x 4, LOC appropriate for age, CN II-XII intact, motor strength equal & normal bilaterally, speech normal Assessment/Plan 1. Encounter for smoking cessation counseling (Z71.6: Tobacco abuse counseling) pt was seen by circular knitter helper and was told she needed to quit smoking because he was unable to palpate pulses in her feet. she is scheduled for u/s next week. she has decreased her smoking to 2 per day from 10 per day. discussed Wellbutrin and patches. pt would like to try the patches first. will order lowest dose since she is down to 2 per day already. RTC 4 weeks for follow up. 2. Type 1 diabetes (E10.9: Type 1 diabetes mellitus without complications) pt is followed by circular knitter helper. last HGBA1c is 8.1 in December, her insulin dose was adjusted at that time. . will have it rechecked in April. she has follow up with him in May. 3. Body mass index [BMI] 20.0-20.9, adult (Z68.20: Body mass index [BMI] 20.0-20.9, adult) BMI education given. encouraged protein Follow-up No qualifying data available Problem List/Past Medical History Ongoing Adult BMI 28.0-28.9 kg/sq m Body mass index [BMI] 20.0-20.9, adult Encounter for smoking cessation counseling Smoker Type 1 diabetes Well woman exam Historical No qualifying data Procedure/Surgical History Cryo, pelvic laparoscopy (2004), TL, Tonsillectomy, Tonsillectomy. Medications glucometer, lancets, alcohol swab, insulin pen and needles, 0 insulin glargine 100 units/mL subcutaneous solution, 7 unit(s), SubCutaneous, Bedtime insulin lispro 100 units/mL injectable solution, See Instructions rosuvastatin 5 mg Tab, 5 mg= 1 tab(s), Oral, Daily Unifine Pentips 31 ángel x1/4 in needle, See Instructions, 11 refills Unifine Pentips 31 gauge x 1/4 needle Allergies Bactrim (Myalgia) EPINEPHrine (severe tachycardia) Zoloft (Headache) penicillins sulfa drugs (rash) Social History Alcohol - Low Risk, 02/26/2015 Current, 1-2 times per month, 02/26/2015 Substance Abuse - Denies Substance Abuse, 02/26/2015 Tobacco - High Risk, 02/26/2015 4 or less cigarettes(less than 1/4 pack)/day in last 30 days Tobacco Use:. Cigarettes, Started age 17.0 Years. Yes, 02/02/2024 Family History CAD (coronary artery disease): Mother. Diabetes mellitus type 2: Brother. Heart failure: Father. Hyperthyroidism: Mother. Immunizations Vaccine Date Status Comments SARS-CoV-2 (COVID-19) Ad26 vaccine - Not Given Postpone due to refusal influenza virus vaccine, inactivated - Not Given Patient Refuses Normal [facility] Comment on above: Result Comment: Elec tronically Signed By: Yoana Roberts\.br\Date and Time Signed: 02/02/24 09:42 EDT Consultation Noteon 01-26-20 Consultation Note [id number] #1.00TIFF Normal [facility] CHEM 7on 01-12-2024 Anion gap [Moles/Vol] 13 mmol/L Normal 10-20 [facility] Comment on above: Order Comment: [facility] has implemented the eGFR calculation approach that does not have a coefficient for race that conforms to the NKF-ASN Task Force Recommendations. Performed By: #### 4 6953 #### [facility] [address] [place] [address] Tyler Smith M.D. [id number] Chloride [Moles/Vol] 103 mmol/L Normal 98-108 [facility] Comment on above: Order Comment: [facility] has implemented the eGFR calculation approach that does not have a coefficient for race that conforms to the NKF-ASN Task Force Recommendations. Performed By: #### 4 6953 #### [facility] [address] [place] [address] Tyler Smith M.D. [id number] Creatinine [Mass/Vol] 0.84 mg/dL Normal 0.40-1.10 [facility] Comment on above: Order Comment: [facility] has implemented the eGFR calculation approach that does not have a coefficient for race that conforms to the NKF-ASN Task Force Recommendations. Performed By: #### 4 6953 #### LAB [address] [place] [address] Tyler Smith M.D. [id number] EGFR 87 mL/min/1.73 m2 Normal >=60 [facility] Comment on above: Order Comment: [facility] has implemented the eGFR calculation approach that does not have a coefficient for race that conforms to the NKF-ASN Task Force Recommendations. Result Comment: Beronica mated GFR was calculated using the 2020 CKD-EPI creatinine equation. Performed By: #### 4 6953 #### [address] [address] Tyler Smith M.D. [id number] Glucose [Mass/Vol] 142 mg/dL High 65-99 [facility] Comment on above: Order Comment: [facility] has implemented the eGFR calculation approach that does not have a coefficient for race that conforms to the NKF-ASN Task Force Recommendations. Performed By: #### 4 6953 #### [address] [address] Tyler Smith M.D. [id number] HCO3 (Bld) [Moles/Vol] 24 mmol/L Normal 21-32 [facility] Comment on above: Order Comment: [facility] has implemented the eGFR calculation approach that does not have a coefficient for race that conforms to the NKF-ASN Task Force Recommendations. Performed By: #### 4 6953 #### LAB [address] [place] [address] Tyler Smith M.D. [id number] Potassium [Moles/Vol] 4.3 mmol/L Normal 3.5-5.1 [facility] Comment on above: Order Comment: [facility] has implemented the eGFR calculation approach that does not have a coefficient for race that conforms to the NKF-ASN Task Force Recommendations. Performed By: #### 4 6953 #### [facility] [address] [place] [address] Tyler Smith M.D. [id number] Sodium [Moles/Vol] 136 mmol/L Normal 135-145 [facility] Comment on above: Order Comment: [facility] has implemented the eGFR calculation approach that does not have a coefficient for race that conforms to the NKF-ASN Task Force Recommendations. Performed By: #### 4 6953 #### [facility] [address] [place] [address] Tyler Smith M.D. [id number] Urea nitrogen [Mass/Vol] 15 mg/dL Normal 8-25 [facility] Comment on above: Order Comment: [facility] has implemented the eGFR calculation approach that does not have a coefficient for race that conforms to the NKF-ASN Task Force Recommendations. Performed By: #### 4 6953 #### [address] [address] Tyler Smith M.D. [id number] Urea nitrogen/Creatinine [Mass ratio] 17.9 mg/mg Normal 10.0-20.0 [facility] Comment on above: Order Comment: [facility] has implemented the eGFR calculation approach that does not have a coefficient for race that conforms to the NKF-ASN Task Force Recommendations. Performed By: #### 4 6953 #### LAB [address] [place] [address] Tyler Smith M.D. [id number] LIPID PANELon 01-12-2024 Cholesterol [Mass/Vol] 143 mg/dL Normal 100-199 [facility] Comment on above: Result Comment: [facility] Cholesterol Education Program Guidelines: Cholesterol Desirable: <200 mg/dL Borderline High: 200-239 mg/dL High: greater than or equal to 240 mg/dL Performed By: #### 4 6087 #### [facility] [address] [place] [address] Tyler Smith M.D. [id number] Cholesterol in HDL [Mass/Vol] 59 mg/dL Normal 40-59 [facility] Comment on above: Result Comment: [facility] Cholesterol Education Program Guidelines: HDL Cholesterol Low: <40 mg/dL Near Optimal: 40-59 mg/dL High: greater than or equal to 60 mg/dL Performed By: #### 4 6087 #### [facility] [address] [place] [address] Tyler Smith M.D. [id number] Cholesterol.total/C holesterol in HDL [Mass ratio] 2.4 {ratio} Normal [facility] Comment on above: Result Comment: Fema le Cholesterol/HDL Ratio: Average risk: 4.4 1/2 average risk: 3.3 2 x average risk: 7.1 Performed By: #### 4 6087 #### [facility] [address] [place] [address] Tyler Smith M.D. [id number] LDL CHOLESTEROL CALCULATED 69 mg/dL Normal 10-130 [facility] Comment on above: Result Comment: [facility] Cholesterol Education Program Guidelines: LDL Cholesterol Optimal: <100 mg/dL Near Optimal/above Optimal: 100-129 mg/dL Borderline High: 130-159 mg/dL High: 160-189 mg/dL Very High: greater than or equal to 190 mg/dL Performed By: #### 4 6087 #### [facility] [address] [place] [address] Tyler Smith M.D. [id number] NON HDL CHOL 84 mg/dL Normal [facility] Comment on above: Result Comment: [facility] Cholesterol Education Program Guidelines: NON HDL Cholesterol Desirable: <130 mg/dL Borderline High: 130-159 mg/dL High: 160-189 mg/dL Very High: > or = 190 mg/dL Performed By: #### 4 6087 #### [facility] [address] [place] [address] Tyler Smith M.D. [id number] Triglyceride [Mass/Vol] 73 mg/dL Normal 30-150 [facility] Comment on above: Result Comment: [facility] Cholesterol Education Program Guidelines: Triglyceride Normal: <150 mg/dL Borderline High: 150-199 mg/dL High: 200-499 mg/dL Very High: greater than or equal to 500 mg/dL Performed By: #### 4 6087 #### [facility] [address] [place] [address] Tyler Smith M.D. [id number] PAP 01-11-2024 Cytology report Cyto stain Doc (Cvx/Vag) Note Abnormal [facility] Comment on above: Result Comment: TEST S RESULT FLAG UNITS REF RANGE LAB Clinician Provided Cytology Information Source.............Cervix No. of containers..01 ThinPrep Vial DIAGNOSIS: [A] 01 EPITHELIAL CELL ABNORMALITY. ATYPICAL SQUAMOUS CELLS OF UNDETERMINED SIGNIFICANCE (ASC-US). Recommendation: [A] 01 Suggest follow up as clinically appropriate. Specimen adequacy: 01 Satisfactory for evaluation. Endocervical and/or squamous metaplastic cells (endocervical component) are present. Performed by: 01 Latanya High, Scratch Brusher (ASCP) Electronically si... 01 Darlene Tompkins MD, Pathologist . 01 Pathologist ICD10: 01 R87.610 Note: Note 01 The Pap smear is a screening test designed to aid in the detection of premalignant and malignant conditions of the uterine cervix. It is not a diagnostic procedure and should not be used as the sole means of detecting cervical cancer. Both false-positive and false-negative reports do occur. Test Methodology: Note 01 This liquid based ThinPrep(R) pap test was screened with the use of an image guided system. HPV Genotype Reflex Note 01 Criteria not met, HPV Genotype not performed. FLAG LEGEND: L-Low Normal,H-High Normal,LL-Alert Low,HH-Alert High <-Panic Low,>-Panic High,A-Abnormal,AA-Critical Abnormal Performed at: [address] [address] Darlene Tompkins MD, Performed By: #### 1 [id number] #### [facility] [address] [place] [address] HPV 16+18+31+33+35+39+4 5+51+52+56+58+59+66 +68 DNA Probe+sig amp Ql (Cvx) Positive Abnormal Negative [facility] Comment on above: Result Comment: This nucleic acid amplification test detects fourteen high-risk HPV types (16,18,31,33,35,39,45,51,52,56,58,59,66,68) without differentiation. Performed at: [address] [id number] MD Leda Colon Performed at: =[facility] [id number] MD Leda Colon Performed By: #### 1 [id number] #### [facility] [address] [place] [id number] Physician Rubin Lord 024 Pathologist review Marvin (Unsp spec) [Interp] Note Invalid Interpretation Code [facility] Comment on above: Result Comment: TEST S RESULT FLAG UNITS REF RANGE LAB Physician Read Pap Note 01 Performed FLAG LEGEND: L-Low Normal,H-High Normal,LL-Alert Low,HH-Alert High <-Panic Low,>-Panic High,A-Abnormal,AA-Critical Abnormal Performed at: 01 [facility] [address] [address] Darlene Tompkins MD, Performed at: [facility] [place] [address] [place], [place] [id number] MD Leda Colon Performed By: #### 3 [id number] #### [facility] [address] [place] [address] Reminderson 01-11-2024 Reminders - From: Yoana Roberts To: [facility] - Clinical; Sent: 01/11/2024 14:42:31 EDT Show up: 01/11/2024 14:35:00 EDT Subject: Ambulatory Reminder Due Date/Time: 01/12/2024 14:34:00 EDT Pap was abnormal Atypical Squamous Cells and HPV was also positive. Will need to repeat pap in 3 months. Results: Date Result Name Ind Value Ref Range 01/05/2024 10:54 HPV Aptima (A) Positive (Negative - ) 01/05/2024 10:54 PAP [id number] (A) Note 01/05/2024 10:54 Physician Read PAP Note pt notified of message below, transferred to front end software engineer to set up 3 month repeat pap Normal [facility] Outside Mammographyon 2023 Outside Mammography [id number]# 1.00TIFF Normal [facility] Ambulatory Visit Summaryon 0 01-05-2024 Ambulatory Visit Summary JANICE PAINTING :1975 Visit Date:01/05/2024 Ambulatory Visit Instructions Your Diagnosis Well woman exam BMI 20.0-20.9, adult Smoker Your Care Team Attending Physician - Yoana Roberts Primary Care Physician - Yoana Roberts This Is Your Medications List Misc Prescription (Unifine Pentips 31 ángel x1/4 in needle) Misc Prescription (Unifine Pentips 31 gauge x 1/4 needle) Misc Prescription (glucometer, lancets, alcohol swab, insulin pen and needles) insulin glargine (insulin glargine 100 units/mL subcutaneous solution) insulin lispro (insulin lispro 100 units/mL injectable solution) rosuvastatin (rosuvastatin 5 mg Tab) Procedures Performed Cryo, pelvic laparoscopy (2004), TL, Tonsillectomy, Tonsillectomy. Discharge Vitals Heart Rate (Peripheral) 80 Respiratory Rate 16 Blood Pressure 104/70 Height 158.5 cm Height 62 in Weight 52.30 kg Weight 115.06 lb BMI 20.82 What to do next Scheduled Follow-Up Appointments Wednesday 9:20 AM EDT With: Yoana Roberts Where: [facility] Normal [facility] Family Medicine Office/Clini c Noteon 01-05-2024 Family Medicine Office/Clinic Note HPI Staff Janice is a 48 year old female presenting for well woman Woman check up: Last pap: 09/2022 Last Alisson: 01/05/24 Results of lap pap: normal Where was it done: Dr Lau hx: # of pregnancies..1. abortions... live births.1.. living children...1 menstrual cycle (normal,heavy,ect): normal History of STD: yes, 4-5 years ago unsure what it was Do you want tested for STD today: no Vaginal discharge, odor, itching: no Self breast exam at home? yes Hx of breast, cervical or uterine cancer in the family: no History of Present Illness pt presents today for well woman exam Review of Systems PHQ Score Initial Depression Screen Score: 0 SCORE Physical Exam Vitals & Measurements HR: 80(Peripheral) RR: 16 BP: 104/70 SpO2: 99% HT: 62 in HT: 158.5 cm WT: 52.30 kg WT: 115.06 lb BMI: 20.82 General: Well developed, well nourished, in no acute distress Neck: Neck supple. No masses or palpable cervical nodes. Trachea midline. Thyroid without nodules, masses, tenderness, or enlargement Breast: No mass, nodule, discharge, or erythema bilaterally, and no axillary lymphadenopathy Lungs: Normal respiratory effort and clear to auscultation Cardio: Regular rate and rhythm, normal S1 and S2, no murmur, no rub Abdomen: Soft, non-distended, non-tender, normal bowel sounds x4 Gyno: normal external genitalia. Urethra no discharge. Vagina normal without lesions, no vaginal discharge. Cervix normal, without lesions. Uterus normal. No adnexal masses. Pap obtained Neurologic: Grossly normal Skin: [place], moist, no tenting Lymph Nodes: No cervical adenopathy, nodes normal Mental Status: Alert and oriented x3. Normal mood and affect Assessment/Plan 1. Well woman exam (Z01.419: Encounter for gynecological examination (general) (routine) without abnormal findings) pt presents today for well woman exam. BSE discussed. pap obtained without difficulty. all questions answered.pt is considering switching to this office for her PCP care as well. she does not currently have a PCP. RTC as needed Ordered: PAP w/ HPV and Genotype rflx 2. BMI 20.0-20.9, adult (Z68.20: Body mass index [BMI] 20.0-20.9, adult) BMI education complete Ordered: PAP w/ HPV and Genotype rflx 3. Smoker (F17.200: Nicotine dependence, unspecified, uncomplicated) continue not smoking Ordered: PAP w/ HPV and Genotype rflx Follow-up No qualifying data available Problem List/Past Medical History Ongoing Adult BMI 28.0-28.9 kg/sq m Smoker Well woman exam Historical No qualifying data Procedure/Surgical History Cryo, pelvic laparoscopy (2004), TL, Tonsillectomy, Tonsillectomy. Medications glucometer, lancets, alcohol swab, insulin pen and needles, 0 insulin glargine 100 units/mL subcutaneous solution, 7 unit(s), SubCutaneous, Bedtime insulin lispro 100 units/mL injectable solution, See Instructions rosuvastatin 5 mg Tab, 5 mg= 1 tab(s), Oral, Daily Unifine Pentips 31 ángel x1/4 in needle, See Instructions, 11 refills Unifine Pentips 31 gauge x 1/4 needle Allergies Bactrim (Myalgia) EPINEPHrine (severe tachycardia) Zoloft (Headache) penicillins sulfa drugs (rash) Social History Alcohol - Low Risk, 02/26/2015 Current, 1-2 times per month, 02/26/2015 Substance Abuse - Denies Substance Abuse, 02/26/2015 Tobacco - High Risk, 02/26/2015 10 or more cigarettes (1/2 pack or more)/day in last 30 days Tobacco Use:. Cigarettes, Started age 17.0 Years. Yes, 11/12/2021 Family History CAD (coronary artery disease): Mother. Diabetes mellitus type 2: Brother. Heart failure: Father. Hyperthyroidism: Mother. Immunizations Vaccine Date Status Comments SARS-CoV-2 (COVID-19) Ad26 vaccine - Not Given Postpone due to refusal influenza virus vaccine, inactivated - Not Given Patient Refuses Normal [facility] Comment on above: Result Comment: Elec tronically Signed By: Yoana Roberts.br\Date and Time Signed: 01/05/24 11:10 EDT PAP [id number] 01-05-2024 Gynecological Body Site CERVIX Normal [facility] Comment on above: Performed By: #### 1 [id number] #### [facility] [address] [place] [address] MG MAMM SCREEN 3D ANGELITA CADon 12-09-2022 MG MAMM SCREEN 3D ANGELITA CAD Patient: JANICE PAINTING Exam Date: 12/09/2022 : 1975 Gender:F Ordering : DR JAYNE LAU . Admission #: [id number] Family : Order #: [id number] CLICK HERE TO VIEW EXAM RADIOLOGY REPORT PROCEDURE: MAMMOGRAM SCREENING 3D BILATERAL CAD COMPARISON: MG MAMM SCREEN ANGELITA W CAD, 10/08/2020. MG MAMM SCREEN 3D ANGELITA CAD, 11/05/2021. INDICATIONS: Screening mammography Calculator Name NCI Breast Cancer Risk Assessment Tool 5 Year Breast Cancer Risk 1.10% Lifetime Breast Cancer Risk 13.00% Personal Breast Cancer No Personal Ovarian Cancer No Treatments None Family Cancers None LOCATION: [facility] BREAST COMPOSITION: Extremely dense, which lowers the sensitivity of mammography. FINDINGS: DIAGNOSTIC CATEGORY 2--BENIGN FINDING. NO CHANGE FROM COMPARISON. Scattered benign-appearing nodules are present. Multiple bilateral benign-appearing axillary lymph nodes are present. RIGHT BREAST: No significant suspicious finding. LEFT BREAST: No significant suspicious finding. RECOMMENDATIONS: ROUTINE MAMMOGRAM AND CLINICAL EVALUATION IN 12 MONTHS. PLEASE NOTE: A NORMAL MAMMOGRAM DOES NOT EXCLUDE THE POSSIBILITY OF BREAST CANCER. A CLINICALLY SUSPICIOUS PALPABLE LUMP SHOULD BE BIOPSIED. Dictated by: Matthew Melo MD on 12/09/2022 at 09:59 Approved by: Matthew Melo MD on 12/09/2022 at 10:07 Normal [facility] Glucose (Bld) [Mass/Vol]on 08-24-2021 Glucose [Mass/Vol] 127 mg/dL [facility] Interpretation and review of laboratory results Abnormal [facility] HbA1c (Bld) [Mass fraction]o n 06-24-2022 Interpretation and review of laboratory results Abnormal [facility] POC Hemoglobin A1Con 022 HbA1c (Bld) [Mass fraction] 6.7 % Abnormal 4.0 - 6.0 % [facility] HbA1c (Bld) [Mass fraction]o n 12-10-2021 Interpretation and review of laboratory results Abnormal [facility] POC Hemoglobin A1Con 022 HbA1c (Bld) [Mass fraction] 8.2 % Abnormal 4.0 - 6.0 % [facility] Vital Signs Date Time Vital Sign Value Performing Clinician Facility 01-10-2025 11:00-0400 Body mass index (BMI) [Ratio] 22.39 kg/m2 Floresita Bob CNP Work Phone: [facility] 01-10-2025 11:00-0400 Body weight 55.52 kg Floresita Bob CNP Work Phone: [facility] 01-10-2025 11:00-0400 Diastolic blood pressure 75 mm[Hg] Floresita Bob CNP Work Phone: [facility] 01-10-2025 11:00-0400 Heart rate 77 /min Floresita Bob CNP Work Phone: [facility] 01-10-2025 11:00-0400 Systolic blood pressure 117 mm[Hg] Floresita Bob CNP Work Phone: [facility] 10-04-2024 10:58-0500 Body mass index (BMI) [Ratio] 22.86 kg/m2 Floresita Bob CNP Work Phone: [facility] 10-04-2024 10:58-0500 Body weight 56.7 kg Floresita Bob CNP Work Phone: [facility] 10-04-2024 10:58-0500 Diastolic blood pressure 73 mm[Hg] Floresita Bob DRUG ABUSE TREATMENT SPECIALIST Work Phone: [facility] 10-04-2024 10:58-0500 Heart rate 73 /min Floresita Bob DRUG ABUSE TREATMENT SPECIALIST Work Phone: [facility] 10-04-2024 10:58-0500 Systolic blood pressure 118 mm[Hg] Floresita Bob DRUG ABUSE TREATMENT SPECIALIST Work Phone: [facility] 09-06-2024 11:06-0500 Body mass index (BMI) [Ratio] 23.41 kg/m2 Floresita Bob DRUG ABUSE TREATMENT SPECIALIST Work Phone: [facility] 09-06-2024 11:06-0500 Body weight 58.06 kg Floresita Bob DRUG ABUSE TREATMENT SPECIALIST Work Phone: [facility] 09-06-2024 11:06-0500 Diastolic blood pressure 81 mm[Hg] Floresita Bob DRUG ABUSE TREATMENT SPECIALIST Work Phone: [facility] 09-06-2024 11:06-0500 Heart rate 98 /min Floresita Bob CNP Work Phone: [facility] 09-06-2024 11:06-0500 Systolic blood pressure 126 mm[Hg] Floresita Bob DRUG ABUSE TREATMENT SPECIALIST Work Phone: [facility] 08-09-2024 10:56-0500 Body mass index (BMI) [Ratio] 22.35 kg/m2 Floresita Bob DRUG ABUSE TREATMENT SPECIALIST Work Phone: [facility] 08-09-2024 10:56-0500 Body weight 55.43 kg Floresita Bob DRUG ABUSE TREATMENT SPECIALIST Work Phone: [facility] 08-09-2024 10:56-0500 Diastolic blood pressure 83 mm[Hg] Floresita Bob DRUG ABUSE TREATMENT SPECIALIST Work Phone: [facility] 08-09-2024 10:56-0500 Heart rate 89 /min Floresita Bob DRUG ABUSE TREATMENT SPECIALIST Work Phone: [facility] 08-09-2024 10:56-0500 Systolic blood pressure 130 mm[Hg] Floresita Bob TAN Work Phone: [facility] 06-28-2024 09:49-0500 Diastolic blood pressure 79 mm[Hg] Floresita Salas RN [facility] 06-28-2024 09:49-0500 Heart rate 85 /min Floresita Salas RN [facility] 06-28-2024 09:49-0500 Respiratory rate 16 /min Floresita Salas RN [facility] 06-28-2024 09:49-0500 Systolic blood pressure 125 mm[Hg] Floresita Salas RN [facility] 06-21-2024 15:16-0500 Body height 157.5 cm Papo Norris JOHN [facility] 05-10-2024 09:47-0400 Body mass index (BMI) [Ratio] 21.53 kg/m2 Floresita Bob DRUG ABUSE TREATMENT SPECIALIST Work Phone: [facility] 05-10-2024 09:47-0400 Body weight 53.39 kg Floresita Bob DRUG ABUSE TREATMENT SPECIALIST Work Phone: [facility] 05-10-2024 09:47-0400 Diastolic blood pressure 81 mm[Hg] Floresita Bob DRUG ABUSE TREATMENT SPECIALIST Work Phone: [facility] 05-10-2024 09:47-0400 Heart rate 93 /min Floresita Bob DRUG ABUSE TREATMENT SPECIALIST Work Phone: [facility] 05-10-2024 09:47-0400 Systolic blood pressure 128 mm[Hg] Floresita Bob DRUG ABUSE TREATMENT SPECIALIST Work Phone: [facility] 01-26-2024 10:43-0400 Body mass index (BMI) [Ratio] 21.07 kg/m2 Kenneth Sparrow MD Work Phone: [facility] 01-26-2024 10:43-0400 Body weight 52.25 kg Kenneth Sparrow MD Work Phone: [facility] 01-26-2024 10:43-0400 Diastolic blood pressure 79 mm[Hg] Kenneth Sparrow MD Work Phone: [facility] 01-26-2024 10:43-0400 Heart rate 84 /min Kenneth Sparrow MD Work Phone: [facility] 01-26-2024 10:43-0400 SaO2% (BldA) [Mass fraction] 98 % Kenneth Sparrow MD Work Phone: [facility] 01-26-2024 10:43-0400 Systolic blood pressure 135 mm[Hg] Kenneth Sparrow MD Work Phone: [facility] 11-03-2023 09:59-0400 Body mass index (BMI) [Ratio] 22.13 kg/m2 Kenneth Sparrow MD Work Phone: [facility] 11-03-2023 09:59-0400 Body weight 54.88 kg Kenneth Sparrow MD Work Phone: [facility] 11-03-2023 09:59-0400 Diastolic blood pressure 71 mm[Hg] Kenneth Sparrow MD Work Phone: [facility] 11-03-2023 09:59-0400 Heart rate 80 /min Kenneth Sparrow MD Work Phone: [facility] 11-03-2023 09:59-0400 Systolic blood pressure 113 mm[Hg] Kenneth Sparrow MD Work Phone: [facility] 09-01-2023 12:56-0500 Body height 157.5 cm Kenneth Sparrow MD Work Phone: [facility] 09-01-2023 12:56-0500 Body mass index (BMI) [Ratio] 21.77 kg/m2 Kenneth Sparrow MD Work Phone: [facility] 09-01-2023 12:56-0500 Body weight 53.98 kg Kenneth Sparrow MD Work Phone: [facility] 09-01-2023 12:56-0500 Diastolic blood pressure 76 mm[Hg] Kenneth Sparrow MD Work Phone: [facility] 09-01-2023 12:56-0500 Heart rate 76 /min Kenneth Sparrow MD Work Phone: [facility] 09-01-2023 12:56-0500 Systolic blood pressure 120 mm[Hg] Kenneth Sparrow MD Work Phone: [facility] 04-28-2023 13:09-0400 Body mass index (BMI) [Ratio] 20.98 kg/m2 Kenneth Sparrow MD Work Phone: [facility] 04-28-2023 13:09-0400 Body weight 52.03 kg Kenneth Sparrow MD Work Phone: [facility] 04-28-2023 13:09-0400 Diastolic blood pressure 78 mm[Hg] Kenneth Sparrow MD Work Phone: [facility] 04-28-2023 13:09-0400 Heart rate 86 /min Kenneth Sparrow MD Work Phone: [facility] 04-28-2023 13:09-0400 Systolic blood pressure 120 mm[Hg] Kenneth Sparrow MD Work Phone: [facility] 12-30-2022 13:18-0400 Body height 157.5 cm Kenneth Sparrow MD Work Phone: [facility] 12-30-2022 13:18-0400 Body mass index (BMI) [Ratio] 22.31 kg/m2 Kenneth Sparrow MD Work Phone: [facility] 12-30-2022 13:18-0400 Body weight 55.34 kg Kenneth Sparrow MD Work Phone: [facility] 12-30-2022 13:18-0400 Diastolic blood pressure 78 mm[Hg] Kenneth Sparrow MD Work Phone: [facility] 12-30-2022 13:18-0400 Heart rate 73 /min Kenneth Sparrow MD Work Phone: [facility] 12-30-2022 13:18-0400 Systolic blood pressure 135 mm[Hg] Kenneth Sparrow MD Work Phone: [facility] 09-23-2022 10:43-0500 Body height 157.5 cm Kenneth Sparrow MD Work Phone: [facility] 09-23-2022 10:43-0500 Body mass index (BMI) [Ratio] 22.68 kg/m2 Kenneth Sparrow MD Work Phone: [facility] 09-23-2022 10:43-0500 Body weight 56.25 kg Kenneth Sparrow MD Work Phone: [facility] 09-23-2022 10:43-0500 Diastolic blood pressure 80 mm[Hg] Kenneth Sparrow MD Work Phone: [facility] 09-23-2022 10:43-0500 Heart rate 96 /min Kenneth Sparrow MD Work Phone: [facility] 09-23-2022 10:43-0500 Systolic blood pressure 132 mm[Hg] Kenneth Sparrow MD Work Phone: [facility] 06-24-2022 10:44-0500 Body height 157.5 cm Kenneth Sparrow MD Work Phone: [facility] 06-24-2022 10:44-0500 Body mass index (BMI) [Ratio] 23.41 kg/m2 Kenneth Sparrow MD Work Phone: [facility] 06-24-2022 10:44-0500 Body weight 58.06 kg Kenneth Sparrow MD Work Phone: [facility] 06-24-2022 10:44-0500 Diastolic blood pressure 76 mm[Hg] Kenneth Sparrow MD Work Phone: [facility] 06-24-2022 10:44-0500 Heart rate 72 /min Kenneth Sparrow MD Work Phone: [facility] 06-24-2022 10:44-0500 Systolic blood pressure 111 mm[Hg] Kenneth Sparrow MD Work Phone: [facility] 12-10-2021 13:23-0400 Body height 157.5 cm Kenneth Sparrow MD Work Phone: [facility] 12-10-2021 13:23-0400 Body mass index (BMI) [Ratio] 23.05 kg/m2 Kenneth Sparrow MD Work Phone: [facility] 12-10-2021 13:23-0400 Body weight 57.15 kg Kenneth Sparrow MD Work Phone: [facility] 12-10-2021 13:23-0400 Diastolic blood pressure 70 mm[Hg] Kenneth Sparrow MD Work Phone: [facility] 12-10-2021 13:23-0400 Heart rate 106 /min Kenneth Sparrow MD Work Phone: [facility] 12-10-2021 13:23-0400 Systolic blood pressure 123 mm[Hg] Kenneth Sparrow MD Work Phone: [facility] 11-19-2021 10:44-0400 Body height 157.5 cm [employer] Work Phone: [facility] [employer] 11-19-2021 10:44-0400 Body mass index (BMI) [Ratio] 23.74 kg/m2 [employer] Work Phone: [facility] [employer] 11-19-2021 10:44-0400 Body weight 58.88 kg [employer] Work Phone: [facility] [employer] 11-12-2021 08:22-0400 Blood Pressure Location Shaan OLIVARES [facility] 11-12-2021 08:22-0400 Diastolic blood pressure 76 mm[Hg] Shaan OLIVARES [facility] [place] 11-12-2021 08:22-0400 Heart rate 87 /min Shaan OLIVARES [facility] 11-12-2021 08:22-0400 Respiratory rate 16 /min Shaan OLIVARES [facility] 11-12-2021 08:22-0400 SaO2% (BldA) [Mass fraction] 98 % Shaan OLIVARES [facility] [place] 11-12-2021 08:22-0400 Systolic blood pressure 110 mm[Hg] Shaan OLIVARES [facility] 11-03-2021 09:00-0400 Body height 157.5 cm Kenneth Sparrow MD Work Phone: [facility] 11-03-2021 09:00-0400 Body mass index (BMI) [Ratio] 23.78 kg/m2 Kenneth Sparrow MD Work Phone: [facility] 11-03-2021 09:00-0400 Body weight 58.97 kg Kenneth Sparrow MD Work Phone: [facility] 11-03-2021 09:00-0400 Diastolic blood pressure 66 mm[Hg] Kenneth Sparrow MD Work Phone: [facility] 11-03-2021 09:00-0400 Heart rate 84 /min Kenneth Sparrow MD Work Phone: [facility] 11-03-2021 09:00-0400 Systolic blood pressure 104 mm[Hg] Kenneth Sparrow MD Work Phone: [facility] 10-29-2021 13:41-0400 Body height 157.5 cm [employer] Work Phone: [facility] [employer] 10-22-2021 10:31-0400 Body height 157.5 cm [employer] Work Phone: [facility] [employer] 10-22-2021 10:31-0400 Body mass index (BMI) [Ratio] 23.63 kg/m2 [employer] Work Phone: [employer] 10-22-2021 10:31-0400 Body weight 58.6 kg [employer] Work Phone: [employer] 10-22-2021 10:31-0400 Diastolic blood pressure 70 mm[Hg] [employer] Work Phone: [employer] 10-22-2021 10:31-0400 Systolic blood pressure 114 mm[Hg] [employer] Work Phone: [employer] Encounters Encounter Date Encounter Type Care Provider Facility Start: 01-10-2025 End: 01-10-2025 Office outpatient visit 25 minutes Floresita Bob CNP Work Phone: [facility] Comment on above: Type 1 diabetes meghan itus with hyperglycemia (HCC) (Primary Dx); Dyslipidemia Start: 01-10-2025 End: 01-10-2025 ambulatory FLORESITA BOB [facility] Start: 12-06-2024 ambulatory [facility] Start: 12-04-2024 End: 12-04-2024 ambulatory Brenna Love Facility:[facility] Start: 10-04-2024 End: 10-04-2024 Office outpatient visit 25 minutes Floresita Bob CNP Work Phone: [facility] Comment on above: Type 1 diabetes meghan itus with hyperglycemia (HCC) (Primary Dx); Dyslipidemia Start: 10-04-2024 End: 10-04-2024 ambulatory FLORESITA BOB [facility] Start: 09-06-2024 End: 09-06-2024 Office outpatient visit 25 minutes Floresita Bob CNP Work Phone: [facility] Comment on above: Type 1 diabetes meghan itus with hyperglycemia (HCC) (Primary Dx) Start: 09-06-2024 End: 09-06-2024 ambulatory FLORESITA BOB [facility] Start: 08-18-2024 End: 08-18-2024 Documentation procedure Floresita Bob CNP Work Phone: [facility] Start: 08-09-2024 End: 08-09-2024 Office outpatient visit 25 minutes Floresita Bob CNP Work Phone: [facility] Comment on above: Type 1 diabetes meghan itus with hyperglycemia (HCC) (Primary Dx); Dyslipidemia Start: 08-09-2024 End: 08-09-2024 ambulatory FLORESITA BOB [facility] Start: 07-25-2024 End: 07-25-2024 Refill Floresita Bob DRUG ABUSE TREATMENT SPECIALIST Work Phone: [facility] Comment on above: Dyslipidemia Start: 07-20-2024 End: 07-21-2024 Refill Floresita Bob DRUG ABUSE TREATMENT SPECIALIST Work Phone: [facility] Comment on above: Type 1 diabetes meghan itus with hyperglycemia (HCC) (Primary Dx) Start: 07-19-2024 End: 07-23-2024 [facility] JO[facility] Start: 06-30-2024 ambulatory [facility] Start: 06-28-2024 End: 06-28-2024 Nutrition therapy Floresita Joann Bob DRUG ABUSE TREATMENT SPECIALIST Work Phone: [facility] Comment on above: Type 1 diabetes meghan itus with hyperglycemia (HCC) (Primary Dx) Start: 06-28-2024 End: 07-02-2024 ambulatory HANOVER PARKE [facility] Start: 06-21-2024 End: 06-21-2024 Nutrition therapy Floresita Joann Bob DRUG ABUSE TREATMENT SPECIALIST Work Phone: [facility] Comment on above: Type 1 diabetes meghan itus with hyperglycemia (HCC) Start: 06-21-2024 End: 06-25-2024 ambulatory [facility] Start: 06-20-2024 End: 06-20-2024 Refill Floresita Bob DRUG ABUSE TREATMENT SPECIALIST Work Phone: [facility] Comment on above: Type 1 diabetes meghan itus with hyperglycemia (HCC) (Primary Dx) Start: 06-16-2024 End: 06-16-2024 Refill Floresita Bob DRUG ABUSE TREATMENT SPECIALIST Work Phone: [facility] Comment on above: Type 1 diabetes meghan itus with hyperglycemia (HCC) Start: 05-17-2024 End: 05-21-2024 ambulatory [facility] Start: 05-10-2024 End: 05-10-2024 Office outpatient visit 25 minutes Floresita Bob CNP Work Phone: [facility] Comment on above: Type 1 diabetes meghan itus with hyperglycemia (HCC) (Primary Dx); Dyslipidemia Start: 05-10-2024 End: 05-10-2024 ambulatory FLORESITA BOB [facility] Start: 04-26-2024 End: 04-26-2024 Lab Drop off Yoana L Yuriy [facility] Start: 04-26-2024 End: 04-26-2024 ambulatory INTERLACER Yoana L Yuriy [place]: 04-19-2024 End: 04-23-2024 ambulatory [facility] Start: 04-12-2024 ambulatory INTERLACER Yoana L Yuriy Facil ity:[facility] Start: 03-08-2024 End: 03-08-2024 Refill Floresita Bob CNP Work Phone: [facility] Comment on above: Type 1 diabetes meghan itus without complication (HCC) Start: 02-16-2024 End: 02-16-2024 [facility] Start: 02-09-2024 End: 02-09-2024 Refill Kenneth Sparrow MD Work Phone: [facility] Comment on above: Dyslipidemia (Primar y Dx); Type 1 diabetes mellitus without complication (HCC) Start: 02-02-2024 End: 02-02-2024 ambulatory Yoana L Yuriy Facility[facility] Start: 01-26-2024 End: 01-26-2024 Office outpatient visit 25 minutes Kenneth Sparrow MD Work Phone: [facility] Comment on above: Type 1 diabetes meghan itus with hyperglycemia (HCC) (Primary Dx); Dyslipidemia Start: 01-26-2024 End: 01-26-2024 ambulatory KENNETH SPARROW [facility] Start: 01-20-2024 Refill Kenneth Sparrow MD Work Phone: [facility] Comment on above: Type 1 diabetes meghan itus without complication (HCC) Start: 01-12-2024 End: 01-16-2024 ambulatory [facility] Start: 01-05-2024 End: 01-05-2024 Lab Drop off Yoana Alan Yuriy [facility] Start: 01-05-2024 End: 01-05-2024 ambulatory Yoana L Yuriy [place] [place] Start: 11-12-2023 Refill Kenneth Sparrow MD Work Phone: [facility] Start: 11-03-2023 End: 11-03-2023 Office outpatient visit 25 minutes Kenneth Sparrow MD Work Phone: [facility] Comment on above: Type 1 diabetes meghan itus with hyperglycemia (HCC) (Primary Dx) Start: 09-01-2023 End: 09-01-2023 Office outpatient visit 25 minutes Kenneth Sparrow MD Work Phone: [facility] [facility] Comment on above: Type 1 diabetes meghan itus with hyperglycemia (HCC) (Primary Dx) Start: 08-25-2023 End: 08-29-2023 ambulatory [facility] Start: 04-28-2023 End: 04-28-2023 Office outpatient visit 15 minutes Kenneth Sparrow MD Work Phone: [facility] Comment on above: Type 1 diabetes meghan itus without complication (HCC) (Primary Dx) Start: 12-30-2022 End: 12-30-2022 Office outpatient visit 25 minutes Kenneth Sparrow MD Work Phone: [facility] Comment on above: Type 1 diabetes meghan itus without complication (HCC) (Primary Dx) Start: 12-29-2022 Refill Kenneth Sparrow MD Work Phone: [facility] Start: 12-09-2022 End: 12-09-[address] JAYNE LAU . Facility: Start: 12-09-2022 End: 12-10-[address] JAYNE LAU . Facility: Start: 09-23-2022 End: 09-23-2022 Office outpatient visit 25 minutes Kenneth Sparrow MD Work Phone: [facility] Comment on above: Type 1 diabetes meghan itus without complication (HCC) (Primary Dx) Start: 06-24-2022 End: 06-24-2022 Office outpatient visit 15 minutes Kenneth Sparrow MD Work Phone: [facility] Comment on above: Type 1 diabetes meghan itus without complication (HCC) (Primary Dx) Start: 02-04-2022 End: 02-05-2022 ambulatory SHAAN Fowler [facility] Start: 02-04-2022 End: 02-04-2022 Subsequent hospital visit by physician [facility] Work Phone: [facility] Start: 01-19-2022 Refill Kenneth Sparrow MD Work Phone: [facility] Start: 12-23-2021 Refill Kenneth Sparrow MD Work Phone: [facility] Start: 12-22-2021 Refill Kenneth Sparrow MD Work Phone: [facility] Start: 12-10-2021 End: 12-10-2021 Office outpatient visit 40 minutes Kenneth Sparrow MD Work Phone: [facility] Comment on above: Type 1 diabetes meghan itus without complication (HCC) (Primary Dx) Start: 11-19-2021 End: 11-20-2021 [facility] Start: 11-19-2021 End: 11-19-2021 Subsequent hospital visit by physician [facility] Work Phone: [facility] Start: 11-13-2021 End: 11-14-2021 ambulatory [facility] Start: 11-12-2021 End: 11-12-2021 Patient encounter procedure Shaan OLIVARES [facility] Start: 11-03-2021 End: 11-03-2021 Office outpatient new 60 minutes Kenneth Sparrow MD Work Phone: [facility] Comment on above: Type 1 diabetes meghan itus without complication (HCC) (Primary Dx) Start: 10-29-2021 End: 10-30-2021 [facility]ulatory [facility] Start: 10-29-2021 End: 10-29-2021 Subsequent hospital visit by physician [facility] Work Phone: [facility] Start: 10-22-2021 End: 10-23-2021 ambulatory [facility] Start: 10-22-2021 End: 10-22-2021 Subsequent hospital visit by physician [facility] Work Phone: [facility] Procedures Date Procedure Procedure Detail Performing Clinician Start: 01-09-2025 External circular knitter helper, CGM dees Floresita Bob DRUG ABUSE TREATMENT SPECIALIST Work Phone: Start: 10-04-2024 External circular knitter helper, CGM dees Floresita Bbo DRUG ABUSE TREATMENT SPECIALIST Work Phone: Start: 09-06-2024 External circular knitter helper, CGM gregory Bob DRUG ABUSE TREATMENT SPECIALIST Work Phone: Start: 08-09-2024 External circular knitter helper, CGM gregory Bob DRUG ABUSE TREATMENT SPECIALIST Work Phone: Start: 05-10-2024 External circular knitter helper, CGM gregory Bob DRUG ABUSE TREATMENT SPECIALIST Work Phone: Start: 01-12-2024 Microalbumin [Mass/v olume] in Urine by Test strip Kenneth Sparrow MD Work Phone: Start: 11-03-2023 External circular knitter helper, CGM sys Kenneth Sparrow MD Work Phone: Start: 04-28-2023 External circular knitter helper, CGM symikel Sparrow MD Work Phone: Start: 12-16-2022 Microalbumin [Mass/v olume] in Urine by Test strip Kenneth Sparrow MD Work Phone: Start: 12-09-2022 Mammography Kenneth jon MD Work Phone: Start: 12-09-2022 Microscopic observat ion [Identifier] in Cervix by Cyto stain Kenneth Sparrow MD Work Phone: Start: 10-05-2022 Ophthalmic examinati on and evaluation Kenneth Sparrow MD Work Phone: Start: 06-24-2022 End: 06-24-2022 Gluc bld gluc mntr dev cleared fda spec home use Kenneth Sparrow MD Work Phone: Start: 12-10-2021 Hemoglobin glycosylated a1c Kenneth Sparrow MD Work Phone: Start: 11-19-2021 Microalbumin [Mass/v olume] in Urine by Test strip Kenneth Sparrow MD Work Phone: Start: 08-02-2004 Cryo, pelvic laparoscopy Shaan OLIVARES TL Shaan OLIVARES Tonsillectomy Shaan OLIVARES Tonsillectomy Shaan OLIVARES Plan of Treatment Date Care Activity Detail Author Start: 11-19-2026 Lipid panel Lipids [facility] Start: 12-27-2025 eGFR Diabetes eGFR Diabetes [facility] Start: 12-27-2025 Urine screening for protein Urine (micro)albumin/creatin ine ratio - Diabetes [facility] Start: 12-09-2025 Screening for malignant neoplasm of cervix [facility] Start: 12-06-2025 Glaucoma screening Diabetic Eye Exam [facility] Start: 10-04-2025 Diabetic foot examination Diabetic Foot Exam [facility] Start: 04-18-2025 End: 04-18-2025 Patient encounter procedure 04/18/2025 11:00 AM EDT Office Visit [facility] [address] [facility] [place] [phone] Floresita Bob, DRUG ABUSE TREATMENT SPECIALIST [address] [place] [address] [facility] Start: 04-02-2025 Influenza vaccination Influenza Vaccine (Season Ended) [facility] Start: 03-29-2025 Hemoglobin A1c measurement A1C [facility] Start: 01-11-2025 Urine screening for protein [facility] Start: 01-10-2025 End: 01-10-2025 Patient encounter procedure 01/10/2025 11:00 AM EDT Office Visit [facility] [address] [place] [phone] Floresita Bob, DRUG ABUSE TREATMENT SPECIALIST [address] [place] [address] [facility] Start: 12-25-2024 End: 10-04-2025 Basic metabolic 1998 panel - Serum or Plasma Chem 7 Lab Routine Type 1 diabetes mellitus with hyperglycemia (HCC) Expected: 12/25/2024, Expires: 10/04/2025 [facility] Comment on above: Expected: 12/25/2024, Expires: Start: 12-25-2024 End: 10-04-2025 Hemoglobin A1c/Hemoglobin.total in Blood Hemoglobin A1c Lab Routine Type 1 diabetes mellitus with hyperglycemia (HCC) Expected: 12/25/2024, Expires: 10/04/2025 [facility] Comment on above: Expected: 12/25/2024, Expires: Start: 12-25-2024 End: 10-04-2025 Lipid 1996 panel - Serum or Plasma Lipid Panel Lab Routine Type 1 diabetes mellitus with hyperglycemia (HCC) Dyslipidemia Expected: 12/25/2024, Expires: 10/04/2025 [facility] Work Phone: Comment on above: Expected: 12/25/2024, Expires: Start: 12-25-2024 End: 10-04-2025 Microalbumin measurement, urine, quantitative Microalbumin/Creatinin e Ratio, UR Random Lab Routine Type 1 diabetes mellitus with hyperglycemia (HCC) Expected: 12/25/2024, Expires: 10/04/2025 [facility] Comment on above: Expected: 12/25/2024, Expires: Start: 12-25-2024 End: 10-04-2025 Thyrotropin [Units/volume] in Serum or Plasma TSH with Reflex Free T4 Lab Routine Type 1 diabetes mellitus with hyperglycemia (HCC) Expected: 12/25/2024, Expires: 10/04/2025 [facility] Comment on above: Expected: 12/25/2024, Expires: Start: 12-20-2024 Glaucoma screening Diabetic Eye Exam [facility] Start: 11-03-2024 Hemoglobin A1c measurement A1C [facility] Start: 10-31-2024 Diabetic foot examination Diabetic Foot Exam [facility] Start: 10-04-2024 End: 10-04-2024 Patient encounter procedure 10/04/2024 11:00 AM EST Office Visit [facility] [address] [facility] [place] [phone] Floresita Bob, TAN [address] [place] [address] [facility] Start: 09-06-2024 End: 09-06-2024 Patient encounter procedure 09/06/2024 11:15 AM EST Office Visit [facility] [address] [facility] [place] [phone] Floresita Bob, TAN [address] [place] [address] [facility] Start: 08-10-2024 End: 05-10-2025 Hemoglobin A1c/Hemoglobin.total in Blood Hemoglobin A1c Lab Routine Type 1 diabetes mellitus with hyperglycemia (HCC) Expected: 08/10/2024, Expires: 05/10/2025 [facility] Work Phone: Comment on above: Expected: 08/10/2024, Expires: Start: 08-09-2024 End: 08-09-2024 Patient encounter procedure 08/09/2024 11:00 AM EST Office Visit [facility] [address] [place] [address] [place] [phone] Floresita Bob CNP [address] [place] [phone] [facility] Start: 07-19-2024 Hemoglobin A1c measurement A1C [facility] Start: 07-19-2024 End: 07-19-2024 Nutrition therapy 07/19/2024 1:15 PM EST [facility] [address] [place] [phone] [facility] Start: 06-28-2024 End: 06-28-2024 Nutrition therapy 06/28/2024 10:00 AM [facility] [address] [place] [phone] Floresita Salas, recorder gravity prospecting Disposition: [facility] Start: 06-21-2024 End: 06-21-2024 Nutrition therapy 06/21/2024 2:00 PM EST [facility] [address] [place] [phone] Floresita Bob CNP [address] [place] [phone] Discharge Disposition: [facility] Start: 05-17-2024 End: 05-17-2024 Nutrition therapy 05/17/2024 8:30 AM EDT Nutrition [facility] [address] [place] [phone] Floresita Bob CNP [address] [place] [address] Floresita Salas, recorder gravity prospecting Disposition: Home [facility] Start: 05-10-2024 End: 05-10-2024 Patient encounter procedure 05/10/2024 10:00 AM EDT Office Visit [facility] [address] [facility] [place] [phone] Kenneth Sparrow MD [address] [place] [address] [facility] Start: 04-17-2024 End: 01-25-2025 Albumin [Mass/volume] in Serum or Plasma Albumin Lab Routine Type 1 diabetes mellitus with hyperglycemia (HCC) Expected: 04/17/2024, Expires: 01/25/2025 [facility] Comment on above: Expected: 04/17/2024, Expires: Start: 04-17-2024 End: 01-25-2025 Fructosamine Fructosamine Lab Routine Type 1 diabetes mellitus with hyperglycemia (HCC) Expected: 04/17/2024, Expires: 01/25/2025 [facility] Comment on above: Expected: 04/17/2024, Expires: Start: 04-17-2024 End: 01-25-2025 Hemoglobin A1c/Hemoglobin.total in Blood Hemoglobin A1c Lab Routine Type 1 diabetes mellitus with hyperglycemia (HCC) Expected: 04/17/2024, Expires: 01/25/2025 [facility] Comment on above: Expected: 04/17/2024, Expires: Start: 04-13-2024 Hemoglobin A1c measurement A1C [facility] Start: 04-02-2024 COVID-19 Vaccine () COVID-19 Vaccine () [facility] Start: 04-02-2024 COVID-19 Vaccine ( season) COVID-19 Vaccine () [facility] Start: 04-02-2024 Influenza vaccination [facility] Start: 02-16-2024 End: 02-16-2024 Patient encounter procedure 02/16/2024 11:00 AM EDT Appointment [facility] [address] [facility] [place] [phone] Kenneth Sparrow MD [address] [place] [phone] [facility] Start: 01-26-2024 End: 01-26-2024 Patient encounter procedure 01/26/2024 10:45 AM EDT Office Visit [facility] [address] [place] [address] [place] [phone] Kenneth Sparrow MD [address] [place] [phone] [facility] Start: 12-17-2023 Urine screening for protein Urine Microalbumin [facility] Start: 12-10-2023 History and physical examination, annual for health maintenance Wellness Visit [facility] Start: 12-10-2023 Screening for malignant neoplasm of breast Mammogram [facility] Start: 11-24-2023 Hemoglobin A1c measurement A1C [facility] Start: 11-03-2023 End: 11-03-2023 Patient encounter procedure 11/03/2023 10:00 AM EDT Office Visit [facility] [address] [facility] [place] [phone] Kenneth Sparrow MD [address] [place] [phone] [facility] Start: 10-06-2023 Glaucoma screening [facility] Start: 09-01-2023 End: 09-01-2023 Patient encounter procedure 09/01/2023 1:00 PM EST Office Visit [facility] [address] [facility] [place] [phone] Kenneth Sparrow MD [address] [place] [phone] [facility] Start: 08-02-2023 End: 04-28-2024 Hemoglobin A1c/Hemoglobin.total in Blood Hemoglobin A1c Lab Routine Type 1 diabetes mellitus without complication (HCC) Expected: 08/02/2023, Expires: 04/28/2024 [facility] Work Phone: Comment on above: Expected: 08/02/2023, Expires: Start: 07-21-2023 Hemoglobin A1c measurement A1C [facility] Start: 06-18-2023 Hemoglobin A1c measurement A1C [facility] Start: 04-28-2023 End: 04-28-2023 Patient encounter procedure 04/28/2023 1:15 PM EDT Office Visit [facility] [address] [place] [phone] Kenneth Sparrow MD [address] [place] [address] [facility] Start: 04-02-2023 COVID-19 Vaccine ( season) COVID-19 Vaccine ( season) [facility] Start: 04-02-2023 End: 12-31-2023 Hemoglobin A1c/Hemoglobin.total in Blood Hemoglobin A1c Lab Routine Type 1 diabetes mellitus without complication (HCC) Expected: 04/02/2023, Expires: 12/31/2023 [facility] Work Phone: Comment on above: Expected: 04/02/2023, Expires: Start: 04-02-2023 Influenza vaccination [facility] Start: 12-30-2022 End: 12-30-2022 Patient encounter procedure [facility] Start: 12-22-2022 Hemoglobin A1c measurement A1C [facility] Start: 11-19-2022 Microalbumin measurement, urine, quantitative Urine Microalbumin [facility] Start: 11-19-2022 Urine screening for protein Urine Microalbumin [facility] Start: 09-23-2022 End: 09-23-2022 Patient encounter procedure 09/23/2022 Office Visit Endocrinology Kenneth Sparrow MD [address] [place] [address] [facility] Start: 04-02-2022 Influenza vaccination [facility] Start: 03-18-2022 End: 03-18-2022 Patient encounter procedure 03/18/2022 Office Visit Endocrinology Kenneth Sparrow MD [address] [place] [phone] [facility] Start: 03-12-2022 Hemoglobin A1c measurement A1C [facility] Start: 02-04-2022 End: 02-04-2022 Patient encounter procedure 02/04/2022 Appointment Diabetes Services [facility] Start: 12-10-2021 End: 12-10-2021 Patient encounter procedure 12/10/2021 Office Visit Endocrinology Kenneth Sparrow MD [address] [place] [address] [facility] Start: 11-12-2021 End: 11-12-2021 Patient encounter procedure 11/12/2021 Appointment Diabetes Services [facility] Start: 10-29-2021 End: 10-29-2021 Patient encounter procedure [facility] Diet and Nutrition Start: 04-02-2021 Influenza vaccination Flu vaccine (#1) [facility] Start: 2017 Lipid panel Lipid screen [facility] Start: 2017 Screening for malignant neoplasm of breast Mammogram [facility] Start: 2007 Screening for malignant neoplasm of cervix [facility] Start: 1998 Screening for malignant neoplasm of cervix Pap smear [facility] Start: 1996 DTaP/Tdap/Td vaccine (1 - Tdap) DTaP/Tdap/Td vaccine (1 - Tdap) [facility] Start: 1996 Pneumococcal Vaccine: Ped or At-Risk (1 of 2 - PCV) Pneumococcal Vaccine: Ped or At-Risk (1 of 2 - PCV) [facility] Start: 1995 Hepatitis C screening [facility] Start: 1992 HIV screening [facility] Start: 1989 Depression Screen Depression Screen [facility] Start: 1989 Depression screening using PHQ-9 (Patient Health Questionnaire 9) score [facility] Start: 1987 Diabetic foot examination [facility] Start: 1987 Glaucoma screening Ophthalmology Exam [facility] Start: 1987 Microalbumin measurement, urine, quantitative Urine Microalbumin [facility] Start: 1987 Ophthalmic examination and evaluation Ophthalmology Exam [facility] Start: 1983 Pneumococcal 0-64 years Vaccine (1 - PCV) Pneumococcal 0-64 years Vaccine (1 - PCV) [facility] Start: 1983 Pneumococcal 0-64 years Vaccine (1 of 2 - PPSV23) Pneumococcal 0-64 years Vaccine (1 of 2 - PPSV23) [facility] Start: 1983 Pneumococcal Vaccine: Ped or At-Risk (1 - PCV) Pneumococcal Vaccine: Ped or At-Risk (1 - PCV) [facility] Start: 1983 Pneumococcal Vaccine: Ped or At-Risk (1 of 2 - PCV) Pneumococcal Vaccine: Ped or At-Risk (1 of 2 - PCV) [facility] Start: 1983 Pneumococcal Vaccine: Ped or At-Risk (1 of 2 - PPSV23) Pneumococcal Vaccine: Ped or At-Risk (1 of 2 - PPSV23) [facility] Start: 1982 COVID-19 Vaccine (#1) COVID-19 Vaccine (#1) [facility] Start: 1982 COVID-19 Vaccine (1) COVID-19 Vaccine (1) [facility] Start: 1980 History and physical examination, annual for health maintenance Wellness Visit [facility] Start: 1977 COVID-19 Vaccine (#1) COVID-19 Vaccine (#1) [facility] Start: 1977 Hemoglobin A1c measurement A1C [facility] Start: 1977 Hepatitis C screening Hepatitis C screen [facility] Start: 1977 Screening for malignant neoplasm of cervix Pap Smear [facility] Start: 1977 Screening for malignant neoplasm of colon [facility] Start: 1977 Tetanus vaccination Tetanus: Every 10yrs [facility] End: 09-23-2023 Basic metabolic 1998 panel - Serum or Plasma Chem 7 Lab Routine Type 1 diabetes mellitus without complication (HCC) 1 Occurrences starting 09/23/2022 until 09/23/2023 [facility] Comment on above: 1 Occurrences starting 09/23/2022 until 09/23/2023 End: 11-02-2024 Basic metabolic 1998 panel - Serum or Plasma Chem 7 Lab Routine Type 1 diabetes mellitus with hyperglycemia (HCC) 1 Occurrences starting 11/03/2023 until 11/02/2024 [facility] Comment on above: 1 Occurrences starting 11/03/2023 until 11/02/2024 End: 11-03-2022 C peptide [Mass/volume] in Serum or Plasma C-peptide Lab Routine Type 1 diabetes mellitus without complication (HCC) 1 Occurrences starting 11/03/2021 until 11/03/2022 [facility] Comment on above: 1 Occurrences starting 11/03/2021 until 11/03/2022 End: 11-03-2022 Glucose [Mass/volume] in Serum or Plasma Glucose Lab Routine Type 1 diabetes mellitus without complication (HCC) 1 Occurrences starting 11/03/2021 until 11/03/2022 [facility] Comment on above: 1 Occurrences starting 11/03/2021 until 11/03/2022 Hemoglobin A1c/Hemoglobin.total in Blood Hemoglobin A1c Lab Routine Type 1 diabetes mellitus without complication (HCC) Ordered: 09/23/2022 [facility] Work Phone: Comment on above: Ordered: 09/23/2022 Hemoglobin A1c/Hemoglobin.total in Blood Hemoglobin A1c Lab Routine Type 1 diabetes mellitus with hyperglycemia (HCC) Ordered: 11/03/2023 [facility] Comment on above: Ordered: 11/03/2023 Hepatic function 200 0 panel - Serum or Plasma Hepatic function panel Lab Routine Type 1 diabetes mellitus without complication (HCC) Ordered: 12/10/2021 [facility] Comment on above: Ordered: 12/10/2021 End: 11-03-2022 Islet cell antibody measurement Anti-Islet Cell ([id number]) Antibody Lab Routine Type 1 diabetes mellitus without complication (HCC) 1 Occurrences starting 11/03/2021 until 11/03/2022 [facility] Work Phone: Comment on above: 1 Occurrences starting 11/03/2021 until 11/03/2022 End: 11-03-2022 Lipid 1996 panel - Serum or Plasma Lipid Panel Lab Routine Type 1 diabetes mellitus without complication (HCC) 1 Occurrences starting 11/03/2021 until 11/03/2022 [facility] Comment on above: 1 Occurrences starting 11/03/2021 until 11/03/2022 End: 09-23-2023 Lipid 1996 panel - Serum or Plasma Lipid Panel Lab Routine Type 1 diabetes mellitus without complication (HCC) 1 Occurrences starting 09/23/2022 until 09/23/2023 [facility] Comment on above: 1 Occurrences starting 09/23/2022 until 09/23/2023 End: 11-02-2024 Lipid 1996 panel - Serum or Plasma Lipid Panel Lab Routine Type 1 diabetes mellitus with hyperglycemia (HCC) 1 Occurrences starting 11/03/2023 until 11/02/2024 [facility] Comment on above: 1 Occurrences starting 11/03/2023 until 11/02/2024 Measurement of immunoglobulin A in serum specimen IgA Lab Routine Type 1 diabetes mellitus without complication (HCC) Ordered: 12/10/2021 [facility] Comment on above: Ordered: 12/10/2021 Measurement of thyroperoxidase antibody Thyroid peroxidase antibody (TPO) Lab Routine Type 1 diabetes mellitus without complication (HCC) Ordered: 12/10/2021 [facility] Comment on above: Ordered: 12/10/2021 Microalbumin measure ment, urine, quantitative Microalbumin/Creatinin e Ratio, UR Random Lab Routine Type 1 diabetes mellitus without complication (HCC) Ordered: 11/03/2021 [facility] Comment on above: Ordered: 11/03/2021 Microalbumin measure ment, urine, quantitative Microalbumin/Creatinin e Ratio, UR Random Lab Routine Type 1 diabetes mellitus without complication (HCC) Ordered: 09/23/2022 [facility] Comment on above: Ordered: 09/23/2022 Microalbumin measure ment, urine, quantitative Microalbumin/Creatinin e Ratio, UR Random Lab Routine Type 1 diabetes mellitus with hyperglycemia (HCC) Ordered: 11/03/2023 [facility] Work Phone: Comment on above: Ordered: 11/03/2023 End: 11-03-2022 Miscellaneous Lab Test Miscellaneous Lab Test Lab Routine Type 1 diabetes mellitus without complication (HCC) 1 Occurrences starting 11/03/2021 until 11/03/2022 [facility] Comment on above: 1 Occurrences starting 11/03/2021 until 11/03/2022 End: 11-03-2022 Thyrotropin [Units/volume] in Serum or Plasma TSH with Reflex Free T4 Lab Routine Type 1 diabetes mellitus without complication (HCC) 1 Occurrences starting 11/03/2021 until 11/03/2022 [facility] Comment on above: 1 Occurrences starting 11/03/2021 until 11/03/2022 Thyrotropin [Units/volume] in Serum or Plasma TSH with Reflex Free T4 Lab Routine Type 1 diabetes mellitus without complication (HCC) Ordered: 09/23/2022 [facility] Comment on above: Ordered: 09/23/2022 Thyrotropin [Units/volume] in Serum or Plasma TSH with Reflex Free T4 Lab Routine Type 1 diabetes mellitus with hyperglycemia (HCC) Ordered: 11/03/2023 [facility] Comment on above: Ordered: 11/03/2023 Tissue transglutamin ase IgA measurement Tissue Transglutaminase, IgA Lab Routine Type 1 diabetes mellitus without complication (HCC) Ordered: 12/10/2021 [facility] Work Phone: Comment on above: Ordered: 12/10/2021 End: 03-27-2025 US Doppler ankle/brachial index US Doppler ankle/brachial index Vascular Ultrasound Routine Type 1 diabetes mellitus with hyperglycemia (HCC) 1 Occurrences starting 01/26/2024 until 03/27/2025 [facility] Work Phone: Comment on above: 1 Occurrences starting 01/26/2024 until 03/27/2025 Immunizations Immunization Date Immunization Notes Care Provider Dalila goodson NEGATED: Highlighted row has not occurred!11-12-2021 SARS-CoV-2 (COVID-19) Ad26 vaccine, recombinant Shaan OLIVARES [facility] NEGATED: Highlighted row has not occurred!10-15-2021 influenza virus vaccine, unspecified formulation Shaan OLIVARES [facility] Payers Date Payer Category Payer Managed Care PPO (unspecified) [employer] PPO [id number] 2023 Unknown [id number] 2021 Unknown [id number]. 1.13.385.2. [id number] 2021 Private Health Insurance [id number] [id number]. [id number] 2019 Medicaid [id number]. 1.13.385.2. [id number] 2019 Medicaid [id number] 1977 Unknown [id number] 2.16.840.1.005238.3.579.2. 174 1977 Unknown [id number] 2.16.840.1.406101.3.579.2. 174 1977 Unknown [id number] 2.16.840.1.636563.3.579.2. 174 1977 Unknown [id number] 2.16.840.1.074429.3.579.2. 174 1977 Unknown [id number] 2.16.840.1.251612.3.579.2. 174 1977 Unknown [id number] 2.16.840.1.455072.3.579.2. 174 1977 Unknown [id number] 2.16.840.1.732067.3.579.2. 593 1977 Unknown [id number] 2.16.840.1.080107.3.579.2. 593 1977 Unknown [id number] 2.16.840.1.119846.3.579.2. 727 1977 Unknown [id number] 2.16.840.1.677073.3.579.2. 727 1977 Unknown [id number] 2.16.840.1.675327.3.579.2. 72 1977 Unknown [id number] 2.16.840.1.680941.3.579.2. 903 1977 Unknown [id number] 2.16.840.1.424743.3.579.2. 1977 Unknown [id number] 2.16.840.1.294302.3.579.2. 903 1977 Unknown [id number] 2.16.840.1.381472.3.579.2 1977 Unknown [id number] 2.16.840.1.812611.3.579.2 72 1977 Unknown [id number] 2.16.840.1.530052.3.579.2 72 1977 Unknown [id number] 2.16.840.1.679478.3.579.2. 903 1977 Unknown [id number] 2.16.840.1.012160.3.579.2. 1977 Unknown [id number] 2.16.840.1.025170.3.579.2. 1977 Unknown [id number] 2.16.840.1.180310.3.579.2. 1977 Unknown [id number] 2.16.840.1.964291.3.579.2. 903 1977 Unknown [id number] 2.16.840.1.852413.3.579.2. 72 1977 Unknown [id number] 2.16.840.1.520885.3.579.2. 903 1977 Unknown [id number] 2.16.840.1.336735.3.579.2. 3 1977 Unknown [id number] 2.16.840.1.385760.3.579.2. 3 1977 Unknown [id number] 2.16.840.1.014323.3.579.2. 1977 Unknown [id number] 2.16.840.1.545895.3.579.2. 1977 Unknown [id number] 2.16.840.1.571705.3.579.2. 3 1977 Unknown [id number] 2.16.840.1.765113.3.579.2. 1977 Unknown [id number] 2.16.840.1.729039.3.579.2. 903 1959 Private Health Insurance [id number] 1959 Unknown [id number] 1.2.840.137936.1.13.239.2. 7.3.128735.315 Social History Date Type Detail Facility Start: 02-18-2015 End: 05-17-2024 Tobacco smoking status MEIS Smokes tobacco daily [facility] Phone: Start: 02-18-2015 End: 05-17-2024 Cigarettes smoked current (pack per day) - Reported 0.5 [facility] Phone: Start: 1975 Sex Assigned At Not on file [facility] Phone: Start: 11-03-2021 End: 05-17-2024 Tobacco use and exposure Smokeless tobacco non-user [facility] Start: 10-24-2021 End: 12-29-2022 Exposure to SARS-CoV-2 (event) Not sure [facility] Start: 11-12-2021 Tobacco smoking status Heavy t obacco smoker (finding) [facility] Comment on above: encouraged to quit. Start: 09-23-2022 End: 05-17-2024 Sex Assigned At Female [facility] Start: 11-03-2021 Gender identity Identifies as female gender (finding) [facility] Start: 11-03-2021 Sexual orientation Heterosexual (fabiola day) [facility] Start: 09-01-2023 End: 01-10-2025 Alcohol intake Current drinker of alcohol (finding) [facility] Start: 09-01-2023 Alcohol Comment occasionally [facility] Start: 04-26-2024 Tobacco smoking status Light t obacco smoker (finding) [facility] Comment on above: encouraged to quit. Tobacco smoking status Never [facility] Comment on above: encouraged to quit. History of tobacco use Cigarette Smoker [facility] Has the [employer], [employer] threatened to shut off services in your home in past 12Mo No [facility] Are you now , , , , never or living with a partner? [facility] How often to you hav e a drink containing alcohol? Monthly or less [facility] How many standard drinks containing alcohol do you have on a typical day? 3 or 4 [facility] How often do you hav e 6 or more drinks on 1 occasion? Never [facility] How hard is it for y ou to pay for the very basics like food, housing, medical care, and heating Somewhat hard [facility] Do you feel stress - tense, restless, nervous, or anxious, or unable to sleep at night because your mind is troubled all the time - these days [OSQ] To some extent [facility] (I/We) worried wheth er (my/our) food would run out before (I/we) got money to buy more. Never true [facility] Start: 05-17-2024 Education 13 [facility] Medical Equipment Procedure Code Equipment Code Equipment Origin al Text Equipment Identifier Dates glucometer, lanc ets, alcohol swab, insulin pen and needles, Print Requisition, Supply Start: 10-08-2021 Unifine Pentips 31 ángel x1/4 in needle, See Instructions, 100 EA, 11, use with insulin up to FOUR times a day, [address], Supply, 157, cm, 10/15/21 8:10:00 EDT, Height/Length Dosing, 57.2, kg, 10/15/21 8:10:00 EDT, Weight Dosing Start: 11-03-2021 use with insulin up to FOUR times a day Start: 11-03-2021 Use to check blo od sugar 4 times daily and as needed for low blood sugar. ICD10 code: E10.9 . [id number] Start: 12-10-2021 End: 11-03-2023 Use to check blo od sugar 4 times daily and as needed for low blood sugar. ICD10 code: E10.9 . [id number] Start: 12-10-2021 End: 11-03-2023 Use to inject insulin 4 times daily as instructed. . [id number] Start: 12-10-2021 Use to inject insulin 4 times daily as instructed. . [id number] Start: 12-24-2022 End: 01-20-2024 Use to check blo od sugar 2 times daily and as needed for low blood sugar. ICD10 code: E10.65 . [id number] Start: 11-03-2023 Use to check blo od sugar 2 times daily and as needed for low blood sugar. ICD10 code: E10.65 . [id number] Start: 11-03-2023 glucometer, lanc ets, alcohol swab, insulin pen and needles, Print Requisition, Supply Start: 10-08-2021 Unifine Pentips 31 ángel x1/4 in needle, See Instructions, 100 EA, 11, use with insulin up to FOUR times a day, [address], Supply, 157, cm, 10/15/21 8:10:00 EDT, Height/Length Dosing, 57.2, kg, 10/15/21 8:10:00 EDT, Weight Dosing Start: 11-03-2021 use with insulin up to FOUR times a day Start: 11-03-2021 Use to inject insulin 4 times daily as instructed. . [id number] Start: 01-20-2024 glucometer, lanc ets, alcohol swab, insulin pen and needles, Print Requisition, Supply Start: 10-08-2021 Unifine Pentips 31 ángel x1/4 in needle, See Instructions, 100 EA, 11, use with insulin up to FOUR times a day, [address], Supply, 157, cm, 10/15/21 8:10:00 EDT, Height/Length Dosing, 57.2, kg, 10/15/21 8:10:00 EDT, Weight Dosing Start: 11-03-2021 use with insulin up to FOUR times a day Start: 11-03-2021 Goals Date Patient Goal Desired Activity /State Personal health goal Personal health goal Clinical Notes 11-03-2021 to 01-10-2025 Patient InstructionsFloresita Bob CNP - 01/10/2025 11:00 AM EDTPatient InstructionsFloresita Bob CNP - 10/04/2024 11:00 AM ESTTorreyylFloresita locke CNP - 09/06/2024 1:03 PM EST Note Date & Type Note Facility 01-10-2025 Instructions Floresita Bob CNP - 01/10/2025 11:28 AM EDT The week prior to menses when notice BG climbing-suggest may need to give more carb coverage and then reduce back to prior once BG coming back down. Call if BG often under 80 or over 200 prior to return visit. documented in this encounter [facility] 01-10-2025 History of Present illness Narrative Images from the original note were not included. Reason for visit/chief complaint: TYPE 1 DIABETES W/O COMPLICATIONS Date: 01/10/2025 Referring Provider: No ref. provider found Primary Care Provider: Yoana Taylor CNP HPI: Ms. Painting is a 49 y.o. female with hx of an unremarkable PMH, tubal ligation. DM type: T1D/JODIE Duration/since: 10/07/2021 At time of diagnosis, patient was thin (was overweight a few months prior; BMI 28.3). She unintentionally lost about 30 lb over 2-3 months. She was diagnosed with DKA on 10/07/2021. Hx of autoimmune diseases: none Family hx of DM: brother T2DM, MGF ?type started insulin pump therapy on August 31, 2024 Current diabetes medications: OmniPod 5 with Dexcom [id number] settings: Midnight 0.45 4 AM 0.55 8 AM 0.5 Basal total 12 units Sensitivity: 70 Carb ratio: Midnight 15 12 noon 13 5 PM 15 Blood sugar target: 110 Correction threshold: 120 Active insulin time 3 hours Average total daily insulin over the past 2 weeks has been 21.8 units with 59% from basal or 12 units. She has been in auto mode 90% of the time. Exercises in am Wednesday through Wednesday--boluses for breakfast prior to going to the gym. Eg BF 5a, lunch 1p and dinner 6- 7p No recent steroid use. Glucose checks: CGM interpretation: (matches with meter mostly) Type: Dexcom G7 Interpretation: Blood sugars more often are stable overnight. Significant meal spikes post breakfast more often. Continues to climb through exercise. Through the rest of the day more often does well in response to meals. Occasional excursions with dietary choices. Not having frequent lows. - Regarding blood sugar response and exercise--Wednesday through Wednesday exercise money counter post breakfast: -She is not using activity mode for exercise, she did try this after prior visit due to lows while working out--this was not helpful, initially resolved with entering a few less carbohydrates and consuming at meal prior to exercise. She is no longer doing this and not having lows during exercise. - On exercise days, Wednesday through Wednesday: At present on CGM her blood sugars may dip mildly, once down to 70s--most often not low post breakfast at start of exercise OR post breakfast has meal spike without the initial dip in blood sugar--regardless most often has a consistent climb during remainder of workout. -she is entering the accurate amount of carbs prior to the gym. - non exercise days, Wednesday and Wednesday, BG may increase significantly post breakfast or may do well after carbohydrate coverage. -Hypoglycemia awareness: yes, BG threshold: 60, sometimes 80s Lab Results Component Value Date HGBA1C 8.6 (H) 04/19/2024 HGBA1C 8.1 (H) 01/12/2024 HGBA1C 8.3 (H) 08/25/2023 Wt Readings from Last 3 Encounters: 01/10/25 55.5 kg (122 lb 6.4 oz) 10/04/24 56.7 kg (125 lb) 09/06/24 58.1 kg (128 lb) Complications/comorbidities: -Retinopathy: no, visit 12/24 record in chart -Nephropathy: no Lab Results Component Value Date EGFR 87 01/12/2024 EGFR 79 12/16/2022 MICALBCREAT 6 01/12/2024 MICALBCREAT 13 12/16/2022 MICALBCREAT 6 11/19/2021 -Neuropathy: no, does not follow up with podiatry, no feet ulcers/wounds -Prior CV events: no Lab Results Component Value Date LDLCALC 69 01/12/2024 -Smoking status: current--had recently quit and just restarted Diabetes medications tried before/other possible contraindications for DM medications: None No renal impairment, alcoholism, CHF, decompensated liver disease, persistent nausea/vomiting, personal/family hx of medullary thyroid cancer, hx of pancreatitis, GB/biliary disease, recurrent UTI/groin fungal infections, postural hypotension, PVD or osteoporosis. No claudication. Completed DM education in 2023 CDE visit 05/17/24, addressed carb counting for insulin pump preparation DM ed visit 06/21/2024 and 07/19/24: RD visit Review of Systems: as per HPI Medical History: Past Medical History: Diagnosis Date Diabetes mellitus type 2 in nonobese (HCC) Surgical History: Past Surgical History: Procedure Laterality Date LAPAROSCOPY TONSILECTOMY, ADENOIDECTOMY, BILATERAL MYRINGOTOMY AND TUBES TUBAL LIGATION Family History: Family History Problem Relation Age of Onset Thyroid disease Mother Heart disease Mother Diabetes Brother Type 2 Heart disease Maternal Aunt Diabetes Maternal Uncle Diabetes Maternal Grandmother Diabetes Maternal Grandfather Social History: Social History Socioeconomic History Marital status: Number of children: 1 Highest education level: High school graduate Tobacco Use Smoking status: Every Day Current packs/day: 0.50 Average packs/day: 0.5 packs/day for 20.0 years (10.0 ttl pk-yrs) Types: Cigarettes Smokeless tobacco: Never Vaping Use Vaping status: Never Used Substance and Sexual Activity Alcohol use: Yes Comment: occasionally Drug use: Never Social Drivers of Health Financial Resource Strain: Medium Risk (05/17/2024) Overall Financial Resource Strain (CARDIA) Difficulty of Paying Living Expenses: Somewhat hard Food Insecurity: No Food Insecurity (05/17/2024) Hunger Vital Sign Worried About Running Out of Food in the Last Year: Never true Ran Out of Food in the Last Year: Never true Transportation Needs: No Transportation Needs (05/17/2024) PRAPARE - Transportation Lack of Transportation (Medical): No Lack of Transportation (Non-Medical): No Physical Activity: Inactive (05/17/2024) Exercise Vital Sign Days of Exercise per Week: 0 days Minutes of Exercise per Session: 0 min Stress: Stress Concern Present (05/17/2024) [place] [employer] - Occupational Stress Questionnaire Feeling of Stress : To some extent Social Connections: Socially Isolated (05/17/2024) Social Connection and Isolation Panel [NHANES] Frequency of Communication with Friends and Family: More than three times a week Frequency of Social Gatherings with Friends and Family: Once a week Attends Spiritism Services: Never Active Member of Clubs or Organizations: No Attends Club or Organization Meetings: Never Marital Status: Housing Stability: Low Risk (05/17/2024) Housing Stability Vital Sign Unable to Pay for Housing in the Last Year: No Number of Times Moved in the Last Year: 1 Homeless in the Last Year: No Allergies: Allergies Allergen Reactions Bactrim [Sulfamethoxazole-Trimethoprim] Unknown Cephalexin Unknown Penicillins Unknown Zoloft [Sertraline] Headache Epinephrine Palpitations Sulfa (Sulfonamide Antibiotics) Rash Current Medications: Current Outpatient Medications Medication Sig Dispense Refill alcohol swabs PadM Use to check blood sugar up to 4 times daily and as needed for low blood sugar. ICD10 code: E10.9 . 100 each 11 blood sugar diagnostic (glucose blood) strips Use to check blood sugar 2 times daily and as needed for low blood sugar. ICD10 code: E10.65 . 100 each 5 blood-glucose sensor (Dexcom G7 Sensor) Nabila Use as directed every 10 days . 3 each 11 glucagon 1 mg/0.2 mL AtIn Inject 0.2 mL (1 mg total) under the skin as needed (For severe hypoglycemia) . 0.4 mL 3 insulin glargine (Lantus Solostar U-100 Insulin) 100 unit/mL (3 mL) InPn Inject 9 units under the skin daily. . (Patient taking differently: as needed Inject 9 units under the skin .) 15 mL 3 insulin lispro (AdmeLOG,HumaLOG) 100 unit/mL injection As directed via insulin pump up to 40 units daily . 40 mL 3 insulin assembler insulator cart,aut,G6/7,cntr (Omnipod 5 G6-G7 Intro Kt,Gen5,) Crtg Inject 1 each under the skin every 3 (three) days . 1 each 0 insulin pump cart,auto,BT,G6/7 (Omnipod 5 G6-G7 Pods, Gen 5,) Crtg Inject 1 each under the skin every 3 (three) days . 30 each 3 lancets Misc Use to check blood sugar 2 times daily and as needed for low blood sugar. ICD10 code: E10.65 . 100 each 5 pen needle, diabetic 31 gauge x 5/16 Ndle Use to inject insulin 4 times daily as instructed. . 200 each 11 rosuvastatin (CRESTOR) 5 MG tablet Take 1 (one) tablet (5 mg total) by mouth daily . 90 tablet 3 No current facility-administered medications for this visit. Physical Exam: Vitals: BP 117/75 Pulse 77 Wt 55.5 kg (122 lb 6.4 oz) BMI 22.39 kg/m , Body mass index is 22.39 kg/m ., Wt Readings from Last 3 Encounters: 01/10/25 55.5 kg (122 lb 6.4 oz) 10/04/24 56.7 kg (125 lb) 09/06/24 58.1 kg (128 lb) General/Constitutional: , well-developed and in no distress Pulmonary/Chest: effort normal Musculoskeletal: nomal range of motion, normal muscle mass Neurological: alert and oriented Skin:warm and dry, no notable lipohypertrophy Psychiatric: appropriate affect Feet: Pedal pulses are not readily palpable, feet are warm with normal color. Nails are intact. Monofilament sensation intact bilateral. No lower extremity edema. Lab/Imaging Data: No results found for: WBC , HGB , HCT , MCV , PLT Lab Results Component Value Date GLUCOSE 142 (H) 01/12/2024 NA 136 01/12/2024 K 4.3 01/12/2024 CL 103 01/12/2024 BUN 15 01/12/2024 CREATININE 0.77 12/27/2024 Lab Results Component Value Date ALT 25 01/21/2022 AST 15 01/21/2022 ALKPHOS 63 01/21/2022 BILITOT 1.1 01/21/2022 Lab Results Component Value Date TSH 0.95 01/12/2024 THYROIDAB 1.2 01/21/2022 No results found for: PTH , CALCIUM , DAVIAN , PHOS Lab Results Component Value Date HGBA1C 8.6 (H) 04/19/2024 Lab Results Component Value Date LDLCALC 69 01/12/2024 CHOL 143 01/12/2024 HDL 59 01/12/2024 TRIG 73 01/12/2024 CHOLHDL 2.4 01/12/2024 Lab Results Component Value Date MICALBCREAT 6 01/12/2024 C-Peptide Date Value Ref Range Status 06/10/2022 0.36 (L) 0.90 - 5.00 ng/mL Final 11/19: ACR 6, glucose 173, c-peptide 0.85, TC 176, HDL 49, TG 137, LDL 100, TSH 0.92, HMV01-Gj 0.22 (high), IA-2 Ab 0.98 (high), ZnT8 and insulin Abs -ve 01/21/2022: LFTs normal, IgA normal, TTG-IgA negative, TPO-Ab normal 03/25/2022: glucose 226, c-peptide 1.16 (0.38) 06/10/2022: glucose 119, c-peptide 0.36 (0.12) 12/16/2022: glucose 156, GFR 79, TC 131, TG 64, HDL 68, LDL 50, ACR 13, TSH 0.79, A1c 7.3 01/12/2024: TSH 0.95, glucose 142, Na 136, K 4.3, cr 0.84, eGFR 87, TC 143, TG 73, HDL 59, LDL 69, A1c 8.1%, ACR 6 04/19/24: fructosamine 347 (~A1C 7.5%); albumin 4.5, A1c 8.6% 08/05/24: A1c 9.1% 04/19/2024: A1c 8.6%, fructosamine 347, albumin 4.5 12/27/24 A1c 7.9%, ACR 13, TSH 1.14, glu 134, creatinine 0.77, EGFR 96, triglycerides 73, LDL 78 Assessment and plan: Ms. Painting is a 49 y.o. female with T1D/JODIE; Based on high T1D Abs and low c-peptide as above. HbA1c goal 7% At goal? No 12/27/24 A1c 7.9% 08/05/24: A1c 9.1% Lab Results Component Value Date HGBA1C 8.6 (H) 04/19/2024 HGBA1C 8.1 (H) 01/12/2024 HGBA1C 8.3 (H) 08/25/2023 Assessment of glycemic status Patient started insulin pump August 31, 2024, she is using OmniPod and Dexcom G7. She notes that she feels better since starting the pump. Having meal spikes post lunch, more often doing well after breakfast. Response to dinner bolusing is mixed but more often doing okay. Infrequent hypoglycemia. She is sometimes entering less carbohydrates and consuming prior to the gym if her blood sugar upon awakening is in the low normal range. She may enter those grams of carbohydrates later post the gym if she notes her blood sugar is climbing after gym. Lows during exercise have resolved since making this adjustment. I had suggested using activity mode for the gym to prevent lows at last visit but patient notes her carb adjustment seems to do better for her. Recommended testing frequency Using CGM Changes recommended - Post visit after reviewing pump download closer: Advise increase carbohydrate ratio BF to 13 Carbohydrate ratio: Midnight 13, 12 noon 13, 5 PM 15. -If continue to have climbs through exercise, then enter the blood sugar into the pump to get a correction. Reviewed Insulin pump failure plan: Lantus 12 units every 24 hours. Humalog injections prior to meals per carbohydrate ratios above and correction 1 unit for every 70 points over 120. Call if blood sugars often under 80 or over 250 prior to return visit. Retinopathy Due for dilated exam no 12/25 Nephropathy Next microalb due Next cr/eGFR due OSMAN inh/ARB indicated? no 12/25 12/25 no Neuropathy Due for foot exam no 09/2025 Ordered EMIR since couldn't feel DP pulses at prior visit--WNL. CV risk/Lipids ACC 10 yr ASCVD risk Due for repeat lipid panel Statin indicated? started rosuvastatin 5 mg daily (moderate intensity) in 11/2021. I ordered repeat LFTs since bilirubin was mildly elevated in 09/2021 (but improving); came back normal in 12/2021. Statin is well tolerated. LDL 50 with TG 64 in 11/2022. LDL 69 with TG 73 in 01/2024. triglycerides 73, LDL 78 in 12/23 -No muscle aches. Keep on same statin dose. Discussed LDL target is less than 70 and option of increasing. If continues to be above 70 at repeat in 1 year, will increase dose. At present patient prefers to continue current regimen Thyroid functions/other tests Lab Results Component Value Date TSH 0.95 01/12/202412/24: TSH 1.14 Repeat TFTs annually- advised to hold multivitamin or biotin supplement for 5 days prior to lab draw. TTG-Ab/IgA and TPO-Ab normal in 12/2021. Vaccines If not up to date, recommend annual flu vaccine, COVID vaccine, pneumococcal vaccine, HBV vaccine if (specially if <60 years), shingles vaccine >50 years, tetanus vaccine every 10 years, and HPV vaccine (<26 years). Return in about 3 months (around 04/12/2025). 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 documented in this encounter [facility] 01-10-2025 Note Reason for visit/chi ef complaint: TYPE 1 DIABETES W/O COMPLICATIONS Date: 01/10/2025 Referring Provider: No ref. provider found Primary Care Provider: Yoana Taylor CNP HPI: Ms. Painting is a 49 y.o. female with hx of an unremarkable PMH, tubal ligation. DM type: T1D/JODIE Duration/since: 10/07/2021 At time of diagnosis, patient was thin (was overweight a few months prior; BMI 28.3). She unintentionally lost about 30 lb over 2-3 months. She was diagnosed with DKA on 10/07/2021. Hx of autoimmune diseases: none Family hx of DM: brother T2DM, MGF ?type started insulin pump therapy on August 31, 2024 Current diabetes medications: OmniPod 5 with Dexcom [id number] settings: Midnight 0.45 4 AM 0.55 8 AM 0.5 Basal total 12 units Sensitivity: 70 Carb ratio: Midnight 15 12 noon 13 5 PM 15 Blood sugar target: 110 Correction threshold: 120 Active insulin time 3 hours Average total daily insulin over the past 2 weeks has been 21.8 units with 59% from basal or 12 units. She has been in auto mode 90% of the time. Exercises in am Wednesday through Wednesday--boluses for breakfast prior to going to the gym. Eg BF 5a, lunch 1p and dinner 6- 7p No recent steroid use. Glucose checks: CGM interpretation: (matches with meter mostly) Type: Dexcom G7 Interpretation: Blood sugars more often are stable overnight. Significant meal spikes post breakfast more often. Continues to climb through exercise. Through the rest of the day more often does well in response to meals. Occasional excursions with dietary choices. Not having frequent lows. - Regarding blood sugar response and exercise--Wednesday through Wednesday exercise money counter post breakfast: -She is not using activity mode for exercise, she did try this after prior visit due to lows while working out--this was not helpful, initially resolved with entering a few less carbohydrates and consuming at meal prior to exercise. She is no longer doing this and not having lows during exercise. - On exercise days, Wednesday through Wednesday: At present on CGM her blood sugars may dip mildly, once down to 70s--most often not low post breakfast at start of exercise OR post breakfast has meal spike without the initial dip in blood sugar--regardless most often has a consistent climb during remainder of workout. -she is entering the accurate amount of carbs prior to the gym. - non exercise days, Wednesday and Wednesday, BG may increase significantly post breakfast or may do well after carbohydrate coverage. -Hypoglycemia awareness: yes, BG threshold: 60, sometimes 80s Lab Results Component Value Date HGBA1C 8.6 (H) 04/19/2024 HGBA1C 8.1 (H) 01/12/2024 HGBA1C 8.3 (H) 08/25/2023 Wt Readings from Last 3 Encounters: 01/10/25 55.5 kg (122 lb 6.4 oz) 10/04/24 56.7 kg (125 lb) 09/06/24 58.1 kg (128 lb) Complications/comorbidities: -Retinopathy: no, visit 12/24 record in chart -Nephropathy: no Lab Results Component Value Date EGFR 87 01/12/2024 EGFR 79 12/16/2022 MICALBCREAT 6 01/12/2024 MICALBCREAT 13 12/16/2022 MICALBCREAT 6 11/19/2021 -Neuropathy: no, does not follow up with podiatry, no feet ulcers/wounds -Prior CV events: no Lab Results Component Value Date LDLCALC 69 01/12/2024 -Smoking status: current--had recently quit and just restarted Diabetes medications tried before/other possible contraindications for DM medications: None No renal impairment, alcoholism, CHF, decompensated liver disease, persistent nausea/vomiting, personal/family hx of medullary thyroid cancer, hx of pancreatitis, GB/biliary disease, recurrent UTI/groin fungal infections, postural hypotension, PVD or osteoporosis. No claudication. Completed DM education in 2023 CDE visit 05/17/24, addressed carb counting for insulin pump preparation DM ed visit 06/21/2024 and 07/19/24: RD visit Review of Systems: as per HPI Medical History: Past Medical History: Diagnosis Date Diabetes mellitus type 2 in nonobese (HCC) Surgical History: Past Surgical History: Procedure Laterality Date LAPAROSCOPY TONSILECTOMY, ADENOIDECTOMY, BILATERAL MYRINGOTOMY AND TUBES TUBAL LIGATION Family History: Family History Problem Relation Age of Onset Thyroid disease Mother Heart disease Mother Diabetes Brother Type 2 Heart disease Maternal Aunt Diabetes Maternal Uncle Diabetes Maternal Grandmother Diabetes Maternal Grandfather Social History: Social History Socioeconomic History Marital status: Number of children: 1 Highest education level: High school graduate Tobacco Use Smoking status: Every Day Current packs/day: 0.50 Average packs/day: 0.5 packs/day for 20.0 years (10.0 ttl pk-yrs) Types: Cigarettes Smokeless tobacco: Never Vaping Use Vaping status: Never Used Substance and Sexual Activity Alcohol use: Yes Comment: occasionally Drug use: Never Social Drivers of Health Financial Resource Strain: Me (more content not included)... [facility] 12-04-2024 Note Patient Education ENT Cough, Adult A cough helps to clear your throat and lungs. It may be a sign of an illness or another condition. A short-term (acute) cough may last 2?3 weeks. A long-term (chronic) cough may last 8 or more weeks. Many things can cause a cough. They include: ??? Illnesses such as: ? An infection in your throat or lungs. ? Asthma or other heart or lung problems. ? Gastroesophageal reflux. This is when acid comes back up from your stomach. ??? Breathing in things that bother (irritate) your lungs. ??? Allergies. ??? Postnasal drip. This is when mucus runs down the back of your throat. ??? Smoking. ??? Some medicines. Follow these instructions at home: Medicines ??? Take [id number] and prescription medicines only as told by your doctor. ??? Talk with your doctor before you take cough medicine (cough suppressants). Eating and drinking ??? Do not drink alcohol. ??? Do not drink caffeine. ??? Drink enough fluid to keep your pee (urine) pale yellow. Lifestyle ??? Stay away from cigarette smoke. ??? Do not smoke or use any products that contain nicotine or tobacco. If you need help quitting, ask your doctor. ??? Stay away from things that make you cough. These may include perfume, candles, cleaning products, or campfire smoke. General instructions ??? Watch for any changes to your cough. Tell your doctor about them. ??? Always cover your mouth when you cough. ??? If the air is dry in your home, use a cool mist vaporizer or humidifier. ??? If your cough is worse at night, try using extra pillows to raise your head up higher while you sleep. ??? Rest as needed. Contact a doctor if: ??? You have new symptoms. ??? Your symptoms get worse. ??? You cough up pus. ??? You have a fever that does not go away. ??? Your cough does not get better after 2?3 weeks. ??? Cough medicine does not help, and you are not sleeping well. ??? You have pain that gets worse or is not helped with medicine. ??? You are losing weight and do not know why. ??? You have night sweats. Get help right away if: ??? You cough up blood. ??? You have trouble breathing. ??? Your heart is beating very fast. These symptoms may be an emergency. Get help right away. Call 911. ??? Do not wait to see if the symptoms will go away. ??? Do not drive yourself to the hospital. This information is not intended to replace advice given to you by your health care provider. Make sure you discuss any questions you have with your health care provider. Document Revised: 03/19/2023 Document Reviewed: 03/19/2023 [employer] Patient Education ? 2023 SEAT 4a. [facility] 10-04-2024 Instructions Floresita Bob CNP - 10/04/2024 11:21 AM EST More carb coverage at lunch, 12p-5p, ratio 13 MN 15; 5pm 15 If your pump would fail--12 units of lantus every 24 hours And then once you can restart pump--resume 1-2 hours before the next lantus dose would be due And then take humalog prior to meals And for correction Please have labs prior to return visit--fasting; please hold a multivitamin/biotin supplement prior to the lab draw for 5 days documented in this encounter [facility] 10-04-2024 History of Present illness Narrative Images from the original note were not included. Reason for visit/chief complaint: TYPE 1 DIABETES W/O COMPLICATIONS Date: 10/04/2024 Referring Provider: No ref. provider found Primary Care Provider: Yoana Taylor CNP HPI: Ms. Painting is a 49 y.o. female with hx of an unremarkable PMH, tubal ligation. DM type: T1D/JODIE Duration/since: 10/07/2021 At time of diagnosis, patient was thin (was overweight a few months prior; BMI 28.3). She unintentionally lost about 30 lb over 2-3 months. She was diagnosed with DKA on 10/07/2021. Hx of autoimmune diseases: none Family hx of DM: brother T2DM, MGF ?type started insulin pump therapy on August 31, 2024 Current diabetes medications: OmniPod 5 with Dexcom [id number] settings: Midnight 0.45 4 AM 0.55 8 AM 0.5 Basal total 12 units Sensitivity: 70 Carb ratio: 15 Blood sugar target: 110 Correction threshold: 128 Active insulin time 3 hours Average total daily insulin over the past 2 weeks has been 20.8 units with 57% from basal or 12 units. She has been in auto mode 80% of the time. Exercises in am Wednesday through Wednesday Eg BF 5a, lunch 1p and dinner 6- 7p No recent steroid use. -She is not using activity mode for exercise, she did try this after last visit due to lows while working out. She has found it works better if she enters a few less carbs for breakfast if her blood sugar is on the low side prior to the gym. Otherwise she is entering the accurate amount of carbs prior to the gym when her blood sugar is not on the lower side in the morning. She does note after the gym she tends to rise and will then enter the additional carbohydrates that she ate and did not cover prior to the gym. Glucose checks: CGM interpretation: (matches with meter mostly) Type: Dexcom G7 Duration: September 21, 2024-October 04, 2024 %time CGM is active: 90.9 % Average glucose 163 mg/dl GMI: 7.1% Variability 45 standard deviation, coefficient of variation 27.6% Times in range: Target 70-180 mg/dl: 68 % High 180-250 mg/dl: 27 % Very high >250 mg/dl: 5 % Low 55-70 mg/dl: 0% Very low <55 mg/dl: 0% Interpretation: Blood sugars more often are stable overnight. Significant meal spikes, pretty consistently at lunchtime--less so at breakfast and mixed response at dinnertime. Occasional hypoglycemia but not frequent and more often late night if occurs. -Hypoglycemia awareness: yes, BG threshold: 60, sometimes 80s Lab Results Component Value Date HGBA1C 8.6 (H) 04/19/2024 HGBA1C 8.1 (H) 01/12/2024 HGBA1C 8.3 (H) 08/25/2023 Wt Readings from Last 3 Encounters: 10/04/24 56.7 kg (125 lb) 09/06/24 58.1 kg (128 lb) 08/09/24 55.4 kg (122 lb 3.2 oz) Complications/comorbidities: -Retinopathy: no, last dilated eye exam: 12/2023 -Nephropathy: no Lab Results Component Value Date EGFR 87 01/12/2024 EGFR 79 12/16/2022 MICALBCREAT 6 01/12/2024 MICALBCREAT 13 12/16/2022 MICALBCREAT 6 11/19/2021 -Neuropathy: no, does not follow up with podiatry, no feet ulcers/wounds -Prior CV events: no Lab Results Component Value Date LDLCALC 69 01/12/2024 -Smoking status: current--had recently quit and just restarted Diabetes medications tried before/other possible contraindications for DM medications: None No renal impairment, alcoholism, CHF, decompensated liver disease, persistent nausea/vomiting, personal/family hx of medullary thyroid cancer, hx of pancreatitis, GB/biliary disease, recurrent UTI/groin fungal infections, postural hypotension, PVD or osteoporosis. No claudication. Completed DM education in 2023 CDE visit 05/17/24, addressed carb counting for insulin pump preparation DM ed visit 06/21/2024 and 07/19/24: RD visit Review of Systems: as per HPI Medical History: Past Medical History: Diagnosis Date Diabetes mellitus type 2 in nonobese (HCC) Surgical History: Past Surgical History: Procedure Laterality Date LAPAROSCOPY TONSILECTOMY, ADENOIDECTOMY, BILATERAL MYRINGOTOMY AND TUBES TUBAL LIGATION Family History: Family History Problem Relation Age of Onset Thyroid disease Mother Heart disease Mother Diabetes Brother Type 2 Heart disease Maternal Aunt Diabetes Maternal Uncle Diabetes Maternal Grandmother Diabetes Maternal Grandfather Social History: Social History Socioeconomic History Marital status: Number of children: 1 Highest education level: High school graduate Tobacco Use Smoking status: Every Day Current packs/day: 0.50 Average packs/day: 0.5 packs/day for 20.0 years (10.0 ttl pk-yrs) Types: Cigarettes Smokeless tobacco: Never Vaping Use Vaping status: Never Used Substance and Sexual Activity Alcohol use: Yes Comment: occasionally Drug use: Never Social Drivers of Health Financial Resource Strain: Medium Risk (05/17/2024) Overall Financial Resource Strain (CARDIA) Difficulty of Paying Living Expenses: Somewhat hard Food Insecurity: No Food Insecurity (05/17/2024) Hunger Vital Sign Worried About Running Out of Food in the Last Year: Never true Ran Out of Food in the Last Year: Never true Transportation Needs: No Transportation Needs (05/17/2024) PRAPARE - Transportation Lack of Transportation (Medical): No Lack of Transportation (Non-Medical): No Physical Activity: Inactive (05/17/2024) Exercise Vital Sign Days of Exercise per Week: 0 days Minutes of Exercise per Session: 0 min Stress: Stress Concern Present (05/17/2024) [place] [employer] - Occupational Stress Questionnaire Feeling of Stress : To some extent Social Connections: Socially Isolated (05/17/2024) Social Connection and Isolation Panel [NHANES] Frequency of Communication with Friends and Family: More than three times a week Frequency of Social Gatherings with Friends and Family: Once a week Attends Spiritism Services: Never Active Member of Clubs or Organizations: No Attends Club or Organization Meetings: Never Marital Status: Housing Stability: Low Risk (05/17/2024) Housing Stability Vital Sign Unable to Pay for Housing in the Last Year: No Number of Times Moved in the Last Year: 1 Homeless in the Last Year: No Allergies: Allergies Allergen Reactions Bactrim [Sulfamethoxazole-Trimethoprim] Unknown Cephalexin Unknown Penicillins Unknown Zoloft [Sertraline] Headache Epinephrine Palpitations Sulfa (Sulfonamide Antibiotics) Rash Current Medications: Current Outpatient Medications Medication Sig Dispense Refill alcohol swabs PadM Use to check blood sugar up to 4 times daily and as needed for low blood sugar. ICD10 code: E10.9 . 100 each 11 blood sugar diagnostic (glucose blood) strips Use to check blood sugar 2 times daily and as needed for low blood sugar. ICD10 code: E10.65 . 100 each 5 blood-glucose sensor (Dexcom G7 Sensor) Nabila Use as directed every 10 days . 3 each 11 glucagon 1 mg/0.2 mL AtIn Inject 0.2 mL (1 mg total) under the skin as needed (For severe hypoglycemia) . 0.4 mL 3 insulin lispro (AdmeLOG,HumaLOG) 100 unit/mL injection As directed via insulin pump up to 40 units daily . 40 mL 3 insulin assembler insulator cart,aut,G6/7,cntr (Omnipod 5 G6-G7 Intro Kt,Gen5,) Crtg Inject 1 each under the skin every 3 (three) days . 1 each 0 insulin pump cart,auto,BT,G6/7 (Omnipod 5 G6-G7 Pods, Gen 5,) Crtg Inject 1 each under the skin every 3 (three) days . 30 each 3 lancets Misc Use to check blood sugar 2 times daily and as needed for low blood sugar. ICD10 code: E10.65 . 100 each 5 pen needle, diabetic 31 gauge x 5/16 Ndle Use to inject insulin 4 times daily as instructed. . 200 each 11 rosuvastatin (CRESTOR) 5 MG tablet Take 1 (one) tablet (5 mg total) by mouth daily . 90 tablet 3 insulin glargine (Lantus Solostar U-100 Insulin) 100 unit/mL (3 mL) InPn Inject 9 units under the skin daily. . (Patient not taking: Reported on 10/04/2024) 15 mL 3 No current facility-administered medications for this visit. Physical Exam: Vitals: BP 118/73 (Patient Position: Sitting) Pulse 73 Wt 56.7 kg (125 lb) BMI 22.86 kg/m , Body mass index is 22.86 kg/m ., Wt Readings from Last 3 Encounters: 10/04/24 56.7 kg (125 lb) 09/06/24 58.1 kg (128 lb) 08/09/24 55.4 kg (122 lb 3.2 oz) General/Constitutional: , well-developed and in no distress Pulmonary/Chest: effort normal Musculoskeletal: nomal range of motion, normal muscle mass Neurological: alert and oriented Skin:warm and dry, no notable lipohypertrophy Psychiatric: appropriate affect Feet: Pedal pulses are not readily palpable, feet are warm with normal color. Nails are intact. Monofilament sensation intact bilateral. No lower extremity edema. Lab/Imaging Data: No results found for: WBC , HGB , HCT , MCV , PLT Lab Results Component Value Date GLUCOSE 142 (H) 01/12/2024 NA 136 01/12/2024 K 4.3 01/12/2024 CL 103 01/12/2024 BUN 15 01/12/2024 CREATININE 0.84 01/12/2024 Lab Results Component Value Date ALT 25 01/21/2022 AST 15 01/21/2022 ALKPHOS 63 01/21/2022 BILITOT 1.1 01/21/2022 Lab Results Component Value Date TSH 0.95 01/12/2024 THYROIDAB 1.2 01/21/2022 No results found for: PTH , CALCIUM , DAVIAN , PHOS Lab Results Component Value Date HGBA1C 8.6 (H) 04/19/2024 Lab Results Component Value Date LDLCALC 69 01/12/2024 CHOL 143 01/12/2024 HDL 59 01/12/2024 TRIG 73 01/12/2024 CHOLHDL 2.4 01/12/2024 Lab Results Component Value Date MICALBCREAT 6 01/12/2024 C-Peptide Date Value Ref Range Status 06/10/2022 0.36 (L) 0.90 - 5.00 ng/mL Final 11/19: ACR 6, glucose 173, c-peptide 0.85, TC 176, HDL 49, TG 137, LDL 100, TSH 0.92, [id number] 0.22 (high), IA-2 Ab 0.98 (high), ZnT8 and insulin Abs -ve 01/21/2022: LFTs normal, IgA normal, TTG-IgA negative, TPO-Ab normal 03/25/2022: glucose 226, c-peptide 1.16 (0.38) 06/10/2022: glucose 119, c-peptide 0.36 (0.12) 12/16/2022: glucose 156, GFR 79, TC 131, TG 64, HDL 68, LDL 50, ACR 13, TSH 0.79, A1c 7.3 01/12/2024: TSH 0.95, glucose 142, Na 136, K 4.3, cr 0.84, eGFR 87, TC 143, TG 73, HDL 59, LDL 69, A1c 8.1%, ACR 6 04/19/24: fructosamine 347 (~A1C 7.5%); albumin 4.5, A1c 8.6% 08/05/24: A1c 9.1% Assessment and plan: Ms. Painting is a 49 y.o. female with T1D/JODIE; Based on high T1D Abs and low c-peptide as above. HbA1c goal 7% At goal? No 08/05/24: A1c 9.1% Lab Results Component Value Date HGBA1C 8.6 (H) 04/19/2024 HGBA1C 8.1 (H) 01/12/2024 HGBA1C 8.3 (H) 08/25/2023 Assessment of glycemic status Patient started insulin pump August 31, 2024, she is using OmniPod and Dexcom G7. She notes that she feels better since starting the pump. Having meal spikes post lunch, more often doing well after breakfast. Response to dinner bolusing is mixed but more often doing okay. Infrequent hypoglycemia. She is sometimes entering less carbohydrates and consuming prior to the gym if her blood sugar upon awakening is in the low normal range. She may enter those grams of carbohydrates later post the gym if she notes her blood sugar is climbing after gym. Lows during exercise have resolved since making this adjustment. I had suggested using activity mode for the gym to prevent lows at last visit but patient notes her carb adjustment seems to do better for her. Recommended testing frequency Using CGM Changes recommended -Suggest to avoid entering carbohydrates if it is not the time of consumption and caution with altering the amount of carbohydrate entering into the pump from what actually consuming to avoid interference with the pump algorithm. -If blood sugar is elevated after the gym or climbing post exercise, suggest to take a correction bolus versus entering false carbohydrates. -Increase carbohydrate ratio at lunch, change ratio to 13. No other changes to settings Carbohydrate ratio: Midnight 15, 12 noon 13, 5 PM 15. -Insulin pump failure plan would be Lantus 12 units every 24 hours. Humalog injections prior to meals per carbohydrate ratio above and correction 1 unit for every 70 points over 120. Call if blood sugars often under 80 or over 250 prior to return visit. Patient notes she is comfortable with using the insulin pump, overall doing very well. Patient defers return visit until 3-months. She will call if she is having any issues in the meantime. Retinopathy Due for dilated exam no 11/2024--request have info sent here after going Nephropathy Next microalb due Next cr/eGFR due OSMAN inh/ARB indicated? no 12/2024-check prior to return visit 12/2024-check prior to return visit no Neuropathy Due for foot exam no 09/2025 Ordered EMIR since couldn't feel DP pulses at prior visit--WNL. CV risk/Lipids ACC 10 yr ASCVD risk Due for repeat lipid panel Statin indicated? started rosuvastatin 5 mg daily (moderate intensity) in 11/2021. I ordered repeat LFTs since bilirubin was mildly elevated in 09/2021 (but improving); came back normal in 12/2021. Statin is well tolerated. LDL 50 with TG 64 in 11/2022. LDL 69 with TG 73 in 01/2024. No muscle aches. Keep on same statin dose. And repeat lipids fasting prior to return visit Thyroid functions/other tests Lab Results Component Value Date TSH 0.95 01/12/2024 Repeat TFTs annually-check prior to return visit, advised to hold multivitamin or biotin supplement for 5 days prior to lab draw. TTG-Ab/IgA and TPO-Ab normal in 12/2021. Vaccines If not up to date, recommend annual flu vaccine, COVID vaccine, pneumococcal vaccine, HBV vaccine if (specially if <60 years), shingles vaccine >50 years, tetanus vaccine every 10 years, and HPV vaccine (<26 years). Return in about 3 months (around 01/04/2025). Electronically Signed by: Floresita Bob CNP 10/04/24 11:05 AM Endocrinology Orders Placed This Encounter Lipid Panel Hemoglobin A1c Microalbumin/Creatinine Ratio, UR Random TSH with Reflex Free T4 Chem 7 WI ARMORED VEHICLE OFFICER (MONITOR); EXTERNAL, FOR USE WITH NONDURABLE MEDICAL EQUIPMENT INTERSTITIAL CONTINUOUS GLUCOSE MONITORING SYSTEM (CGM) I am managing Janice Painting for complex chronic condition(s) serving as the focal point for the patient's care for consistency and continuity over time. documented in this encounter [facility] 10-04-2024 Note Reason for visit/chi ef complaint: TYPE 1 DIABETES W/O COMPLICATIONS Date: 10/04/2024 Referring Provider: No ref. provider found Primary Care Provider: Yoana Taylor CNP HPI: Ms. Painting is a 49 y.o. female with hx of an unremarkable PMH, tubal ligation. DM type: T1D/JODIE Duration/since: 10/07/2021 At time of diagnosis, patient was thin (was overweight a few months prior; BMI 28.3). She unintentionally lost about 30 lb over 2-3 months. She was diagnosed with DKA on 10/07/2021. Hx of autoimmune diseases: none Family hx of DM: brother T2DM, MGF ?type started insulin pump therapy on August 31, 2024 Current diabetes medications: OmniPod 5 with Dexcom [id number] settings: Midnight 0.45 4 AM 0.55 8 AM 0.5 Basal total 12 units Sensitivity: 70 Carb ratio: 15 Blood sugar target: 110 Correction threshold: 128 Active insulin time 3 hours Average total daily insulin over the past 2 weeks has been 20.8 units with 57% from basal or 12 units. She has been in auto mode 80% of the time. Exercises in am Wednesday through Wednesday Eg BF 5a, lunch 1p and dinner 6- 7p No recent steroid use. -She is not using activity mode for exercise, she did try this after last visit due to lows while working out. She has found it works better if she enters a few less carbs for breakfast if her blood sugar is on the low side prior to the gym. Otherwise she is entering the accurate amount of carbs prior to the gym when her blood sugar is not on the lower side in the morning. She does note after the gym she tends to rise and will then enter the additional carbohydrates that she ate and did not cover prior to the gym. Glucose checks: CGM interpretation: (matches with meter mostly) Type: Dexcom G7 Duration: September 21, 2024-October 04, 2024 %time CGM is active: 90.9 % Average glucose 163 mg/dl GMI: 7.1% Variability 45 standard deviation, coefficient of variation 27.6% Times in range: Target 70-180 mg/dl: 68 % High 180-250 mg/dl: 27 % Very high >250 mg/dl: 5 % Low 55-70 mg/dl: 0% Very low <55 mg/dl: 0% Interpretation: Blood sugars more often are stable overnight. Significant meal spikes, pretty consistently at lunchtime--less so at breakfast and mixed response at dinnertime. Occasional hypoglycemia but not frequent and more often late night if occurs. -Hypoglycemia awareness: yes, BG threshold: 60, sometimes 80s Lab Results Component Value Date HGBA1C 8.6 (H) 04/19/2024 HGBA1C 8.1 (H) 01/12/2024 HGBA1C 8.3 (H) 08/25/2023 Wt Readings from Last 3 Encounters: 10/04/24 56.7 kg (125 lb) 09/06/24 58.1 kg (128 lb) 08/09/24 55.4 kg (122 lb 3.2 oz) Complications/comorbidities: -Retinopathy: no, last dilated eye exam: 12/2023 -Nephropathy: no Lab Results Component Value Date EGFR 87 01/12/2024 EGFR 79 12/16/2022 MICALBCREAT 6 01/12/2024 MICALBCREAT 13 12/16/2022 MICALBCREAT 6 11/19/2021 -Neuropathy: no, does not follow up with podiatry, no feet ulcers/wounds -Prior CV events: no Lab Results Component Value Date LDLCALC 69 01/12/2024 -Smoking status: current--had recently quit and just restarted Diabetes medications tried before/other possible contraindications for DM medications: None No renal impairment, alcoholism, CHF, decompensated liver disease, persistent nausea/vomiting, personal/family hx of medullary thyroid cancer, hx of pancreatitis, GB/biliary disease, recurrent UTI/groin fungal infections, postural hypotension, PVD or osteoporosis. No claudication. Completed DM education in 2023 CDE visit 05/17/24, addressed carb counting for insulin pump preparation DM ed visit 06/21/2024 and 07/19/24: RD visit Review of Systems: as per HPI Medical History: Past Medical History: Diagnosis Date Diabetes mellitus type 2 in nonobese (HCC) Surgical History: Past Surgical History: Procedure Laterality Date LAPAROSCOPY TONSILECTOMY, ADENOIDECTOMY, BILATERAL MYRINGOTOMY AND TUBES TUBAL LIGATION Family History: Family History Problem Relation Age of Onset Thyroid disease Mother Heart disease Mother Diabetes Brother Type 2 Heart disease Maternal Aunt Diabetes Maternal Uncle Diabetes Maternal Grandmother Diabetes Maternal Grandfather Social History: Social History Socioeconomic History Marital status: Number of children: 1 Highest education level: High school graduate Tobacco Use Smoking status: Every Day Current packs/day: 0.50 Average packs/day: 0.5 packs/day for 20.0 years (10.0 ttl pk-yrs) Types: Cigarettes Smokeless tobacco: Never Vaping Use Vaping status: Never Used Substance and Sexual Activity Alcohol use: Yes Comment: occasionally Drug use: Never Social Drivers of Health Financial Resource Strain: Medium Risk (05/17/2024) Overall Financial Resource Strain (CARDIA) Difficulty of Paying Living Expenses: Somewhat hard Food Insecurity: No Food Insecurity (05/17/2024) Hunger Vital Sign Wor (more content not included)... [facility] 09-06-2024 Note Reason for visit/chi ef complaint: TYPE 1 DIABETES W/O COMPLICATIONS Date: 09/06/2024 Referring Provider: No ref. provider found Primary Care Provider: Yoana Taylor DRUG ABUSE TREATMENT SPECIALIST HPI: Ms. Painting is a 49 y.o. female with hx of an unremarkable PMH, tubal ligation. DM type: T1D/JODIE Duration/since: 10/07/2021 At time of diagnosis, patient was thin (was overweight a few months prior; BMI 28.3). She unintentionally lost about 30 lb over 2-3 months. She was diagnosed with DKA on 10/07/2021. Hx of autoimmune diseases: none Family hx of DM: brother T2DM, MGF ?type Completed DM education in [address] within the past year, carb counting addressed within this. Current diabetes medications: OmniPod 5 with Dexcom G7, started insulin pump therapy on August 31, 2024 Basal settings: Midnight 0.45 4 AM 0.55 8 AM 0.5 Basal total 12 units Sensitivity: 70 Carb ratio: 15 Blood sugar target: 110 Correction threshold: 128 Active insulin time 3 hours Patient has been in auto mode 86% of the time. Pump is delivering 16-22 units total daily insulin on average. Basal total most days is 10.5-12.5 units. Exercises in am Eg BF 5a, lunch 1p and dinner 7p No recent steroid use. Glucose checks: CGM interpretation: (matches with meter mostly Type: Dexcom G7 Duration: August 31-September 06, 2024 %time CGM is active: 88.4% Average glucose 144 mg/dl GMI: Not applicable % Variability 46 standard deviation, coefficient of variation 32 point % Times in range: Target 70-180 mg/dl: 77 % High 180-250 mg/dl: 19 % Very high >250 mg/dl: 3 % Low 55-70 mg/dl: 1 percent Very low <55 mg/dl: 0% Interpretation: Limited data as patient just recently started insulin pump. Overnights can be in the range, has had low 1 time and another night Remained elevated. May exercise in the morning early--has had highs or lows associated. Tried activity mode one day only. Meal pattern--more often high post meal and then may trend low by prior to next meal and occ drops soon after meal. -Hypoglycemia awareness: yes, BG threshold: 60, sometimes 80s Lab Results Component Value Date HGBA1C 8.6 (H) 04/19/2024 HGBA1C 8.1 (H) 01/12/2024 HGBA1C 8.3 (H) 08/25/2023 Wt Readings from Last 3 Encounters: 09/06/24 58.1 kg (128 lb) 08/09/24 55.4 kg (122 lb 3.2 oz) 05/10/24 53.4 kg (117 lb 11.2 oz) Complications/comorbidities: -Retinopathy: no, last dilated eye exam: 12/2023 -Nephropathy: no Lab Results Component Value Date EGFR 87 01/12/2024 EGFR 79 12/16/2022 MICALBCREAT 6 01/12/2024 MICALBCREAT 13 12/16/2022 MICALBCREAT 6 11/19/2021 -Neuropathy: no, does not follow up with podiatry, no feet ulcers/wounds -Prior CV events: no Lab Results Component Value Date LDLCALC 69 01/12/2024 -Smoking status: current--had recently quit and just restarted Diabetes medications tried before/other possible contraindications for DM medications: None No renal impairment, alcoholism, CHF, decompensated liver disease, persistent nausea/vomiting, personal/family hx of medullary thyroid cancer, hx of pancreatitis, GB/biliary disease, recurrent UTI/groin fungal infections, postural hypotension, PVD or osteoporosis. No claudication. Review of Systems: as per HPI Medical History: Past Medical History: Diagnosis Date Diabetes mellitus type 2 in nonobese (HCC) Surgical History: Past Surgical History: Procedure Laterality Date LAPAROSCOPY TONSILECTOMY, ADENOIDECTOMY, BILATERAL MYRINGOTOMY AND TUBES TUBAL LIGATION Family History: Family History Problem Relation Age of Onset Thyroid disease Mother Heart disease Mother Diabetes Brother Type 2 Heart disease Maternal Aunt Diabetes Maternal Uncle Diabetes Maternal Grandmother Diabetes Maternal Grandfather Social History: Social History Socioeconomic History Marital status: Number of children: 1 Highest education level: High school graduate Tobacco Use Smoking status: Every Day Current packs/day: 0.50 Average packs/day: 0.5 packs/day for 20.0 years (10.0 ttl pk-yrs) Types: Cigarettes Smokeless tobacco: Never Vaping Use Vaping status: Never Used Substance and Sexual Activity Alcohol use: Yes Comment: occasionally Drug use: Never Social Drivers of Health Financial Resource Strain: Medium Risk (05/17/2024) Overall Financial Resource Strain (CARDIA) Difficulty of Paying Living Expenses: Somewhat hard Food Insecurity: No Food Insecurity (05/17/2024) Hunger Vital Sign Worried About Running Out of Food in the Last Year: Never true Ran Out of Food in the Last Year: Never true Transportation Needs: No Transportation Needs (05/17/2024) PRAPARE - Transportation Lack of Transportation (Medical): No Lack of Transportation (Non-Medical): No Physical Activity: Inactive (05/17/2024) Exercise Vital Sign Days of Exercise per Week: 0 days Minutes of Exercise per Session: 0 min Stress: Stress Concern Present (more content not included)... [facility] 09-06-2024 History of Present illness Narrative Images from the original note were not included. Reason for visit/chief complaint: TYPE 1 DIABETES W/O COMPLICATIONS Date: 09/06/2024 Referring Provider: No ref. provider found Primary Care Provider: Yoana Taylor CNP HPI: Ms. Painting is a 49 y.o. female with hx of an unremarkable PMH, tubal ligation. DM type: T1D/JODIE Duration/since: 10/07/2021 At time of diagnosis, patient was thin (was overweight a few months prior; BMI 28.3). She unintentionally lost about 30 lb over 2-3 months. She was diagnosed with DKA on 10/07/2021. Hx of autoimmune diseases: none Family hx of DM: brother T2DM, MGF ?type Completed DM education in [address] within the past year, carb counting addressed within this. Current diabetes medications: OmniPod 5 with Dexcom G7, started insulin pump therapy on August 31, 2024 Basal settings: Midnight 0.45 4 AM 0.55 8 AM 0.5 Basal total 12 units Sensitivity: 70 Carb ratio: 15 Blood sugar target: 110 Correction threshold: 128 Active insulin time 3 hours Patient has been in auto mode 86% of the time. Pump is delivering 16-22 units total daily insulin on average. Basal total most days is 10.5-12.5 units. Exercises in am Eg BF 5a, lunch 1p and dinner 7p No recent steroid use. Glucose checks: CGM interpretation: (matches with meter mostly Type: Dexcom G7 Duration: August 31-September 06, 2024 %time CGM is active: 88.4% Average glucose 144 mg/dl GMI: Not applicable % Variability 46 standard deviation, coefficient of variation 32 point % Times in range: Target 70-180 mg/dl: 77 % High 180-250 mg/dl: 19 % Very high >250 mg/dl: 3 % Low 55-70 mg/dl: 1 percent Very low <55 mg/dl: 0% Interpretation: Limited data as patient just recently started insulin pump. Overnights can be in the range, has had low 1 time and another night Remained elevated. May exercise in the morning early--has had highs or lows associated. Tried activity mode one day only. Meal pattern--more often high post meal and then may trend low by prior to next meal and occ drops soon after meal. -Hypoglycemia awareness: yes, BG threshold: 60, sometimes 80s Lab Results Component Value Date HGBA1C 8.6 (H) 04/19/2024 HGBA1C 8.1 (H) 01/12/2024 HGBA1C 8.3 (H) 08/25/2023 Wt Readings from Last 3 Encounters: 09/06/24 58.1 kg (128 lb) 08/09/24 55.4 kg (122 lb 3.2 oz) 05/10/24 53.4 kg (117 lb 11.2 oz) Complications/comorbidities: -Retinopathy: no, last dilated eye exam: 12/2023 -Nephropathy: no Lab Results Component Value Date EGFR 87 01/12/2024 EGFR 79 12/16/2022 MICALBCREAT 6 01/12/2024 MICALBCREAT 13 12/16/2022 MICALBCREAT 6 11/19/2021 -Neuropathy: no, does not follow up with podiatry, no feet ulcers/wounds -Prior CV events: no Lab Results Component Value Date LDLCALC 69 01/12/2024 -Smoking status: current--had recently quit and just restarted Diabetes medications tried before/other possible contraindications for DM medications: None No renal impairment, alcoholism, CHF, decompensated liver disease, persistent nausea/vomiting, personal/family hx of medullary thyroid cancer, hx of pancreatitis, GB/biliary disease, recurrent UTI/groin fungal infections, postural hypotension, PVD or osteoporosis. No claudication. Review of Systems: as per HPI Medical History: Past Medical History: Diagnosis Date Diabetes mellitus type 2 in nonobese (HCC) Surgical History: Past Surgical History: Procedure Laterality Date LAPAROSCOPY TONSILECTOMY, ADENOIDECTOMY, BILATERAL MYRINGOTOMY AND TUBES TUBAL LIGATION Family History: Family History Problem Relation Age of Onset Thyroid disease Mother Heart disease Mother Diabetes Brother Type 2 Heart disease Maternal Aunt Diabetes Maternal Uncle Diabetes Maternal Grandmother Diabetes Maternal Grandfather Social History: Social History Socioeconomic History Marital status: Number of children: 1 Highest education level: High school graduate Tobacco Use Smoking status: Every Day Current packs/day: 0.50 Average packs/day: 0.5 packs/day for 20.0 years (10.0 ttl pk-yrs) Types: Cigarettes Smokeless tobacco: Never Vaping Use Vaping status: Never Used Substance and Sexual Activity Alcohol use: Yes Comment: occasionally Drug use: Never Social Drivers of Health Financial Resource Strain: Medium Risk (05/17/2024) Overall Financial Resource Strain (CARDIA) Difficulty of Paying Living Expenses: Somewhat hard Food Insecurity: No Food Insecurity (05/17/2024) Hunger Vital Sign Worried About Running Out of Food in the Last Year: Never true Ran Out of Food in the Last Year: Never true Transportation Needs: No Transportation Needs (05/17/2024) PRAPARE - Transportation Lack of Transportation (Medical): No Lack of Transportation (Non-Medical): No Physical Activity: Inactive (05/17/2024) Exercise Vital Sign Days of Exercise per Week: 0 days Minutes of Exercise per Session: 0 min Stress: Stress Concern Present (05/17/2024) [place] [facility] [employer] [facility] - Occupational Stress Questionnaire Feeling of Stress : To some extent Social Connections: Socially Isolated (05/17/2024) Social Connection and Isolation Panel [NHANES] Frequency of Communication with Friends and Family: More than three times a week Frequency of Social Gatherings with Friends and Family: Once a week Attends Spiritism Services: Never Active Member of Clubs or Organizations: No Attends Club or Organization Meetings: Never Marital Status: Housing Stability: Low Risk (05/17/2024) Housing Stability Vital Sign Unable to Pay for Housing in the Last Year: No Number of Times Moved in the Last Year: 1 Homeless in the Last Year: No Allergies: Allergies Allergen Reactions Bactrim [Sulfamethoxazole-Trimethoprim] Unknown Cephalexin Unknown Penicillins Unknown Zoloft [Sertraline] Headache Epinephrine Palpitations Sulfa (Sulfonamide Antibiotics) Rash Current Medications: Current Outpatient Medications Medication Sig Dispense Refill alcohol swabs PadM Use to check blood sugar up to 4 times daily and as needed for low blood sugar. ICD10 code: E10.9 . 100 each 11 blood sugar diagnostic (glucose blood) strips Use to check blood sugar 2 times daily and as needed for low blood sugar. ICD10 code: E10.65 . 100 each 5 blood-glucose sensor (Dexcom G7 Sensor) Nabila Use as directed every 10 days . 3 each 11 glucagon 1 mg/0.2 mL AtIn Inject 0.2 mL (1 mg total) under the skin as needed (For severe hypoglycemia) . 0.4 mL 3 insulin assembler insulator cart,aut,G6/7,cntr (Omnipod 5 G6-G7 Intro Kt,Gen5,) Crtg Inject 1 each under the skin every 3 (three) days . 1 each 0 lancets Misc Use to check blood sugar 2 times daily and as needed for low blood sugar. ICD10 code: E10.65 . 100 each 5 rosuvastatin (CRESTOR) 5 MG tablet Take 1 (one) tablet (5 mg total) by mouth daily . 90 tablet 3 insulin glargine (Lantus Solostar U-100 Insulin) 100 unit/mL (3 mL) InPn Inject 9 units under the skin daily. . (Patient not taking: Reported on 09/06/2024 .) 15 mL 3 insulin lispro (AdmeLOG,HumaLOG) 100 unit/mL injection As directed via insulin pump up to 40 units daily . 40 mL 3 insulin pump cart,auto,BT,G6/7 (Omnipod 5 G6-G7 Pods, Gen 5,) Crtg Inject 1 each under the skin every 3 (three) days . 30 each 3 pen needle, diabetic 31 gauge x 5/16 Ndle Use to inject insulin 4 times daily as instructed. . (Patient not taking: Reported on 09/06/2024 .) 200 each 11 No current facility-administered medications for this visit. Physical Exam: Vitals: BP 126/81 (Patient Position: Sitting) Pulse 98 Wt 58.1 kg (128 lb) BMI 23.41 kg/m , Body mass index is 23.41 kg/m ., Wt Readings from Last 3 Encounters: 09/06/24 58.1 kg (128 lb) 08/09/24 55.4 kg (122 lb 3.2 oz) 05/10/24 53.4 kg (117 lb 11.2 oz) General/Constitutional: , well-developed and in no distress Pulmonary/Chest: effort normal Musculoskeletal: nomal range of motion, normal muscle mass Neurological: alert and oriented Skin:warm and dry Psychiatric: appropriate affect Lab/Imaging Data: No results found for: WBC , HGB , HCT , MCV , PLT Lab Results Component Value Date GLUCOSE 142 (H) 01/12/2024 NA 136 01/12/2024 K 4.3 01/12/2024 CL 103 01/12/2024 BUN 15 01/12/2024 CREATININE 0.84 01/12/2024 Lab Results Component Value Date ALT 25 01/21/2022 AST 15 01/21/2022 ALKPHOS 63 01/21/2022 BILITOT 1.1 01/21/2022 Lab Results Component Value Date TSH 0.95 01/12/2024 THYROIDAB 1.2 01/21/2022 No results found for: PTH , CALCIUM , DAVIAN , PHOS Lab Results Component Value Date HGBA1C 8.6 (H) 04/19/2024 Lab Results Component Value Date LDLCALC 69 01/12/2024 CHOL 143 01/12/2024 HDL 59 01/12/2024 TRIG 73 01/12/2024 CHOLHDL 2.4 01/12/2024 Lab Results Component Value Date MICALBCREAT 6 01/12/2024 C-Peptide Date Value Ref Range Status 06/10/2022 0.36 (L) 0.90 - 5.00 ng/mL Final 11/19: ACR 6, glucose 173, c-peptide 0.85, TC 176, HDL 49, TG 137, LDL 100, TSH 0.92, XBL16-Hf 0.22 (high), IA-2 Ab 0.98 (high), ZnT8 and insulin Abs -ve 01/21/2022: LFTs normal, IgA normal, TTG-IgA negative, TPO-Ab normal 03/25/2022: glucose 226, c-peptide 1.16 (0.38) 06/10/2022: glucose 119, c-peptide 0.36 (0.12) 12/16/2022: glucose 156, GFR 79, TC 131, TG 64, HDL 68, LDL 50, ACR 13, TSH 0.79, A1c 7.3 01/12/2024: TSH 0.95, glucose 142, Na 136, K 4.3, cr 0.84, eGFR 87, TC 143, TG 73, HDL 59, LDL 69, A1c 8.1%, ACR 6 04/19/24: fructosamine 347 (~A1C 7.5%); albumin 4.5, A1c 8.6% 08/05/24: A1c 9.1% Assessment and plan: Ms. Painting is a 49 y.o. female with T1D/JODIE; Based on high T1D Abs and low c-peptide as above. HbA1c goal 7% At goal? No 08/05/24: A1c 9.1% Lab Results Component Value Date HGBA1C 8.6 (H) 04/19/2024 HGBA1C 8.1 (H) 01/12/2024 HGBA1C 8.3 (H) 08/25/2023 Assessment of glycemic status Patient started insulin pump August 31, 2024, she is using OmniPod and Dexcom G7. She notes that she feels better since starting the pump. Having meal spikes and some lows but insulin pump is still in the learning phase. Recommended testing frequency Using CGM Changes recommended -Will not make adjustments today, give it more time. Do suggest to use exercise mode when going to the gym and consider starting it 30 to 45 minutes prior to activity. Call if blood sugars often under 80 or over 250 prior to return visit. Retinopathy Due for dilated exam no 11/2024 Nephropathy Next microalb due Next cr/eGFR due OSMAN inh/ARB indicated? no 12/2024 no Neuropathy Due for foot exam no 10/2024 Ordered EMIR since couldn't feel DP pulses at prior visit--WNL. CV risk/Lipids ACC 10 yr ASCVD risk Due for repeat lipid panel Statin indicated? started rosuvastatin 5 mg daily (moderate intensity) in 11/2021. I ordered repeat LFTs since bilirubin was mildly elevated in 09/2021 (but improving); came back normal in 12/2021. Statin is well tolerated. LDL 50 with TG 64 in 11/2022. LDL 69 with TG 73 in 01/2024. No muscle aches. Keep on same statin dose. Thyroid functions/other tests Lab Results Component Value Date TSH 0.95 01/12/2024 Repeat TFTs annually TTG-Ab/IgA and TPO-Ab normal in 12/2021. Vaccines If not up to date, recommend annual flu vaccine, COVID vaccine, pneumococcal vaccine, HBV vaccine if (specially if <60 years), shingles vaccine >50 years, tetanus vaccine every 10 years, and HPV vaccine (<26 years). Return in about 4 weeks (around 10/04/2024). Electronically Signed by: Floresita Bob CNP 09/06/24 1:03 PM Endocrinology Orders Placed This Encounter insulin lispro (AdmeLOG,HumaLOG) 100 unit/mL injection insulin pump cart,auto,BT,G6/7 (Omnipod 5 G6-G7 Pods, Gen 5,) Crtg documented in this encounter [facility] 09-06-2024 Instructions Floresita Bob CNP - 09/06/2024 11:45 AM EST Call if BG often under 80 or over 250 prior to return visit. Basal rates MN 0.45 4am 0.55 8am 0.5 Total basal 12 units Sensitivity or correction 70 Carb ratio 15 BG target 110 BG correction threshold 120 If pump fails- lantus 12 units every 24 hours Bolus before meals and correction as per pump settings above Exercise mode maybe 30 min prior to activity documented in this encounter [facility] 08-18-2024 Note OmniPod 5 insulin pu mp orders provided to educator for upcoming planned pump initiation Settings advised based on average of current total daily dose and weight based calculation. Pump basals: 12 units total daily Midnight 0.45 4 AM 0.55 8 AM 0.5 Target glucose midnight: 110 Correct above midnight 120 Insulin to carbohydrate ratio 15 Sensitivity 70 Duration of insulin action 3 hours AUTHENTICATED BY FLORESITA BOB ON 08/18/2024 17:14:47 [facility] 08-18-2024 History of Present illness Narrative OmniPod 5 insulin pump orders provided to educator for upcoming planned pump initiation Settings advised based on average of current total daily dose and weight based calculation. Pump basals: 12 units total daily Midnight 0.45 4 AM 0.55 8 AM 0.5 Target glucose midnight: 110 Correct above midnight 120 Insulin to carbohydrate ratio 15 Sensitivity 70 Duration of insulin action 3 hours documented in this encounter [facility] 08-09-2024 Instructions Floresita Bob CNP - 08/09/2024 11:40 AM EST Increase the lantus to 11 units every evening Give it 5-7 days on the new regimen and then if the fastings/overnight reads continue to be above 130--you can increase the lantus by 1-2 units every 3-4 days until fastings within 90-130 most often. Change humalog or lispro to carb ratio Add grams of carb in meal, divide by the ratio to get your meal coverage dose. Then add the correction scale on top of the meal dose. Breakfast-ratio 1 unit of insulin for 9 grams of carb (divide carbs by 9) Lunch 1 unit for 12 grams (divide carbs by 12) Supper 1 unit for 7 grams of carb (divide carbs by 7) Continue the correction scale of 1 unit of insulin for every 60 points over 150 prior to meals. Call any problems or reads often under 80 or over 250 prior to return visit. documented in this encounter [facility] 08-09-2024 Note Reason for visit/chi ef complaint: TYPE 1 DIABETES W/O COMPLICATIONS Date: 08/09/2024 Referring Provider: No ref. provider found Primary Care Provider: Yoana Taylor CNP HPI: Ms. Painting is a 49 y.o. female with hx of an unremarkable PMH, tubal ligation. DM type: T1D/JODIE Duration/since: 10/07/2021 At time of diagnosis, patient was thin (was overweight a few months prior; BMI 28.3). She unintentionally lost about 30 lb over 2-3 months. She was diagnosed with DKA on 10/07/2021. Hx of autoimmune diseases: none Family hx of DM: brother T2DM, MGF ?type Completed DM education in [address] within the past year, carb counting addressed within this. Has omnipod and dexcom g7--ready to start Feels comfortable counting carbs, eg has 45 grams/meal Current diabetes medications: -Glargine 9 units daily at night -Lispro plus 1 additional unit for every 60 mg/dl above 150 mg/dl. Average total daily lispro--maybe 18 units total daily dose No snacking after dinner. Exercises in am Eg BF 5a, lunch 1p and dinner 7p No recent steroid use. Glucose checks: CGM interpretation: (matches with meter mostly, but sometimes there is a difference up to ~30 mg/dl, rarely low on sensor when not on meter) Type: Libre3 Duration: 07/27/24-08/09/24 %time CGM is active: 96% Average glucose 220 mg/dl GMI: 8.6% Variability 28.6% Times in range: Target 70-180 mg/dl: 30% High 180-250 mg/dl: 36% Very high >250 mg/dl: 34% Low 55-70 mg/dl: 0% Very low <55 mg/dl: 0% Interpretation: Blood sugars elevated overnight and fasting. Improve post BF and lunch and then climbing again by afternoon into evening and post dinner. No lows. -Hypoglycemia awareness: yes, BG threshold: 60, sometimes 80s Lab Results Component Value Date HGBA1C 8.6 (H) 04/19/2024 HGBA1C 8.1 (H) 01/12/2024 HGBA1C 8.3 (H) 08/25/2023 Wt Readings from Last 3 Encounters: 08/09/24 55.4 kg (122 lb 3.2 oz) 05/10/24 53.4 kg (117 lb 11.2 oz) 01/26/24 52.3 kg (115 lb 3.2 oz) Complications/comorbidities: -Retinopathy: no, last dilated eye exam: 12/2023 -Nephropathy: no Lab Results Component Value Date EGFR 87 01/12/2024 EGFR 79 12/16/2022 MICALBCREAT 6 01/12/2024 MICALBCREAT 13 12/16/2022 MICALBCREAT 6 11/19/2021 -Neuropathy: no, does not follow up with podiatry, no feet ulcers/wounds -Prior CV events: no Lab Results Component Value Date LDLCALC 69 01/12/2024 -Smoking status: current--had recently quit and just restarted Diabetes medications tried before/other possible contraindications for DM medications: None No renal impairment, alcoholism, CHF, decompensated liver disease, persistent nausea/vomiting, personal/family hx of medullary thyroid cancer, hx of pancreatitis, GB/biliary disease, recurrent UTI/groin fungal infections, postural hypotension, PVD or osteoporosis. No claudication. Review of Systems: as per HPI Medical History: Past Medical History: Diagnosis Date Diabetes mellitus type 2 in nonobese (HCC) Surgical History: Past Surgical History: Procedure Laterality Date LAPAROSCOPY TONSILECTOMY, ADENOIDECTOMY, BILATERAL MYRINGOTOMY AND TUBES TUBAL LIGATION Family History: Family History Problem Relation Age of Onset Thyroid disease Mother Heart disease Mother Diabetes Brother Type 2 Heart disease Maternal Aunt Diabetes Maternal Uncle Diabetes Maternal Grandmother Diabetes Maternal Grandfather Social History: Social History Socioeconomic History Marital status: Number of children: 1 Highest education level: High school graduate Tobacco Use Smoking status: Every Day Current packs/day: 0.50 Average packs/day: 0.5 packs/day for 20.0 years (10.0 ttl pk-yrs) Types: Cigarettes Smokeless tobacco: Never Vaping Use Vaping status: Never Used Substance and Sexual Activity Alcohol use: Yes Comment: occasionally Drug use: Never Social Drivers of Health Financial Resource Strain: Medium Risk (05/17/2024) Overall Financial Resource Strain (CARDIA) Difficulty of Paying Living Expenses: Somewhat hard Food Insecurity: No Food Insecurity (05/17/2024) Hunger Vital Sign Worried About Running Out of Food in the Last Year: Never true Ran Out of Food in the Last Year: Never true Transportation Needs: No Transportation Needs (05/17/2024) PRAPARE - Transportation Lack of Transportation (Medical): No Lack of Transportation (Non-Medical): No Physical Activity: Inactive (05/17/2024) Exercise Vital Sign Days of Exercise per Week: 0 days Minutes of Exercise per Session: 0 min Stress: Stress Concern Present (05/17/2024) [place] [facility] [employer] [facility] - Occupational Stress Questionnaire Feeling of Stress : To some extent Social Connections: Socially Isolated (05/17/2024) Social Connection and Isolation Panel [NHANES] Frequency of Communication with Friends and Family: More than three times a week Frequency of Social Gatheri (more content not included)... [facility] 08-09-2024 History of Present illness Narrative Images from the original note were not included. Reason for visit/chief complaint: TYPE 1 DIABETES W/O COMPLICATIONS Date: 08/09/2024 Referring Provider: No ref. provider found Primary Care Provider: Yoana Taylor DRUG ABUSE TREATMENT SPECIALIST HPI: Ms. Painting is a 49 y.o. female with hx of an unremarkable PMH, tubal ligation. DM type: T1D/JODIE Duration/since: 10/07/2021 At time of diagnosis, patient was thin (was overweight a few months prior; BMI 28.3). She unintentionally lost about 30 lb over 2-3 months. She was diagnosed with DKA on 10/07/2021. Hx of autoimmune diseases: none Family hx of DM: brother T2DM, MGF ?type Completed DM education in [address] within the past year, carb counting addressed within this. Has omnipod and dexcom g7--ready to start Feels comfortable counting carbs, eg has 45 grams/meal Current diabetes medications: -Glargine 9 units daily at night -Lispro plus 1 additional unit for every 60 mg/dl above 150 mg/dl. Average total daily lispro--maybe 18 units total daily dose No snacking after dinner. Exercises in am Eg BF 5a, lunch 1p and dinner 7p No recent steroid use. Glucose checks: CGM interpretation: (matches with meter mostly, but sometimes there is a difference up to ~30 mg/dl, rarely low on sensor when not on meter) Type: Libre3 Duration: 07/27/24-08/09/24 %time CGM is active: 96% Average glucose 220 mg/dl GMI: 8.6% Variability 28.6% Times in range: Target 70-180 mg/dl: 30% High 180-250 mg/dl: 36% Very high >250 mg/dl: 34% Low 55-70 mg/dl: 0% Very low <55 mg/dl: 0% Interpretation: Blood sugars elevated overnight and fasting. Improve post BF and lunch and then climbing again by afternoon into evening and post dinner. No lows. -Hypoglycemia awareness: yes, BG threshold: 60, sometimes 80s Lab Results Component Value Date HGBA1C 8.6 (H) 04/19/2024 HGBA1C 8.1 (H) 01/12/2024 HGBA1C 8.3 (H) 08/25/2023 Wt Readings from Last 3 Encounters: 08/09/24 55.4 kg (122 lb 3.2 oz) 05/10/24 53.4 kg (117 lb 11.2 oz) 01/26/24 52.3 kg (115 lb 3.2 oz) Complications/comorbidities: -Retinopathy: no, last dilated eye exam: 12/2023 -Nephropathy: no Lab Results Component Value Date EGFR 87 01/12/2024 EGFR 79 12/16/2022 MICALBCREAT 6 01/12/2024 MICALBCREAT 13 12/16/2022 MICALBCREAT 6 11/19/2021 -Neuropathy: no, does not follow up with podiatry, no feet ulcers/wounds -Prior CV events: no Lab Results Component Value Date LDLCALC 69 01/12/2024 -Smoking status: current--had recently quit and just restarted Diabetes medications tried before/other possible contraindications for DM medications: None No renal impairment, alcoholism, CHF, decompensated liver disease, persistent nausea/vomiting, personal/family hx of medullary thyroid cancer, hx of pancreatitis, GB/biliary disease, recurrent UTI/groin fungal infections, postural hypotension, PVD or osteoporosis. No claudication. Review of Systems: as per HPI Medical History: Past Medical History: Diagnosis Date Diabetes mellitus type 2 in nonobese (HCC) Surgical History: Past Surgical History: Procedure Laterality Date LAPAROSCOPY TONSILECTOMY, ADENOIDECTOMY, BILATERAL MYRINGOTOMY AND TUBES TUBAL LIGATION Family History: Family History Problem Relation Age of Onset Thyroid disease Mother Heart disease Mother Diabetes Brother Type 2 Heart disease Maternal Aunt Diabetes Maternal Uncle Diabetes Maternal Grandmother Diabetes Maternal Grandfather Social History: Social History Socioeconomic History Marital status: Number of children: 1 Highest education level: High school graduate Tobacco Use Smoking status: Every Day Current packs/day: 0.50 Average packs/day: 0.5 packs/day for 20.0 years (10.0 ttl pk-yrs) Types: Cigarettes Smokeless tobacco: Never Vaping Use Vaping status: Never Used Substance and Sexual Activity Alcohol use: Yes Comment: occasionally Drug use: Never Social Drivers of Health Financial Resource Strain: Medium Risk (05/17/2024) Overall Financial Resource Strain (CARDIA) Difficulty of Paying Living Expenses: Somewhat hard Food Insecurity: No Food Insecurity (05/17/2024) Hunger Vital Sign Worried About Running Out of Food in the Last Year: Never true Ran Out of Food in the Last Year: Never true Transportation Needs: No Transportation Needs (05/17/2024) PRAPARE - Transportation Lack of Transportation (Medical): No Lack of Transportation (Non-Medical): No Physical Activity: Inactive (05/17/2024) Exercise Vital Sign Days of Exercise per Week: 0 days Minutes of Exercise per Session: 0 min Stress: Stress Concern Present (05/17/2024) [place] [facility] [employer] [facility] - Occupational Stress Questionnaire Feeling of Stress : To some extent Social Connections: Socially Isolated (05/17/2024) Social Connection and Isolation Panel [NHANES] Frequency of Communication with Friends and Family: More than three times a week Frequency of Social Gatherings with Friends and Family: Once a week Attends Spiritism Services: Never Active Member of Clubs or Organizations: No Attends Club or Organization Meetings: Never Marital Status: Housing Stability: Low Risk (05/17/2024) Housing Stability Vital Sign Unable to Pay for Housing in the Last Year: No Number of Times Moved in the Last Year: 1 Homeless in the Last Year: No Allergies: Allergies Allergen Reactions Bactrim [Sulfamethoxazole-Trimethoprim] Unknown Cephalexin Unknown Penicillins Unknown Zoloft [Sertraline] Headache Epinephrine Palpitations Sulfa (Sulfonamide Antibiotics) Rash Current Medications: Current Outpatient Medications Medication Sig Dispense Refill alcohol swabs PadM Use to check blood sugar up to 4 times daily and as needed for low blood sugar. ICD10 code: E10.9 . 100 each 11 blood sugar diagnostic (glucose blood) strips Use to check blood sugar 2 times daily and as needed for low blood sugar. ICD10 code: E10.65 . 100 each 5 glucagon 1 mg/0.2 mL AtIn Inject 0.2 mL (1 mg total) under the skin as needed (For severe hypoglycemia) . 0.4 mL 3 insulin glargine (Lantus Solostar U-100 Insulin) 100 unit/mL (3 mL) InPn Inject 9 units under the skin daily. . 15 mL 3 insulin lispro (HumaLOG KwikPen Insulin) 100 unit/mL InPn Inject under the skin 3 times daily before meals as instructed. Maximum daily dose: 30 units. . 15 mL 11 lancets Misc Use to check blood sugar 2 times daily and as needed for low blood sugar. ICD10 code: E10.65 . 100 each 5 pen needle, diabetic 31 gauge x 5/16 Ndle Use to inject insulin 4 times daily as instructed. . 200 each 11 rosuvastatin (CRESTOR) 5 MG tablet Take 1 (one) tablet (5 mg total) by mouth daily . 90 tablet 3 blood-glucose sensor (Dexcom G7 Sensor) Nabila Use as directed every 10 days . (Patient not taking: Reported on 08/09/2024 .) 3 each 11 insulin assembler insulator cart,aut,G6/7,cntr (Omnipod 5 G6-G7 Intro Kt,Gen5,) Crtg Inject 1 each under the skin every 3 (three) days . (Patient not taking: Reported on 08/09/2024 .) 1 each 0 insulin pump cart,auto,BT,G6/7 (Omnipod 5 G6-G7 Pods, Gen 5,) Crtg Inject 1 each under the skin every 3 (three) days . (Patient not taking: Reported on 08/09/2024 .) 10 each 11 No current facility-administered medications for this visit. Physical Exam: Vitals: BP 130/83 (BP Location: Left arm, Patient Position: Sitting) Pulse 89 Wt 55.4 kg (122 lb 3.2 oz) BMI 22.35 kg/m , Body mass index is 22.35 kg/m ., Wt Readings from Last 3 Encounters: 08/09/24 55.4 kg (122 lb 3.2 oz) 05/10/24 53.4 kg (117 lb 11.2 oz) 01/26/24 52.3 kg (115 lb 3.2 oz) General/Constitutional: , well-developed and in no distress Pulmonary/Chest: effort normal Musculoskeletal: nomal range of motion, normal muscle mass Neurological: alert and oriented Skin: ? Lipohypertrophy angelita mid abd Psychiatric: appropriate affect Lab/Imaging Data: No results found for: WBC , HGB , HCT , MCV , PLT Lab Results Component Value Date GLUCOSE 142 (H) 01/12/2024 NA 136 01/12/2024 K 4.3 01/12/2024 CL 103 01/12/2024 BUN 15 01/12/2024 CREATININE 0.84 01/12/2024 Lab Results Component Value Date ALT 25 01/21/2022 AST 15 01/21/2022 ALKPHOS 63 01/21/2022 BILITOT 1.1 01/21/2022 Lab Results Component Value Date TSH 0.95 01/12/2024 THYROIDAB 1.2 01/21/2022 No results found for: PTH , CALCIUM , DAVIAN , PHOS Lab Results Component Value Date HGBA1C 8.6 (H) 04/19/2024 Lab Results Component Value Date LDLCALC 69 01/12/2024 CHOL 143 01/12/2024 HDL 59 01/12/2024 TRIG 73 01/12/2024 CHOLHDL 2.4 01/12/2024 Lab Results Component Value Date MICALBCREAT 6 01/12/2024 C-Peptide Date Value Ref Range Status 06/10/2022 0.36 (L) 0.90 - 5.00 ng/mL Final 11/19: ACR 6, glucose 173, c-peptide 0.85, TC 176, HDL 49, TG 137, LDL 100, TSH 0.92, NCU22-Yr 0.22 (high), IA-2 Ab 0.98 (high), ZnT8 and insulin Abs -ve 01/21/2022: LFTs normal, IgA normal, TTG-IgA negative, TPO-Ab normal 03/25/2022: glucose 226, c-peptide 1.16 (0.38) 06/10/2022: glucose 119, c-peptide 0.36 (0.12) 12/16/2022: glucose 156, GFR 79, TC 131, TG 64, HDL 68, LDL 50, ACR 13, TSH 0.79, A1c 7.3 01/12/2024: TSH 0.95, glucose 142, Na 136, K 4.3, cr 0.84, eGFR 87, TC 143, TG 73, HDL 59, LDL 69, A1c 8.1%, ACR 6 04/19/24: fructosamine 347 (~A1C 7.5%); albumin 4.5, A1c 8.6% 08/05/24: A1c 9.1% Assessment and plan: Ms. Painting is a 49 y.o. female with T1D/JODIE; Based on high T1D Abs and low c-peptide as above. HbA1c goal 7% At goal? No 08/05/24: A1c 9.1% Lab Results Component Value Date HGBA1C 8.6 (H) 04/19/2024 HGBA1C 8.1 (H) 01/12/2024 HGBA1C 8.3 (H) 08/25/2023 Assessment of glycemic status Numbers much higher than prior No lows High overnight, am; better mid day and climbing again late afternoon, pre dinner Recommended testing frequency Using alexander 3 Changes recommended -start humalog carb ratio, current dosing correlates to about ratios of 9/11.25/7.5 Will increase dinner coverage a bit as climbs post meal Ratios advised: BF 9, lunch 12, dinner 7 Plus 1:60 over 150 Increase lantus to 11 units, after 1 week if fastings still over 130 without lows -can increase lantus by 1-2 units every 2-3 days to target fasting 90-130. Patient has omnipod and dexcom G7, anxious to start. Requesting Lawanda contact her to initiate. Anticipated pump settings: MN 0.40 4am 0.5 8am 0.45 Total 10.8 units/day Carb ratios: MN 9; lunch 12, supper 8 Sensitivity 60 Retinopathy Due for dilated exam no 11/2024 Nephropathy Next microalb due Next cr/eGFR due OSMAN inh/ARB indicated? no 12/2024 no Neuropathy Due for foot exam no 10/2024 Ordered EMIR since couldn't feel DP pulses at prior visit--WNL. CV risk/Lipids ACC 10 yr ASCVD risk Due for repeat lipid panel Statin indicated? started rosuvastatin 5 mg daily (moderate intensity) in 11/2021. I ordered repeat LFTs since bilirubin was mildly elevated in 09/2021 (but improving); came back normal in 12/2021. Statin is well tolerated. LDL 50 with TG 64 in 11/2022. LDL 69 with TG 73 in 01/2024. No muscle aches. Keep on same statin dose. Thyroid functions/other tests Lab Results Component Value Date TSH 0.95 01/12/2024 Repeat TFTs annually TTG-Ab/IgA and TPO-Ab normal in 12/2021. Vaccines If not up to date, recommend annual flu vaccine, COVID vaccine, pneumococcal vaccine, HBV vaccine if (specially if <60 years), shingles vaccine >50 years, tetanus vaccine every 10 years, and HPV vaccine (<26 years). Return in about 4 weeks (around 09/06/2024). Electronically Signed by: Floresita Bob CNP 08/09/24 11:18 AM Endocrinology Orders Placed This Encounter insulin lispro (AdmeLOG,HumaLOG) 100 unit/mL injection documented in this encounter [facility] 06-28-2024 History of Present illness Narrative [facility] DIABETES SELF-MANAGEMENT EDUCATION AND SUPPORT PROGRAM Patient Name: Janice Painting Patient : 1975 Primary Care Provider: Floresita Bob CNP Referred By: Floresita Bob CNP Referral Diagnosis: Diabetes Type 1 Start Time: 0950 End Time: 1050 Behavior Goals: See Plan of Care Follow Up: Contact information provided for additional questions Unique needs: Hearing impairment requiring sign language: none Visual impairment requiring print augmentation: none Language barrier requiring interpreters: none Low literacy: none Transportation issues: none Barriers to program access: none Barriers w/ technology: none Insured/uninsured/lack of insurance coverage/financial barriers: none Past Medical History: Past Medical History: Diagnosis Date Diabetes mellitus type 2 in nonobese (HCC) Social History: Social History Socioeconomic History Marital status: Number of children: 1 Highest education level: High school graduate Tobacco Use Smoking status: Every Day Current packs/day: 0.50 Average packs/day: 0.5 packs/day for 20.0 years (10.0 ttl pk-yrs) Types: Cigarettes Smokeless tobacco: Never Vaping Use Vaping status: Never Used Substance and Sexual Activity Alcohol use: Yes Comment: occasionally Drug use: Never Social Drivers of Health Financial Resource Strain: Medium Risk (05/17/2024) Overall Financial Resource Strain (CARDIA) Difficulty of Paying Living Expenses: Somewhat hard Food Insecurity: No Food Insecurity (05/17/2024) Hunger Vital Sign Worried About Running Out of Food in the Last Year: Never true Ran Out of Food in the Last Year: Never true Transportation Needs: No Transportation Needs (05/17/2024) PRAPARE - Transportation Lack of Transportation (Medical): No Lack of Transportation (Non-Medical): No Physical Activity: Inactive (05/17/2024) Exercise Vital Sign Days of Exercise per Week: 0 days Minutes of Exercise per Session: 0 min Stress: Stress Concern Present (05/17/2024) [place] [facility] [employer] [facility] - Occupational Stress Questionnaire Feeling of Stress : To some extent Social Connections: Socially Isolated (05/17/2024) Social Connection and Isolation Panel [NHANES] Frequency of Communication with Friends and Family: More than three times a week Frequency of Social Gatherings with Friends and Family: Once a week Attends Spiritism Services: Never Active Member of Clubs or Organizations: No Attends Club or Organization Meetings: Never Marital Status: Housing Stability: Low Risk (05/17/2024) Housing Stability Vital Sign Unable to Pay for Housing in the Last Year: No Number of Times Moved in the Last Year: 1 Homeless in the Last Year: No History From: History obtained from chart review and the patient. Current/Pertinent Medications: Current Outpatient Medications Ordered in [facility] Medication Sig Dispense Refill alcohol swabs PadM Use to check blood sugar up to 4 times daily and as needed for low blood sugar. ICD10 code: E10.9 . 100 each 11 blood sugar diagnostic (glucose blood) strips Use to check blood sugar 2 times daily and as needed for low blood sugar. ICD10 code: E10.65 . 100 each 5 blood-glucose sensor (FreeStyle Alexander 3 Plus Sensor) Nabila Use as directed to check blood glucose . 6 each 3 glucagon 1 mg/0.2 mL AtIn Inject 0.2 mL (1 mg total) under the skin as needed (For severe hypoglycemia) . 0.4 mL 3 insulin glargine (Lantus Solostar U-100 Insulin) 100 unit/mL (3 mL) InPn Inject 9 units under the skin daily. . 15 mL 3 insulin lispro (HumaLOG KwikPen Insulin) 100 unit/mL InPn Inject under the skin 3 times daily before meals as instructed. Maximum daily dose: 30 units. . 15 mL 11 lancets Misc Use to check blood sugar 2 times daily and as needed for low blood sugar. ICD10 code: E10.65 . 100 each 5 pen needle, diabetic 31 gauge x 5/16 Ndle Use to inject insulin 4 times daily as instructed. . 200 each 11 rosuvastatin (CRESTOR) 5 MG tablet Take 1 (one) tablet (5 mg total) by mouth daily . 30 tablet 11 No current [facility]-ordered facility-administered medications on file. BGM Results: Pt has been using glucometer since she has been having trouble with insurance covering new sensors to go with insulin pump. Did not bring numbers in for appt. Morning blood sugars was 343. A1C: 8.6% Date: 04/19/24 Lab Results Component Value Date HGBA1C 8.6 (H) 04/19/2024 HGBA1C 8.1 (H) 01/12/2024 HGBA1C 8.3 (H) 08/25/2023 HGBA1C 7.6 (H) 04/21/2023 Lab Results Component Value Date CHOL 143 01/12/2024 CHOL 131 12/16/2022 Lab Results Component Value Date TRIG 73 01/12/2024 TRIG 64 12/16/2022 Lab Results Component Value Date HDL 59 01/12/2024 HDL 68 12/16/2022 No results found for: LDL Intervention/Education Provided: Pt presented for follow up consult for DSME. Pt reports she is doing better with her diet and getting exercise in. Pt stated she has been really stressed with getting insurance coverage for insulin pump and new sensors. Pt also shared this is the highest her blood sugars have ever been. Patient also stated her am blood sugars have been really high prior to going to the gym. Patient shared she goes to gym around 5am comes home to shower and then eats breakfast and takes her morning insulin. RN encouraged patient to try to get breakfast or a solid 30g min of carb protein snack in prior to the gym and take her insulin first thing in the morning instead of waiting until almost 8am. Pt was encouraged to try this and if blood sugars are not improved to talk to Mikel Bob CNP with [facility] for more assistance. RN also discussed in detail things can increase blood sugars minus food. This RN provided education on all the chronic complications that can occur with uncontrolled diabetes. Proper foot care and skin care were discussed along with complications for increased risk of heart attack and stroke were discussed. Education on ways to prevent peripheral vascular disease, maintaining healthy cholesterol levels, oral hygiene, diabetic retinopathy, neuropathy, factors in fluctuation of blood sugars, non alcoholic fatty liver disease (NAFLD), DKA, sick day management, kidney and eye care were also discussed in detail. Patient stated she has had no complications or side effects associated with her medication to date and was education on the the importance of continuing to take medications and keeping up to date on refills. Having a positive support system and finding healthy ways to deal with stress was mentioned along with warning signs to watch out for and when to call for help. Continuing to make SMART goals and working toward completing those goals was stressed. Finally, what to expect and future doctor appts and when certain labs need to be done was discussed along with preparing for emergencies and traveling with diabetes. Pt was provided with information on how to come back yearly healthy maintenance visits in the future if needed and has adaptive physical educator contact information. Foot Exam: see previous note Patient/Family Education: Learner: patient Readiness: action - ready to set action plan and implement Barriers to Learning: none Method: explanation and handout Response: verbalizes understanding Expected Adherence: good Education Plan: _X_Diabetes Pathophysiology X__Healthy Eating _X_Being Active _X_Taking Medications _X_Monitoring Glucose _X_Acute Complications _X_Chronic Complications _X_Lifestyle and Healthy Coping _X_Diabetes Distress and Support Education Record/Assessment: Ability to describe Diabetes Pathophysiology Select one: needs instruction needs review demonstrates competency not covered not applicable Ability to incorporate Healthy Eating into lifestyle Select one: needs instruction needs review demonstrates competency not covered not applicable Ability to incorporate Being Active into lifestyle Select one: needs instruction needs review demonstrates competency not covered not applicable Ability to Take Medications safely (if applicable) Select one: needs instruction needs review demonstrates competency not covered not applicable Ability to Monitor Glucose and other parameters, interpreting and using results Select one: needs instruction needs review demonstrates competency not covered not applicable Ability to prevent detect and treat Acute Complications Select one: needs instruction needs review demonstrates competency not covered not applicable Ability to prevent detect and treat Chronic Complications Select one: needs instruction needs review demonstrates competency not covered not applicable Ability adapt Lifestyle for Healthy Coping Select one: needs instruction needs review demonstrates competency not covered not applicable Ability to recognize Diabetes Distress and identify Support options Select one: needs instruction needs review demonstrates competency not covered not applicable Education Materials Provided: ADCES7 Self care Behaviors: Taking Medication (ADCES) Diabetes Your Take control Guide Medications (ADA) Factors Affecting Blood Glucose (ADA The Diabetes Advisor) Know the Warning Signs of a Heart Attack (Toolkit No. 22 ADA) All About Stroke (ADA Diabetes Advisor) All About Peripheral Arterial Disease (Toolkit No. 25 ADA) What is cholesterol? (AHA) Eye Exams for People with Diabetes (ADA Diabetes Advisor) Diabetes and Kidney Disease (ADA Diabetes Advisor) Preventing or Delaying Kidney Disease (ADA Diabetes Advisor) NAFLD (Healthwise) Skin Care and Infections (ADA Diabetes Advisor) Nerve Damage and Diabetes (ADA Diabetes Advisor) Diabetes and Oral Health (ADA Diabetes Advisor) Diabetes and Depression (ADA Diabetes Advisor) Diabetes Distress Dealing with the weight of diabetes (ADCES) Stress a little something for all of us (ADCES) Diabetes and Your emotional well being (ADA The Diabetes Advisor) Small steps for your health (ADA The Diabetes Advisor) Going for my Golas ADCES7 Self Care Behaviors Health Coping (ADCES) Have Diabetes, Will Travel (AADE) Patient Preparedness Plan (Diabetes Disaster Response) Getting The Very Best Care for Your Diabetes (Toolkit No. 17 ADA) AADE7 Self-Care Behaviors Reducing Risks (ADCES) What you need to know about Diabetes and Adult Vaccines (CDC) Managing Diabetes Safely During Sick Days (NOVOCare) DKA (ADCES) Business card This documentation has been sent to the referring healthcare provider. documented in this encounter [facility] 06-21-2024 History of Present illness Narrative Medical Nutrition Therapy Initial Visit Patient Name: Janice Painting Patient : 1975 Primary Care Provider: No primary care provider on file. Referred By: Floresita Bob CNP Referral Diagnosis: Diabetes Type 1 Start Time: 2:00 PM End Time: 2:47 PM Nutrition Diagnosis: Altered nutrition related lab values related to endocrine dysfunction as evidenced by A1c and BGM results Nutrition Goals: 1). I will start reading nutrition labels 2). I will follow the plate method to plan balanced meals Follow Up: Follow up appointment scheduled by patient- 07/19/24 at 1:15 PM Assessment: Pt present for management of T1DM. She was diagnosed with T1DM in September 2020. Did receive diabetes education when she was first diagnosed but admitted that she was not ready to receive education at that time. Pt now motivated to learn more about carb counting and plans to start using an insulin pump within the next few months. Diet recall indicated that pt is consuming 3 meals/day with an occasional snack. Pt has been trying to make healthier choices and is including protein, vegetables, fruits, milk and yogurt, and whole grains. Also trying to increase fiber intake. Primary support - family Cultural or Religous Dietary Needs - none Pertinent Food/Drug Interactions - Limit alcohol consumption while taking insulin due to risk for hypoglycemia Height: 62 Current Weight: 117# BMI: 21.53 kg/m2 BMI Classification: Normal (18.5-24.9) Weight History: weight has been stable Wt Readings from Last 5 Encounters: 05/10/24 53.4 kg (117 lb 11.2 oz) 01/26/24 52.3 kg (115 lb 3.2 oz) 11/03/23 54.9 kg (121 lb) 09/01/23 54 kg (119 lb) 04/28/23 52 kg (114 lb 11.2 oz) Past Medical History: Past Medical History: Diagnosis Date Diabetes mellitus type 2 in nonobese (HCC) History From: History obtained from patient and chart review. Current/Pertinent Medications & Supplements: Current Outpatient Medications Ordered in [facility] Medication Sig Dispense Refill alcohol swabs PadM Use to check blood sugar up to 4 times daily and as needed for low blood sugar. ICD10 code: E10.9 . 100 each 11 blood sugar diagnostic (glucose blood) strips Use to check blood sugar 2 times daily and as needed for low blood sugar. ICD10 code: E10.65 . 100 each 5 blood-glucose sensor (FreeStyle Alexander 3 Plus Sensor) Nabila Use as directed to check blood glucose . 6 each 3 glucagon 1 mg/0.2 mL AtIn Inject 0.2 mL (1 mg total) under the skin as needed (For severe hypoglycemia) . 0.4 mL 3 insulin glargine (Lantus Solostar U-100 Insulin) 100 unit/mL (3 mL) InPn Inject 9 units under the skin daily. . 15 mL 3 insulin lispro (HumaLOG KwikPen Insulin) 100 unit/mL InPn Inject under the skin 3 times daily before meals as instructed. Maximum daily dose: 30 units. . 15 mL 11 lancets Misc Use to check blood sugar 2 times daily and as needed for low blood sugar. ICD10 code: E10.65 . 100 each 5 pen needle, diabetic 31 gauge x 5/16 Ndle Use to inject insulin 4 times daily as instructed. . 200 each 11 rosuvastatin (CRESTOR) 5 MG tablet Take 1 (one) tablet (5 mg total) by mouth daily . 30 tablet 11 No current [facility]-ordered facility-administered medications on file. Pertinent Labs: BGM Results: checking 6-8 x/day; was previously using CGM but insurance not covering currently Fasting- 100's-200's; pt reported that BG results have been all over recently Lab Results Component Value Date HGBA1C 8.6 (H) 04/19/2024 HGBA1C 8.1 (H) 01/12/2024 HGBA1C 8.3 (H) 08/25/2023 HGBA1C 7.6 (H) 04/21/2023 Lab Results Component Value Date CHOL 143 01/12/2024 CHOL 131 12/16/2022 Lab Results Component Value Date TRIG 73 01/12/2024 TRIG 64 12/16/2022 Lab Results Component Value Date HDL 59 01/12/2024 HDL 68 12/16/2022 LDL- 69 (01/12/24) Nutrition Focused Physical Findings: Dentition: no problems noted GI/food intolerances: none Food Allergies: none Current Activity Level: Lightly Active and Moderately Active- going to the gym 3 days/week for 1.5 hours each day (10 minutes cardio and strength training) Diet History/Recall: Food Prep/Grocery Shopping - self Breakfast - 8-8:30 AM- whole wheat [place] muffin with peanut butter and blueberries; 3 eggs, whole wheat bread, yogurt Lunch - 1 PM- hamburger, carrots, cottage cheese and blueberries, boiled egg; chicken, vegetables, boiled egg; chicken, vegetables, apple Dinner - 7 PM- chicken, vegetables; casseroles with whole wheat noodles; steak, carrots, 1/2 sweet potato Snacks - occasionally- oatmeal energy bite Beverages - water; coffee with zero sugar creamer Meals Away From Home - special occasions Alcohol Use - up to 3 drinks occasionally Food Insecurity Screening: Within the past 12 months, we worried whether our food would run out before we got money to buy more [Multiple Answer] Never True [0.00] Within the past 12 months, the food we bought just didn't last and we didn't have the money to get more. [Multiple Answer] Never true [0.00] Intervention/Education Provided: Reviewed the plate method to promote a balance of macronutrients at meals and snacks. Discussed how carbs, protein, and fat affect blood sugars. Emphasized importance of consistent meals and snacks throughout the day to ensure consistent carbohydrate intake. Reviewed the benefits of physical activity. Discussed label reading tips. Estimated Nutritional Needs: Calorie Target: 1600 kcals/day (30 kcal/kg/day for weight maintenance) Protein Target: 120 g/day (30% of total kcals) Carb Target: 160 g/day (40% of total kcals) Fluid Target: 1600 mL/day (30 mL/kg/day) Patient/Family Education: Learner: patient Readiness: action - ready to set action plan and implement goals Barriers to Learning: none Method: explanation and handout Response: verbalizes understanding Expected Adherence: good Education Materials Provided: Healthy Meal Planning handout ([facility]), Goal Sheet, Reading a Nutrition Facts Label ([address]/[facility]), Pair Up Snack List, Easy Meal Ideas, Diabetes Food Hub Monitoring/Evaluation: Labs, BGM results, weight, food recall, meal planning, goal achievement, physical activity, medication management. Incorporating nutrition management into lifestyle. Describe effect of type, amount and timing of food on blood glucose; list 3 methods for planning meals. Select one: needs instruction needs review demonstrates competency not covered not applicable This documentation has been sent to the referring healthcare provider. LELE Ayala, JOHNN, LD Direct Patient Education Office documented in this encounter [facility] 06-20-2024 Telephone encounter Note Patient left message requesting that we reorder Freestyle Alexander CGM for her as her insurance will not cover Dexcom products. [facility] 06-20-2024 Miscellaneous Notes Patient left message requesting that we reorder Freestyle Alexander CGM for her as her insurance will not cover Dexcom products. documented in this encounter [facility] 05-10-2024 Instructions Floresita Bob CNP - 05/10/2024 10:44 AM EDT Try to take the humalog a little closer to the meal, 45 minutes pre BF vs 1 hour If you are much more active or eating a lower carb meal--reduce the humalog dose by 1 unit prior to the meal. Let me know after you have met with dietitian and are comfortable with carb counting, which pump you want and we can start the process. Hypoglycemia is a blood glucose (BG) of 70 mg/dl or less. Symptoms include feeling shaky, sweaty, heart racing, and dizziness, lightheadedness, feeling hungry or weak among others. Treatment: Rule of 15 15 grams of fast acting carbs ( 4 oz. fruit juice, regular soda, sweet tea) and recheck in 15 min on your glucometer (fingerstick glucose reading)*. Repeat the above treatment if needed until the BG is above 70 mg/dl per the glucometer/fingerstick reading. When BG is above 70 mg/dl, you can have a small snack with protein if your next meal is in more than an hour apart. *If you use a continuous glucose monitoring sensor: Do not rely on the sensor to determine if your glucose has responded to treatment. You need to use your glucometer (fingerstick glucose reading) to determine if the blood sugar has come up after treating a low blood sugar. It may take the sensor a little while to catch up and show that the blood sugar has come up. Relying on the sensor to show improvement in the blood sugar can lead to over-treatment and lead to your blood sugar being very high. documented in this encounter [facility] 05-10-2024 Note Reason for visit/chi ef complaint: TYPE 1 DIABETES W/O COMPLICATIONS Date: 05/10/2024 Referring Provider: No ref. provider found Primary Care Provider: Shaan Olivares PA-C HPI: Ms. Painting is a 49 y.o. female with hx of an unremarkable PMH, tubal ligation. DM type: T1D/JODIE Duration/since: 10/07/2021 At time of diagnosis, patient was thin (was overweight a few months prior; BMI 28.3). She unintentionally lost about 30 lb over 2-3 months. She was diagnosed with DKA on 10/07/2021. Hx of autoimmune diseases: none Family hx of DM: brother T2DM, MGF ?type Didn't meet with the dietitian b/t visits, did attend full DM education after diagnosis. Notes was overwhelmed at time. Current diabetes medications: -Glargine 9 units daily at night Humalog 5/4/6 units plus correction 1 unit for every 70 above 160 mg/dl. -Lispro (~60 minutes before BF, and 10 minutes before L/D); 5 (coffee/BF)/4/6 units, plus corrective scale of 1 additional unit for every 70 mg/dl above 160 mg/dl. No snacking after dinner. No recent steroid use. Glucose checks: CGM interpretation: (matches with meter mostly, but sometimes there is a difference up to ~30 mg/dl, rarely low on sensor when not on meter) Type: Libre3 Duration: 04/27/24-05/10/24 %time CGM is active: 97% Average glucose 186 mg/dl GMI: 7.8% Variability 29.8% Times in range: Target 70-180 mg/dl: 47% High 180-250 mg/dl: 39% Very high >250 mg/dl: 13% Low 55-70 mg/dl: 1% Very low <55 mg/dl: 0% Interpretation: Blood sugars can be climbing overnight, or sometimes hold steady. False low once overnight. Blood sugar does increase money counter, patient states this is upon awakening consistently. Blood sugar may correct quickly in the morning, likely attributed to taking her Humalog up to 1 hour prior to eating to compensate for the climb and blood sugar in the morning. Near lows post lunch some days, not others. First part of sensor often steady through evening and overnights. Meal spikes evident intermittently sometimes more significant than others. -Blood sugars were much better/more steady on the first week of the sensor--more steady, she was out of town and the most recent week of the sensor and notes eating was very atypical with more significant highs and lows (post meals due to eating much less b/c BG high coming into meal and taking normal insulin doses). -Hypoglycemia awareness: yes, BG threshold: 60, sometimes 80s Lab Results Component Value Date HGBA1C 8.6 (H) 04/19/2024 HGBA1C 8.1 (H) 01/12/2024 HGBA1C 8.3 (H) 08/25/2023 Wt Readings from Last 3 Encounters: 05/10/24 53.4 kg (117 lb 11.2 oz) 01/26/24 52.3 kg (115 lb 3.2 oz) 11/03/23 54.9 kg (121 lb) Complications/comorbidities: -Retinopathy: no, last dilated eye exam: 12/2023 -Nephropathy: no Lab Results Component Value Date EGFR 87 01/12/2024 EGFR 79 12/16/2022 MICALBCREAT 6 01/12/2024 MICALBCREAT 13 12/16/2022 MICALBCREAT 6 11/19/2021 -Neuropathy: no, does not follow up with podiatry, no feet ulcers/wounds -Prior CV events: no Lab Results Component Value Date LDLCALC 69 01/12/2024 -Smoking status: current Diabetes medications tried before/other possible contraindications for DM medications: None No renal impairment, alcoholism, CHF, decompensated liver disease, persistent nausea/vomiting, personal/family hx of medullary thyroid cancer, hx of pancreatitis, GB/biliary disease, recurrent UTI/groin fungal infections, postural hypotension, PVD or osteoporosis. No claudication. Review of Systems: as per HPI Medical History: Past Medical History: Diagnosis Date Diabetes mellitus type 2 in nonobese (HCC) Surgical History: Past Surgical History: Procedure Laterality Date LAPAROSCOPY TONSILECTOMY, ADENOIDECTOMY, BILATERAL MYRINGOTOMY AND TUBES Family History: Family History Problem Relation Age of Onset Thyroid disease Mother Heart disease Mother Diabetes Brother Type 2 Heart disease Maternal Aunt Diabetes Maternal Grandfather Social History: Social History Socioeconomic History Marital status: Single Tobacco Use Smoking status: Every Day Smokeless tobacco: Never Substance and Sexual Activity Alcohol use: Yes Comment: occasionally Drug use: Never Allergies: Allergies Allergen Reactions Bactrim [Sulfamethoxazole-Trimethoprim] Unknown Cephalexin Unknown Penicillins Unknown Zoloft [Sertraline] Headache Epinephrine Palpitations Sulfa (Sulfonamide Antibiotics) Rash Current Medications: Current Outpatient Medications Medication Sig Dispense Refill alcohol swabs PadM Use to check blood sugar up to 4 times daily and as needed for low blood sugar. ICD10 code: E10.9 . 100 each 11 blood sugar diagnostic (glucose blood) strips Use to check blood sugar 2 times daily and as needed for low blood sugar. ICD10 code: E10.65 . 100 each 5 blood-glucose sensor (FreeStyle Alexander 3 Sensor) Nabila Change every 14 days to c (more content not included)... [facility] 05-10-2024 History of Present illness Narrative Images from the original note were not included. Reason for visit/chief complaint: TYPE 1 DIABETES W/O COMPLICATIONS Date: 05/10/2024 Referring Provider: No ref. provider found Primary Care Provider: Shaan Olivares PA-C HPI: Ms. Painting is a 49 y.o. female with hx of an unremarkable PMH, tubal ligation. DM type: T1D/JODIE Duration/since: 10/07/2021 At time of diagnosis, patient was thin (was overweight a few months prior; BMI 28.3). She unintentionally lost about 30 lb over 2-3 months. She was diagnosed with DKA on 10/07/2021. Hx of autoimmune diseases: none Family hx of DM: brother T2DM, MGF ?type Didn't meet with the dietitian b/t visits, did attend full DM education after diagnosis. Notes was overwhelmed at time. Current diabetes medications: -Glargine 9 units daily at night Humalog 5/4/6 units plus correction 1 unit for every 70 above 160 mg/dl. -Lispro (~60 minutes before BF, and 10 minutes before L/D); 5 (coffee/BF)/4/6 units, plus corrective scale of 1 additional unit for every 70 mg/dl above 160 mg/dl. No snacking after dinner. No recent steroid use. Glucose checks: CGM interpretation: (matches with meter mostly, but sometimes there is a difference up to ~30 mg/dl, rarely low on sensor when not on meter) Type: Libre3 Duration: 04/27/24-05/10/24 %time CGM is active: 97% Average glucose 186 mg/dl GMI: 7.8% Variability 29.8% Times in range: Target 70-180 mg/dl: 47% High 180-250 mg/dl: 39% Very high >250 mg/dl: 13% Low 55-70 mg/dl: 1% Very low <55 mg/dl: 0% Interpretation: Blood sugars can be climbing overnight, or sometimes hold steady. False low once overnight. Blood sugar does increase money counter, patient states this is upon awakening consistently. Blood sugar may correct quickly in the morning, likely attributed to taking her Humalog up to 1 hour prior to eating to compensate for the climb and blood sugar in the morning. Near lows post lunch some days, not others. First part of sensor often steady through evening and overnights. Meal spikes evident intermittently sometimes more significant than others. -Blood sugars were much better/more steady on the first week of the sensor--more steady, she was out of town and the most recent week of the sensor and notes eating was very atypical with more significant highs and lows (post meals due to eating much less b/c BG high coming into meal and taking normal insulin doses). -Hypoglycemia awareness: yes, BG threshold: 60, sometimes 80s Lab Results Component Value Date HGBA1C 8.6 (H) 04/19/2024 HGBA1C 8.1 (H) 01/12/2024 HGBA1C 8.3 (H) 08/25/2023 Wt Readings from Last 3 Encounters: 05/10/24 53.4 kg (117 lb 11.2 oz) 01/26/24 52.3 kg (115 lb 3.2 oz) 11/03/23 54.9 kg (121 lb) Complications/comorbidities: -Retinopathy: no, last dilated eye exam: 12/2023 -Nephropathy: no Lab Results Component Value Date EGFR 87 01/12/2024 EGFR 79 12/16/2022 MICALBCREAT 6 01/12/2024 MICALBCREAT 13 12/16/2022 MICALBCREAT 6 11/19/2021 -Neuropathy: no, does not follow up with podiatry, no feet ulcers/wounds -Prior CV events: no Lab Results Component Value Date LDLCALC 69 01/12/2024 -Smoking status: current Diabetes medications tried before/other possible contraindications for DM medications: None No renal impairment, alcoholism, CHF, decompensated liver disease, persistent nausea/vomiting, personal/family hx of medullary thyroid cancer, hx of pancreatitis, GB/biliary disease, recurrent UTI/groin fungal infections, postural hypotension, PVD or osteoporosis. No claudication. Review of Systems: as per HPI Medical History: Past Medical History: Diagnosis Date Diabetes mellitus type 2 in nonobese (HCC) Surgical History: Past Surgical History: Procedure Laterality Date LAPAROSCOPY TONSILECTOMY, ADENOIDECTOMY, BILATERAL MYRINGOTOMY AND TUBES Family History: Family History Problem Relation Age of Onset Thyroid disease Mother Heart disease Mother Diabetes Brother Type 2 Heart disease Maternal Aunt Diabetes Maternal Grandfather Social History: Social History Socioeconomic History Marital status: Single Tobacco Use Smoking status: Every Day Smokeless tobacco: Never Substance and Sexual Activity Alcohol use: Yes Comment: occasionally Drug use: Never Allergies: Allergies Allergen Reactions Bactrim [Sulfamethoxazole-Trimethoprim] Unknown Cephalexin Unknown Penicillins Unknown Zoloft [Sertraline] Headache Epinephrine Palpitations Sulfa (Sulfonamide Antibiotics) Rash Current Medications: Current Outpatient Medications Medication Sig Dispense Refill alcohol swabs PadM Use to check blood sugar up to 4 times daily and as needed for low blood sugar. ICD10 code: E10.9 . 100 each 11 blood sugar diagnostic (glucose blood) strips Use to check blood sugar 2 times daily and as needed for low blood sugar. ICD10 code: E10.65 . 100 each 5 blood-glucose sensor (FreeStyle Alexander 3 Sensor) Nabila Change every 14 days to check blood sugar as instructed. . 2 each 11 insulin lispro (HumaLOG KwikPen Insulin) 100 unit/mL InPn Inject under the skin 3 times daily before meals as instructed. Maximum daily dose: 30 units. . 15 mL 11 lancets Misc Use to check blood sugar 2 times daily and as needed for low blood sugar. ICD10 code: E10.65 . 100 each 5 pen needle, diabetic 31 gauge x 5/16 Ndle Use to inject insulin 4 times daily as instructed. . 200 each 11 rosuvastatin (CRESTOR) 5 MG tablet Take 1 (one) tablet (5 mg total) by mouth daily . 30 tablet 11 glucagon 1 mg/0.2 mL AtIn Inject 0.2 mL (1 mg total) under the skin as needed (For severe hypoglycemia) . 0.4 mL 3 insulin glargine (Lantus Solostar U-100 Insulin) 100 unit/mL (3 mL) InPn Inject 9 units under the skin daily. . 15 mL 3 No current facility-administered medications for this visit. Physical Exam: Vitals: BP 128/81 Pulse 93 Wt 53.4 kg (117 lb 11.2 oz) BMI 21.53 kg/m , Body mass index is 21.53 kg/m ., Wt Readings from Last 3 Encounters: 05/10/24 53.4 kg (117 lb 11.2 oz) 01/26/24 52.3 kg (115 lb 3.2 oz) 11/03/23 54.9 kg (121 lb) General/Constitutional: , well-developed and in no distress Pulmonary/Chest: effort normal Musculoskeletal: nomal range of motion, normal muscle mass Neurological: alert and oriented Skin: ? Lipohypertrophy angelita mid abd Psychiatric: appropriate affect Lab/Imaging Data: No results found for: WBC , HGB , HCT , MCV , PLT Lab Results Component Value Date GLUCOSE 142 (H) 01/12/2024 NA 136 01/12/2024 K 4.3 01/12/2024 CL 103 01/12/2024 BUN 15 01/12/2024 CREATININE 0.84 01/12/2024 Lab Results Component Value Date ALT 25 01/21/2022 AST 15 01/21/2022 ALKPHOS 63 01/21/2022 BILITOT 1.1 01/21/2022 Lab Results Component Value Date TSH 0.95 01/12/2024 THYROIDAB 1.2 01/21/2022 No results found for: PTH , CALCIUM , DAVIAN , PHOS Lab Results Component Value Date HGBA1C 8.6 (H) 04/19/2024 Lab Results Component Value Date LDLCALC 69 01/12/2024 CHOL 143 01/12/2024 HDL 59 01/12/2024 TRIG 73 01/12/2024 CHOLHDL 2.4 01/12/2024 Lab Results Component Value Date MICALBCREAT 6 01/12/2024 C-Peptide Date Value Ref Range Status 06/10/2022 0.36 (L) 0.90 - 5.00 ng/mL Final 11/19: ACR 6, glucose 173, c-peptide 0.85, TC 176, HDL 49, TG 137, LDL 100, TSH 0.92, [id number] 0.22 (high), IA-2 Ab 0.98 (high), ZnT8 and insulin Abs -ve 01/21/2022: LFTs normal, IgA normal, TTG-IgA negative, TPO-Ab normal 03/25/2022: glucose 226, c-peptide 1.16 (0.38) 06/10/2022: glucose 119, c-peptide 0.36 (0.12) 12/16/2022: glucose 156, GFR 79, TC 131, TG 64, HDL 68, LDL 50, ACR 13, TSH 0.79, A1c 7.3 01/12/2024: TSH 0.95, glucose 142, Na 136, K 4.3, cr 0.84, eGFR 87, TC 143, TG 73, HDL 59, LDL 69, A1c 8.1%, ACR 6 04/19/24: fructosamine 347 (~A1C 7.5%); albumin 4.5, A1c 8.6% Assessment and plan: Ms. Painting is a 49 y.o. female with T1D/JODIE; Based on high T1D Abs and low c-peptide as above. HbA1c goal 7% At goal? No Lab Results Component Value Date HGBA1C 8.6 (H) 04/19/2024 HGBA1C 8.1 (H) 01/12/2024 HGBA1C 8.3 (H) 08/25/2023 Assessment of glycemic status Patient was out of town (was not eating typical for her) within the past week, her blood sugars were much more variable on the sensor during this time. -Otherwise the week prior her blood sugars are often relatively steady with intermittent meal spikes. We do see that sometimes when she takes the Humalog an hour before her breakfast and coffee, which she does due to consistent blood sugar climb upon arising in the morning, she may go low or near low after the dose. Intermittent near lows after lunch but not consistent. Infrequent hypoglycemia on a regular basis, she did have some lows while out of town attributed to diet --resulting in hyperglycemia at the following meal with subsequent less food at the next meal and took normal insulin dose--then low. Recommended testing frequency Using alexander 3 Changes recommended -Suggest to reduce her Humalog by 1 unit if she is eating less carbs are much more active prior to the meal. -Advised to try to take her breakfast Humalog more like 45 minutes before versus 1 hour prior. Typically meal insulin would be 0 to 15 minutes ahead. -Otherwise no change to insulin dosing. -Carbohydrate ratio would be ideal and I think she would benefit from an insulin pump. This would be the main way we would be able to control her rise in blood sugar upon awakening in the morning. -RD referral placed and referral to comprehensive diabetes education, patient has gone through the classes however she notes at the time she was overwhelmed and thinks it would be good to review. She has learned a lot more now she notes and feels she could better absorb the information. -New insulin injection sites advised -Glucagon Rx and instructions After you meet with the dietitian, we can start using a carbohydrate ratio. And can proceed with insulin pump provided you are comfortable with counting carbs. --Patient will review pump options and let us know which pump she wants to pursue after she meets with the dietitian as above and is comfortable with carb counting. Retinopathy Due for dilated exam no 11/2024 Nephropathy Next microalb due Next cr/eGFR due OSMAN inh/ARB indicated? no 12/2024 no Neuropathy Due for foot exam no 10/2024 Ordered EMIR since couldn't feel DP pulses at prior visit--WNL. CV risk/Lipids ACC 10 yr ASCVD risk Due for repeat lipid panel Statin indicated? started rosuvastatin 5 mg daily (moderate intensity) in 11/2021. I ordered repeat LFTs since bilirubin was mildly elevated in 09/2021 (but improving); came back normal in 12/2021. Statin is well tolerated. LDL 50 with TG 64 in 11/2022. LDL 69 with TG 73 in 01/2024. No muscle aches. Keep on same statin dose. Thyroid functions/other tests Lab Results Component Value Date TSH 0.95 01/12/2024 Repeat TFTs annually TTG-Ab/IgA and TPO-Ab normal in 12/2021. Vaccines If not up to date, recommend annual flu vaccine, COVID vaccine, pneumococcal vaccine, HBV vaccine if (specially if <60 years), shingles vaccine >50 years, tetanus vaccine every 10 years, and HPV vaccine (<26 years). Return in about 3 months (around 08/10/2024). Electronically Signed by: Floresita Bob CNP 05/11/24 10:49 AM Endocrinology Orders Placed This Encounter Hemoglobin A1c Ambulatory referral to Diabetic Education Ambulatory referral to Nutrition Services insulin glargine (Lantus Solostar U-100 Insulin) 100 unit/mL (3 mL) InPn glucagon 1 mg/0.2 mL AtIn documented in this encounter [facility] 04-26-2024 Evaluation + Plan note Diagnostic Tests PendingPAP w/ HPV and Genotype rflx 04/26/24 [facility] 04-26-2024 Note Patient Education Obstetrics and Gynecology Pap Test Why am I having this test? A Pap test, also called a Pap smear, is a screening test to check for signs of: ? Infection. ? Cancer of the cervix. The cervix is the lower part of the uterus that opens into the vagina. ? Changes that may be a sign that cancer is developing (precancerous changes). Women need this test on a regular basis. In general, you should have a Pap test every 3 years until you reach menopause or age 65. Women aged 30?60 may choose to have their Pap test done at the same time as an HPV (human papillomavirus) test every 5 years (instead of every 3 years). Your health care provider may recommend having Pap tests more or less often depending on your medical conditions and past Pap test results. What is being tested? Cervical cells are tested for signs of infection or abnormalities. What kind of sample is taken? Your health care provider will collect a sample of cells from the surface of your cervix. This will be done using a small cotton swab, plastic spatula, or brush that is inserted into your vagina using a tool called a speculum. This sample is often collected during a pelvic exam, when you are lying on your back on an exam table with your feet in footrests (stirrups). In some cases, fluids (secretions) from the cervix or vagina may also be collected. How do I prepare for this test? ? Be aware of where you are in your menstrual cycle. If you are menstruating on the day of the test, you may be asked to reschedule. ? You may need to reschedule if you have a known vaginal infection on the day of the test. ? Follow instructions from your health care provider about: ? Changing or stopping your regular medicines. Some medicines can cause abnormal test results, such as vaginal medicines and tetracycline. ? Avoiding douching 2?3 days before or the day of the test. Tell a health care provider about: ? Any allergies you have. ? All medicines you are taking, including vitamins, herbs, eye drops, creams, and hsts-uxe-zljkgib medicines. ? Any bleeding problems you have. ? Any surgeries you have had. ? Any medical conditions you have. ? Whether you are or may be . How are the results reported? Your test results will be reported as either abnormal or normal. What do the results mean? A normal test result means that you do not have signs of cancer of the cervix. An abnormal result may mean that you have: ? Cancer. A Pap test by itself is not enough to diagnose cancer. You will have more tests done if cancer is suspected. ? Precancerous changes in your cervix. ? Inflammation of the cervix. ? An STI (sexually transmitted infection). ? A fungal infection. ? A parasite infection. Talk with your health care provider about what your results mean. In some cases, your health care provider may do more testing to confirm the results. Questions to ask your health care provider Ask your health care provider, or the department that is doing the test: ? When will my results be ready? ? How will I get my results? ? What are my treatment options? ? What other tests do I need? ? What are my next steps? Summary ? In general, women should have a Pap test every 3 years until they reach menopause or age 65. ? Your health care provider will collect a sample of cells from the surface of your cervix. This will be done using a small cotton swab, plastic spatula, or brush. ? In some cases, fluids (secretions) from the cervix or vagina may also be collected. This information is not intended to replace advice given to you by your health care provider. Make sure you discuss any questions you have with your health care provider. Document Revised: 10/17/2021 Document Reviewed: 10/17/2021 [employer] Patient Education ? 2023 SEAT 4a. Cervical Biopsy A cervical biopsy is a procedure in which a small piece (sample) of tissue from the cervix is removed and tested for cancer cells. The cervix is the lowest part of the uterus, which opens into the vagina ( canal). You may also have this procedure: ? To check for growths that may become cancer. ? If the results of your Pap test were abnormal. ? If your health care provider saw changes during a pelvic exam. Tell a health care provider about: ? Any allergies you have. ? All medicines you are taking, including vitamins, herbs, eye drops, creams, and umwt-euz-ewnvdnf medicines. ? Any problems you or family members have had with anesthetic medicines. ? Any bleeding problems you have. ? Any surgeries you have had. ? Any medical conditions you have. ? Whether you are or may be . ? Whether you are having your menstrual period or will be having your period at the time of the procedure. What are the risks? Generally, this is a safe procedure. However, problems may occur, including: ? Infection. ? Ble (more content not included)... [facility] 01-26-2024 Instructions Kenneth Sparrow MD - 01/26/2024 11:18 AM EDT Keep on the Lantus 9 units at night. Keep on Humalog 5/4/6 units plus correction 1 unit for every 70 above 160 mg/dl. Consider increasing the lunch and dinner dose by 1 extra unit for higher carb meals. After you meet with the dietitian, we can consider dosing Humalog based on carbs. Try to check blood sugar using the regular meter at intervals to make sure sensor reads are reliable. Let me know how things will go and if you are getting frequent reads below 70 or above 200-250 mg/dl, or if low reads are >1%, in range numbers are <70%, or high reads more than 25%, or GMI >7-7.5%. documented in this encounter [facility] 01-26-2024 History of Present illness Narrative Images from the original note were not included. Reason for visit/chief complaint: TYPE 1 DIABETES W/O COMPLICATIONS Date: 01/26/2024 Referring Provider: No ref. provider found Primary Care Provider: Shaan Olivares PA-C HPI: Ms. Painting is a 48 y.o. female with hx of an unremarkable PMH, tubal ligation. DM type: T1D/JODIE Duration/since: 10/07/2021 At time of diagnosis, patient was thin (was overweight a few months prior; BMI 28.3). She unintentionally lost about 30 lb over 2-3 months. She was diagnosed with DKA on 10/07/2021. Hx of autoimmune diseases: none Family hx of DM: brother T2DM, MGF ?type Didn't meet with the dietitian; will call to schedule. Current diabetes medications: -Glargine 9 units daily at night -Lispro (~30-45 minutes before BF, and 10 minutes before L/D) 5 (coffee/BF)/4/6 units, plus corrective scale of 1 additional unit for every 70 mg/dl above 160 mg/dl. No snacking after dinner. No recent steroid use. Glucose checks: CGM interpretation: (matches with meter mostly, but sometimes there is a difference up to ~30 mg/dl, rarely low on sensor when not on meter) Type: Libre2 Duration: 01/12/2024 to 01/25/2024 %time CGM is active: 97% Average glucose 158 mg/dl GMI: 7.1% Variability 32.3% Times in range: Target 70-180 mg/dl: 68% High 180-250 mg/dl: 27% Very high >250 mg/dl: 4% Low 55-70 mg/dl: 1% Very low <55 mg/dl: 0% Interpretation: Glucoses are mostly within target with no significant hypoglycemia (1%), based on log reads, she seems to require higher dose sometimes for L and D. Over last 7 days, average glucose 145, TIR 80% with no lows Over last 90 days, average glucose 171, TIR 59% with 1% low -Hypoglycemia awareness: yes, BG threshold: 60 Lab Results Component Value Date HGBA1C 8.1 (H) 01/12/2024 HGBA1C 8.3 (H) 08/25/2023 HGBA1C 7.6 (H) 04/21/2023 Wt Readings from Last 3 Encounters: 01/26/24 52.3 kg (115 lb 3.2 oz) 11/03/23 54.9 kg (121 lb) 09/01/23 54 kg (119 lb) Complications/comorbidities: -Retinopathy: no, last dilated eye exam: 12/2023 -Nephropathy: no Lab Results Component Value Date EGFR 87 01/12/2024 EGFR 79 12/16/2022 MICALBCREAT 6 01/12/2024 MICALBCREAT 13 12/16/2022 MICALBCREAT 6 11/19/2021 -Neuropathy: no, does not follow up with podiatry, no feet ulcers/wounds -Prior CV events: no Lab Results Component Value Date LDLCALC 69 01/12/2024 -Smoking status: current Diabetes medications tried before/other possible contraindications for DM medications: None No renal impairment, alcoholism, CHF, decompensated liver disease, persistent nausea/vomiting, personal/family hx of medullary thyroid cancer, hx of pancreatitis, GB/biliary disease, recurrent UTI/groin fungal infections, postural hypotension, PVD or osteoporosis. No claudication. Review of Systems: as per HPI Medical History: Past Medical History: Diagnosis Date Diabetes mellitus type 2 in nonobese (HCC) Surgical History: Past Surgical History: Procedure Laterality Date LAPAROSCOPY TONSILECTOMY, ADENOIDECTOMY, BILATERAL MYRINGOTOMY AND TUBES Family History: Family History Problem Relation Age of Onset Thyroid disease Mother Heart disease Mother Diabetes Brother Type 2 Heart disease Maternal Aunt Diabetes Maternal Grandfather Social History: Social History Socioeconomic History Marital status: Single Tobacco Use Smoking status: Every Day Smokeless tobacco: Never Substance and Sexual Activity Alcohol use: Yes Comment: occasionally Drug use: Never Allergies: Allergies Allergen Reactions Bactrim [Sulfamethoxazole-Trimethoprim] Unknown Cephalexin Unknown Penicillins Unknown Zoloft [Sertraline] Headache Epinephrine Palpitations Sulfa (Sulfonamide Antibiotics) Rash Current Medications: Current Outpatient Medications Medication Sig Dispense Refill alcohol swabs PadM Use to check blood sugar 4 times daily and as needed for low blood sugar. ICD10 code: E10.9 . 200 each 11 blood sugar diagnostic (glucose blood) strips Use to check blood sugar 2 times daily and as needed for low blood sugar. ICD10 code: E10.65 . 100 each 5 flash glucose scanning reader (FreeStyle Alexander 2 [place]) Misc Use as directed for glucose monitoring Dg code E10.9 . 1 each 0 insulin glargine (Lantus Solostar U-100 Insulin) 100 unit/mL (3 mL) InPn Inject 9 units under the skin daily. . 15 mL 3 insulin lispro (HumaLOG KwikPen Insulin) 100 unit/mL InPn Inject under the skin 3 times daily before meals as instructed. Maximum daily dose: 30 units. . 15 mL 11 lancets Misc Use to check blood sugar 2 times daily and as needed for low blood sugar. ICD10 code: E10.65 . 100 each 5 pen needle, diabetic 31 gauge x 5/16 Ndle Use to inject insulin 4 times daily as instructed. . 200 each 11 blood-glucose sensor (FreeStyle Alexander 3 Sensor) Nabila Change every 14 days to check blood sugar as instructed. . 2 each 11 rosuvastatin (CRESTOR) 5 MG tablet Take 1 (one) tablet (5 mg total) by mouth daily . 30 tablet 11 No current facility-administered medications for this visit. Physical Exam: Vitals: BP 135/79 (BP Location: Right arm) Pulse 84 Wt 52.3 kg (115 lb 3.2 oz) SpO2 98% BMI 21.07 kg/m , Body mass index is 21.07 kg/m ., Wt Readings from Last 3 Encounters: 01/26/24 52.3 kg (115 lb 3.2 oz) 11/03/23 54.9 kg (121 lb) 09/01/23 54 kg (119 lb) General/Constitutional: , well-developed and in no distress Pulmonary/Chest: effort normal Musculoskeletal: nomal range of motion, normal muscle mass Neurological: alert and oriented Skin: no lipohypertrophy Feet: couldn't eel DP pulses, but good capillary refilling Psychiatric: appropriate affect Lab/Imaging Data: No results found for: WBC , HGB , HCT , MCV , PLT Lab Results Component Value Date GLUCOSE 142 (H) 01/12/2024 NA 136 01/12/2024 K 4.3 01/12/2024 CL 103 01/12/2024 BUN 15 01/12/2024 CREATININE 0.84 01/12/2024 Lab Results Component Value Date ALT 25 01/21/2022 AST 15 01/21/2022 ALKPHOS 63 01/21/2022 BILITOT 1.1 01/21/2022 Lab Results Component Value Date TSH 0.95 01/12/2024 THYROIDAB 1.2 01/21/2022 No results found for: PTH , CALCIUM , DAVIAN , PHOS Lab Results Component Value Date HGBA1C 8.1 (H) 01/12/2024 Lab Results Component Value Date LDLCALC 69 01/12/2024 CHOL 143 01/12/2024 HDL 59 01/12/2024 TRIG 73 01/12/2024 CHOLHDL 2.4 01/12/2024 Lab Results Component Value Date MICALBCREAT 6 01/12/2024 C-Peptide Date Value Ref Range Status 06/10/2022 0.36 (L) 0.90 - 5.00 ng/mL Final 11/19: ACR 6, glucose 173, c-peptide 0.85, TC 176, HDL 49, TG 137, LDL 100, TSH 0.92, WVD05-Co 0.22 (high), IA-2 Ab 0.98 (high), ZnT8 and insulin Abs -ve 01/21/2022: LFTs normal, IgA normal, TTG-IgA negative, TPO-Ab normal 03/25/2022: glucose 226, c-peptide 1.16 (0.38) 06/10/2022: glucose 119, c-peptide 0.36 (0.12) 12/16/2022: glucose 156, GFR 79, TC 131, TG 64, HDL 68, LDL 50, ACR 13, TSH 0.79, A1c 7.3 01/12/2024: TSH 0.95, glucose 142, Na 136, K 4.3, cr 0.84, eGFR 87, TC 143, TG 73, HDL 59, LDL 69, A1c 8.1%, ACR 6 Assessment and plan: Ms. Painting is a 48 y.o. female with T1D/JODIE; Based on high T1D Abs and low c-peptide as above. HbA1c goal 7% At goal? No Lab Results Component Value Date HGBA1C 8.1 (H) 01/12/2024 HGBA1C 8.3 (H) 08/25/2023 HGBA1C 7.6 (H) 04/21/2023 Assessment of glycemic status Glucoses are mostly within target with no significant hypoglycemia (1%), based on log reads, she seems to require higher dose sometimes for L and D. Over last 7 days, average glucose 145, TIR 80% with no lows Over last 90 days, average glucose 171, TIR 59% with 1% low A1c doesn't correlate with most recent CGM data, but closer to the 90 day data. Recommended testing frequency She uses Libre2 CGM, prescribed Alexander 3 Changes recommended -Keep on the Lantus 9 units at night. -Keep on Humalog 5//6 units plus correction 1 unit for every 70 above 160 mg/dl. -Consider increasing the lunch and dinner dose by 1 extra unit for higher carb meals. -Ordered fructosamine with A1c next time. After you meet with the dietitian, we can consider dosing Humalog based on carbs. She is interested in pump down the road. Retinopathy Due for dilated exam no 11/2024 Nephropathy Next microalb due Next cr/eGFR due OSMAN inh/ARB indicated? no 12/2024 no Neuropathy Due for foot exam no 10/2024 Ordered EMIR since I couldn't feel DP pulses CV risk/Lipids ACC 10 yr ASCVD risk Due for repeat lipid panel Statin indicated? started rosuvastatin 5 mg daily (moderate intensity) in 11/2021. I ordered repeat LFTs since bilirubin was mildly elevated in 09/2021 (but improving); came back normal in 12/2021. Statin is well tolerated. LDL 50 with TG 64 in 11/2022. LDL 69 with TG 73 in 01/2024. No muscle aches. Keep on same statin dose. Thyroid functions/other tests Lab Results Component Value Date TSH 0.95 01/12/2024 Repeat TFTs annually TTG-Ab/IgA and TPO-Ab normal in 12/2021. Vaccines If not up to date, recommend annual flu vaccine, COVID vaccine, pneumococcal vaccine, HBV vaccine if (specially if <60 years), shingles vaccine >50 years, tetanus vaccine every 10 years, and HPV vaccine (<26 years). Return in about 3 months (around 05/02/2024) for DM f/u. Kenneth Sparrow MD Endocrinology documented in this encounter [facility] 01-26-2024 Note Reason for visit/chi ef complaint: TYPE 1 DIABETES W/O COMPLICATIONS Date: 01/26/2024 Referring Provider: No ref. provider found Primary Care Provider: Shaan Olivares PA-C HPI: Ms. Painting is a 48 y.o. female with hx of an unremarkable PMH, tubal ligation. DM type: T1D/JODIE Duration/since: 10/07/2021 At time of diagnosis, patient was thin (was overweight a few months prior; BMI 28.3). She unintentionally lost about 30 lb over 2-3 months. She was diagnosed with DKA on 10/07/2021. Hx of autoimmune diseases: none Family hx of DM: brother T2DM, MGF ?type Didn't meet with the dietitian; will call to schedule. Current diabetes medications: -Glargine 9 units daily at night -Lispro (~30-45 minutes before BF, and 10 minutes before L/D) 5 (coffee/BF)/4/6 units, plus corrective scale of 1 additional unit for every 70 mg/dl above 160 mg/dl. No snacking after dinner. No recent steroid use. Glucose checks: CGM interpretation: (matches with meter mostly, but sometimes there is a difference up to ~30 mg/dl, rarely low on sensor when not on meter) Type: Libre2 Duration: 01/12/2024 to 01/25/2024 %time CGM is active: 97% Average glucose 158 mg/dl GMI: 7.1% Variability 32.3% Times in range: Target 70-180 mg/dl: 68% High 180-250 mg/dl: 27% Very high >250 mg/dl: 4% Low 55-70 mg/dl: 1% Very low <55 mg/dl: 0% Interpretation: Glucoses are mostly within target with no significant hypoglycemia (1%), based on log reads, she seems to require higher dose sometimes for L and D. Over last 7 days, average glucose 145, TIR 80% with no lows Over last 90 days, average glucose 171, TIR 59% with 1% low -Hypoglycemia awareness: yes, BG threshold: 60 Lab Results Component Value Date HGBA1C 8.1 (H) 01/12/2024 HGBA1C 8.3 (H) 08/25/2023 HGBA1C 7.6 (H) 04/21/2023 Wt Readings from Last 3 Encounters: 01/26/24 52.3 kg (115 lb 3.2 oz) 11/03/23 54.9 kg (121 lb) 09/01/23 54 kg (119 lb) Complications/comorbidities: -Retinopathy: no, last dilated eye exam: 12/2023 -Nephropathy: no Lab Results Component Value Date EGFR 87 01/12/2024 EGFR 79 12/16/2022 MICALBCREAT 6 01/12/2024 MICALBCREAT 13 12/16/2022 MICALBCREAT 6 11/19/2021 -Neuropathy: no, does not follow up with podiatry, no feet ulcers/wounds -Prior CV events: no Lab Results Component Value Date LDLCALC 69 01/12/2024 -Smoking status: current Diabetes medications tried before/other possible contraindications for DM medications: None No renal impairment, alcoholism, CHF, decompensated liver disease, persistent nausea/vomiting, personal/family hx of medullary thyroid cancer, hx of pancreatitis, GB/biliary disease, recurrent UTI/groin fungal infections, postural hypotension, PVD or osteoporosis. No claudication. Review of Systems: as per HPI Medical History: Past Medical History: Diagnosis Date Diabetes mellitus type 2 in nonobese (HCC) Surgical History: Past Surgical History: Procedure Laterality Date LAPAROSCOPY TONSILECTOMY, ADENOIDECTOMY, BILATERAL MYRINGOTOMY AND TUBES Family History: Family History Problem Relation Age of Onset Thyroid disease Mother Heart disease Mother Diabetes Brother Type 2 Heart disease Maternal Aunt Diabetes Maternal Grandfather Social History: Social History Socioeconomic History Marital status: Single Tobacco Use Smoking status: Every Day Smokeless tobacco: Never Substance and Sexual Activity Alcohol use: Yes Comment: occasionally Drug use: Never Allergies: Allergies Allergen Reactions Bactrim [Sulfamethoxazole-Trimethoprim] Unknown Cephalexin Unknown Penicillins Unknown Zoloft [Sertraline] Headache Epinephrine Palpitations Sulfa (Sulfonamide Antibiotics) Rash Current Medications: Current Outpatient Medications Medication Sig Dispense Refill alcohol swabs PadM Use to check blood sugar 4 times daily and as needed for low blood sugar. ICD10 code: E10.9 . 200 each 11 blood sugar diagnostic (glucose blood) strips Use to check blood sugar 2 times daily and as needed for low blood sugar. ICD10 code: E10.65 . 100 each 5 flash glucose scanning reader (FreeStyle Alexander 2 [place]) Misc Use as directed for glucose monitoring Dg code E10.9 . 1 each 0 insulin glargine (Lantus Solostar U-100 Insulin) 100 unit/mL (3 mL) InPn Inject 9 units under the skin daily. . 15 mL 3 insulin lispro (HumaLOG KwikPen Insulin) 100 unit/mL InPn Inject under the skin 3 times daily before meals as instructed. Maximum daily dose: 30 units. . 15 mL 11 lancets Misc Use to check blood sugar 2 times daily and as needed for low blood sugar. ICD10 code: E10.65 . 100 each 5 pen needle, diabetic 31 gauge x 5/16 Ndle Use to inject insulin 4 times daily as instructed. . 200 each 11 blood-glucose sensor (FreeStyle Alexander 3 Sensor) Nabila Change every 14 days to check blood sugar as instructed. . 2 each 11 rosuvastatin (CRESTOR) 5 MG tablet Take 1 (one) tablet (5 mg total) by m (more content not included)... [facility] 11-03-2023 Instructions Kenneth Sparrow MD - 11/03/2023 10:43 AM EDT Let's keep Lantus at 9 units at night. Adjust Humalog to 5/4/6 units plus plus corrective scale of 1 additional unit for every 70 mg/dl above 160 mg/dl. You may have lows with this increase in Humalog; if so, let me know, and we can cut back or consider the Humalog santi pens (increments of 0.5 unit). Let me know if getting frequent reads below 70 or above 200-250 mg/dl. Labs before next visit after 12 hr overnight fasting (water is fine). documented in this encounter [facility] 11-03-2023 History of Present illness Narrative Images from the original note were not included. Reason for visit/chief complaint: TYPE 1 DIABETES W/O COMPLICATIONS Date: 11/03/2023 Referring Provider: No ref. provider found Primary Care Provider: Shaan Olivares PA-C HPI: Ms. Painting is a 48 y.o. female with hx of an unremarkable PMH, tubal ligation. DM type: T1D/JODIE Duration/since: 10/07/2021 At time of diagnosis, patient was thin (was overweight a few months prior; BMI 28.3). She unintentionally lost about 30 lb over 2-3 months. She was diagnosed with DKA on 10/07/2021. Hx of autoimmune diseases: none Family hx of DM: brother T2DM, MGF ?type Current diabetes medications: -Glargine 9 units daily at night -Lispro (~30-45 minutes before eating) 5 (coffee/BF)/3/5 units, plus corrective scale of 1 additional unit for every 70 mg/dl above 160 mg/dl. No snacking after dinner. Glucose checks: CGM interpretation: (matches with meter, but sometimes sensor reads low while it's not on meter) Type: Libre2 Duration: 10/21/2023 to 11/03/2023 %time CGM is active: 93% Average glucose 176 mg/dl GMI: 7.5% Variability 30% Times in range: Target 70-180 mg/dl: 54% High 180-250 mg/dl: 38% Very high >250 mg/dl: 8% Low 55-70 mg/dl: 0% Very low <55 mg/dl: 0% Interpretation: Bgs overnight are mostly stable or a little trending down. Bgs seems to do well after breakfast, but fluctuate between stable/high after lunch, and more highs after dinner. No significant lows, but occasionally happens. -Hypoglycemia awareness: yes, BG threshold: 60 Lab Results Component Value Date HGBA1C 8.3 (H) 08/25/2023 HGBA1C 7.6 (H) 04/21/2023 HGBA1C 7.3 (H) 12/16/2022 Wt Readings from Last 3 Encounters: 09/01/23 54 kg (119 lb) 04/28/23 52 kg (114 lb 11.2 oz) 12/30/22 55.3 kg (122 lb) Complications/comorbidities: -Retinopathy: no, last dilated eye exam: 09/2022 -Nephropathy: no Lab Results Component Value Date EGFR 79 12/16/2022 MICALBCREAT 13 12/16/2022 MICALBCREAT 6 11/19/2021 -Neuropathy: no, does not follow up with podiatry, no feet ulcers/wounds -Prior CV events: no Lab Results Component Value Date LDLCALC 50 12/16/2022 -Smoking status: current Diabetes medications tried before/other possible contraindications for DM medications: None No renal impairment, alcoholism, CHF, decompensated liver disease, persistent nausea/vomiting, personal/family hx of medullary thyroid cancer, hx of pancreatitis, GB/biliary disease, recurrent UTI/groin fungal infections, postural hypotension, PVD or osteoporosis. No claudication. Review of Systems: as per HPI Medical History: No past medical history on file. Surgical History: Past Surgical History: Procedure Laterality Date LAPAROSCOPY TONSILECTOMY, ADENOIDECTOMY, BILATERAL MYRINGOTOMY AND TUBES Family History: Family History Problem Relation Age of Onset Thyroid disease Mother Heart disease Mother Diabetes Brother Type 2 Heart disease Maternal Aunt Diabetes Maternal Grandfather Social History: Social History Socioeconomic History Marital status: Single Tobacco Use Smoking status: Every Day Smokeless tobacco: Never Substance and Sexual Activity Alcohol use: Yes Comment: occasionally Drug use: Never Allergies: Allergies Allergen Reactions Bactrim [Sulfamethoxazole-Trimethoprim] Unknown Cephalexin Unknown Penicillins Unknown Zoloft [Sertraline] Headache Epinephrine Palpitations Sulfa (Sulfonamide Antibiotics) Rash Current Medications: Current Outpatient Medications Medication Sig Dispense Refill alcohol swabs PadM Use to check blood sugar 4 times daily and as needed for low blood sugar. ICD10 code: E10.9 . 200 each 11 blood sugar diagnostic (glucose blood) strips Use to check blood sugar 4 times daily and as needed for low blood sugar. ICD10 code: E10.9 . 200 each 11 flash glucose scanning reader (FreeStyle Alexander 2 [place]) Misc Use as directed for glucose monitoring Dg code E10.9 . 1 each 0 flash glucose sensor (FreeStyle Alexander 2 Sensor) Kit Use as directed every 14 days Dg code E10.9 . 2 kit 11 insulin glargine (Lantus Solostar U-100 Insulin) 100 unit/mL (3 mL) InPn Inject 9 units under the skin daily. . 15 mL 3 insulin lispro (HumaLOG KwikPen Insulin) 100 unit/mL InPn Inject under the skin 3 times daily before meals as instructed. Maximum daily dose: 30 units. . 15 mL 11 lancets Misc Use to check blood sugar 4 times daily and as needed for low blood sugar. ICD10 code: E10.9 . 200 each 11 pen needle, diabetic 31 gauge x 5/16 Ndle Use to inject insulin 4 times daily as instructed. . 200 each 11 rosuvastatin (CRESTOR) 5 MG tablet Take 1 (one) tablet (5 mg total) by mouth daily . 30 tablet 11 No current facility-administered medications for this visit. Physical Exam: Vitals: There were no vitals taken for this visit., There is no height or weight on file to calculate BMI., Wt Readings from Last 3 Encounters: 09/01/23 54 kg (119 lb) 04/28/23 52 kg (114 lb 11.2 oz) 12/30/22 55.3 kg (122 lb) General/Constitutional: , well-developed and in no distress. Pulmonary/Chest: effort normal Musculoskeletal: nomal range of motion, normal muscle mass Neurological: alert and oriented Skin: no lipohypertrophy Feet: no ulcers, could feel post tibial artery but not DP pulse, capillary refilling is fine Psychiatric: appropriate affect Lab/Imaging Data: No results found for: WBC , HGB , HCT , MCV , PLT Lab Results Component Value Date GLUCOSE 156 (H) 12/16/2022 NA 141 12/16/2022 K 4.4 12/16/2022 CL 110 (H) 12/16/2022 BUN 14 12/16/2022 CREATININE 0.91 12/16/2022 Lab Results Component Value Date ALT 25 01/21/2022 AST 15 01/21/2022 ALKPHOS 63 01/21/2022 BILITOT 1.1 01/21/2022 Lab Results Component Value Date TSH 0.79 12/16/2022 THYROIDAB 1.2 01/21/2022 No results found for: PTH , CALCIUM , DAVIAN , PHOS Lab Results Component Value Date HGBA1C 8.3 (H) 08/25/2023 Lab Results Component Value Date LDLCALC 50 12/16/2022 CHOL 131 12/16/2022 HDL 68 12/16/2022 TRIG 64 12/16/2022 CHOLHDL 1.9 12/16/2022 Lab Results Component Value Date MICALBCREAT 13 12/16/2022 C-Peptide Date Value Ref Range Status 06/10/2022 0.36 (L) 0.90 - 5.00 ng/mL Final 11/19: ACR 6, glucose 173, c-peptide 0.85, TC 176, HDL 49, TG 137, LDL 100, TSH 0.92, WYQ25-Wc 0.22 (high), IA-2 Ab 0.98 (high), ZnT8 and insulin Abs -ve 01/21/2022: LFTs normal, IgA normal, TTG-IgA negative, TPO-Ab normal 03/25/2022: glucose 226, c-peptide 1.16 (0.38) 06/10/2022: glucose 119, c-peptide 0.36 (0.12) 12/16/2022: glucose 156, GFR 79, TC 131, TG 64, HDL 68, LDL 50, ACR 13, TSH 0.79, A1c 7.3 Assessment and plan: Ms. Painting is a 48 y.o. female with T1D/JODIE; Based on high T1D Abs and low c-peptide as above. HbA1c goal 7% At goal? No Lab Results Component Value Date HGBA1C 8.3 (H) 08/25/2023 HGBA1C 7.6 (H) 04/21/2023 HGBA1C 7.3 (H) 12/16/2022 Assessment of glycemic status Bgs overnight are mostly stable or a little trending down. Bgs seems to do well after breakfast, but fluctuate between stable/high after lunch, and more highs after dinner. No significant lows, but occasionally happens. Recommended testing frequency She uses Libre2 CGM Changes recommended 0Let's keep Lantus at 9 units at night. 0Adjust Humalog to 5//6 units plus plus corrective scale of 1 additional unit for every 70 mg/dl above 160 mg/dl. You may have lows with this increase in Humalog; if so, let me know, and we can cut back or consider the Humalog santi pens (increments of 0.5 unit). -Referred to dietitian for carb counting. She is interested in pump down the road. Retinopathy Due for dilated exam no 10/2023, she will make an appointment Nephropathy Next microalb due Next cr/eGFR due OSMAN inh/ARB indicated? no 12/2023; repeat before next visit 12/2023; repeat before next visit no Neuropathy Due for foot exam no 10/2024 CV risk/Lipids ACC 10 yr ASCVD risk Due for repeat lipid panel Statin indicated? started rosuvastatin 5 mg daily (moderate intensity) in 11/2021. I ordered repeat LFTs since bilirubin was mildly elevated in 09/2021 (but improving); came back normal in 12/2021. Statin is well tolerated. LDL is good at 50 with TG 64 in 11/2022. Repeat lipids before next visit. Thyroid functions/other tests Lab Results Component Value Date TSH 0.79 12/16/2022 Repeat TFTs annually; repeat before next visit. TTG-Ab/IgA and TPO-Ab normal in 12/2021. Vaccines If not up to date, recommend annual flu vaccine, COVID vaccine, pneumococcal vaccine, HBV vaccine if (specially if <60 years), shingles vaccine >50 years, tetanus vaccine every 10 years, and HPV vaccine (<26 years). No follow-ups on file. Time spent reviewing chart, during the encounter, putting orders and coordinating care on the encounter day is 30 minutes. Kenneth Sparrow MD Endocrinology I am managing Janice Painting for complex chronic condition(s) serving as the focal point for the patient's care for consistency and continuity over time. documented in this encounter [facility] 09-01-2023 Instructions Kenneth Sparrow MD - 09/01/2023 1:33 PM EST Let's keep Lantus at 9 units at night. Adjust Humalog to 5/3/5 units, plus corrective scale of 1 additional unit for every 70 mg/dl above 160 mg/dl. 5 units before morning coffee/BF together Try to keep a log of your reads and insulin doses administered. Contact us if your blood sugar is getting below 70, or above 200-250 mg/dl frequently, or if you have any concerns. documented in this encounter [facility] 09-01-2023 History of Present illness Narrative Images from the original note were not included. Reason for visit/chief complaint: TYPE 1 DIABETES W/O COMPLICATIONS Date: 09/01/2023 Referring Provider: No ref. provider found Primary Care Provider: Shaan Olivares PA-C HPI: Ms. Painting is a 48 y.o. female with hx of an unremarkable PMH, tubal ligation. DM type: T1D/JODIE Duration/since: 10/07/2021 At time of diagnosis, patient was thin (was overweight a few months prior; BMI 28.3). She unintentionally lost about 30 lb over 2-3 months. She was diagnosed with DKA on 10/07/2021. Hx of autoimmune diseases: none Family hx of DM: brother T2DM, MGF ?type Current diabetes medications: -Glargine 9 units daily at night -Lispro 4 units before meals, plus corrective scale of 1 unit for every 50 mg/dl above 180 mg/dl (~10 minutes before eating) Glucose checks: CGM interpretation: (matches with meter) Type: Libre2 Duration: 08/19/2023 to 09/01/2023 %time CGM is active: 93% Average glucose 183 mg/dl GMI: 7.7% Variability 27.9% Times in range: Target 70-180 mg/dl: 51% High 180-250 mg/dl: 38% Very high >250 mg/dl: 11% Low 55-70 mg/dl: 0% Very low <55 mg/dl: 0% Interpretation: Bgs tend to increase in am around time of waking up/coffee/BF, then relatively improve in afternoon, then increase again in evening after dinner. Overnight Bgs are mostly stable/trending a bit downwards. No significant hypoglycemia (only occasionally). -Hypoglycemia awareness: yes, BG threshold: 60 Lab Results Component Value Date HGBA1C 8.3 (H) 08/25/2023 HGBA1C 7.6 (H) 04/21/2023 HGBA1C 7.3 (H) 12/16/2022 Wt Readings from Last 3 Encounters: 09/01/23 54 kg (119 lb) 04/28/23 52 kg (114 lb 11.2 oz) 12/30/22 55.3 kg (122 lb) Complications/comorbidities: -Retinopathy: no, last dilated eye exam: 09/2022 -Nephropathy: no Lab Results Component Value Date EGFR 79 12/16/2022 MICALBCREAT 13 12/16/2022 MICALBCREAT 6 11/19/2021 -Neuropathy: no, does not follow up with podiatry, no feet ulcers/wounds -Prior CV events: no Lab Results Component Value Date LDLCALC 50 12/16/2022 -Smoking status: current Diabetes medications tried before/other possible contraindications for DM medications: None No renal impairment, alcoholism, CHF, decompensated liver disease, persistent nausea/vomiting, personal/family hx of medullary thyroid cancer, hx of pancreatitis, GB/biliary disease, recurrent UTI/groin fungal infections, postural hypotension, PVD or osteoporosis. No claudication. Review of Systems: as per HPI Medical History: History reviewed. No pertinent past medical history. Surgical History: Past Surgical History: Procedure Laterality Date LAPAROSCOPY TONSILECTOMY, ADENOIDECTOMY, BILATERAL MYRINGOTOMY AND TUBES Family History: Family History Problem Relation Age of Onset Thyroid disease Mother Heart disease Mother Diabetes Brother Type 2 Heart disease Maternal Aunt Diabetes Maternal Grandfather Social History: Social History Socioeconomic History Marital status: Single Tobacco Use Smoking status: Every Day Smokeless tobacco: Never Substance and Sexual Activity Alcohol use: Yes Comment: occasionally Drug use: Never Allergies: Allergies Allergen Reactions Bactrim [Sulfamethoxazole-Trimethoprim] Unknown Cephalexin Unknown Penicillins Unknown Zoloft [Sertraline] Headache Epinephrine Palpitations Sulfa (Sulfonamide Antibiotics) Rash Current Medications: Current Outpatient Medications Medication Sig Dispense Refill alcohol swabs PadM Use to check blood sugar 4 times daily and as needed for low blood sugar. ICD10 code: E10.9 . 200 each 11 blood sugar diagnostic (glucose blood) strips Use to check blood sugar 4 times daily and as needed for low blood sugar. ICD10 code: E10.9 . 200 each 11 flash glucose scanning reader (FreeStyle Alexander 2 [place]) Misc Use as directed for glucose monitoring Dg code E10.9 . 1 each 0 flash glucose sensor (FreeStyle Alexander 2 Sensor) Kit Use as directed every 14 days Dg code E10.9 . 2 kit 11 insulin glargine (Lantus Solostar U-100 Insulin) 100 unit/mL (3 mL) InPn Inject 9 units under the skin daily. . 15 mL 3 insulin lispro (HumaLOG KwikPen Insulin) 100 unit/mL InPn Inject under the skin 3 times daily before meals as instructed. Maximum daily dose: 30 units. . 15 mL 11 lancets Misc Use to check blood sugar 4 times daily and as needed for low blood sugar. ICD10 code: E10.9 . 200 each 11 pen needle, diabetic 31 gauge x 5/16 Ndle Use to inject insulin 4 times daily as instructed. . 200 each 11 rosuvastatin (CRESTOR) 5 MG tablet Take 1 (one) tablet (5 mg total) by mouth daily . 30 tablet 11 No current facility-administered medications for this visit. Physical Exam: Vitals: BP 120/76 (BP Location: Right arm, Patient Position: Sitting, BP Cuff Size: Adult) Pulse 76 Ht 5' 2 Wt 54 kg (119 lb) BMI 21.77 kg/m , Body mass index is 21.77 kg/m ., Wt Readings from Last 3 Encounters: 09/01/23 54 kg (119 lb) 04/28/23 52 kg (114 lb 11.2 oz) 12/30/22 55.3 kg (122 lb) General/Constitutional: , well-developed and in no distress. Pulmonary/Chest: effort normal Musculoskeletal: nomal range of motion, normal muscle mass Neurological: alert and oriented Skin: no lipohypertrophy Psychiatric: appropriate affect Lab/Imaging Data: No results found for: WBC , HGB , HCT , MCV , PLT Lab Results Component Value Date GLUCOSE 156 (H) 12/16/2022 NA 141 12/16/2022 K 4.4 12/16/2022 CL 110 (H) 12/16/2022 BUN 14 12/16/2022 CREATININE 0.91 12/16/2022 Lab Results Component Value Date ALT 25 01/21/2022 AST 15 01/21/2022 ALKPHOS 63 01/21/2022 BILITOT 1.1 01/21/2022 Lab Results Component Value Date TSH 0.79 12/16/2022 THYROIDAB 1.2 01/21/2022 No results found for: PTH , CALCIUM , DAVIAN , PHOS Lab Results Component Value Date HGBA1C 8.3 (H) 08/25/2023 Lab Results Component Value Date LDLCALC 50 12/16/2022 CHOL 131 12/16/2022 HDL 68 12/16/2022 TRIG 64 12/16/2022 CHOLHDL 1.9 12/16/2022 Lab Results Component Value Date MICALBCREAT 13 12/16/2022 C-Peptide Date Value Ref Range Status 06/10/2022 0.36 (L) 0.90 - 5.00 ng/mL Final 11/19: ACR 6, glucose 173, c-peptide 0.85, TC 176, HDL 49, TG 137, LDL 100, TSH 0.92, ZOK92-Om 0.22 (high), IA-2 Ab 0.98 (high), ZnT8 and insulin Abs -ve 01/21/2022: LFTs normal, IgA normal, TTG-IgA negative, TPO-Ab normal 03/25/2022: glucose 226, c-peptide 1.16 (0.38) 06/10/2022: glucose 119, c-peptide 0.36 (0.12) 12/16/2022: glucose 156, GFR 79, TC 131, TG 64, HDL 68, LDL 50, ACR 13, TSH 0.79, A1c 7.3 Assessment and plan: Ms. Painting is a 48 y.o. female with T1D/JODIE; Based on high T1D Abs and low c-peptide as above. HbA1c goal 7% At goal? No Lab Results Component Value Date HGBA1C 8.3 (H) 08/25/2023 HGBA1C 7.6 (H) 04/21/2023 HGBA1C 7.3 (H) 12/16/2022 Assessment of glycemic status Bgs tend to increase in am around time of waking up/coffee/BF, then relatively improve in afternoon, then increase again in evening after dinner. Overnight Bgs are mostly stable/trending a bit downwards. No significant hypoglycemia (only occasionally). Recommended testing frequency She uses Libre2 CGM Changes recommended -Let's keep Lantus at 9 units at night. -Adjust Humalog to 5 (coffee/BF, to have those together rather than )/10/04 units, plus corrective scale of 1 additional unit for every 70 mg/dl above 160 mg/dl. -Try to keep a log of your reads and insulin doses administered. Retinopathy Due for dilated exam no 10/2023 Nephropathy Next microalb due OSMAN inh/ARB indicated? no 12/2023 no Neuropathy Due for foot exam no 12/2023 CV risk/Lipids ACC 10 yr ASCVD risk Due for repeat lipid panel Statin indicated? 10 year ASCVD risk is 4.6% 12/2023 Yes; started rosuvastatin 5 mg daily (moderate intensity) in 11/2021. I ordered repeat LFTs since bilirubin was mildly elevated in 09/2021 (but improving); came back normal in 12/2021. Statin is well tolerated. LDL is good at 50 with TG 64 in 11/2022. Thyroid functions/other tests Lab Results Component Value Date TSH 0.79 12/16/2022 Repeat TFTs annually. TTG-Ab/IgA and TPO-Ab normal in 12/2021. Vaccines If not up to date, recommend annual flu vaccine, COVID vaccine, pneumococcal vaccine, HBV vaccine if (specially if <60 years), shingles vaccine >50 years, tetanus vaccine every 10 years, and HPV vaccine (<26 years). Return in about 6 weeks (around 10/13/2023) for DM f/u. Time spent reviewing chart, during the encounter, putting orders and coordinating care on the encounter day is 30 minutes. Kenneth Sparrow MD Endocrinology documented in this encounter [facility] 04-28-2023 History of Present illness Narrative Images from the original note were not included. Reason for visit/chief complaint: TYPE 1 DIABETES W/O COMPLICATIONS Date: 04/28/2023 Referring Provider: No ref. provider found Primary Care Provider: Shaan Olivares PA-C HPI: Ms. Painting is a 48 y.o. female with hx of an unremarkable PMH, tubal ligation. DM type: T1D/JODIE Duration/since: 10/07/2021 At time of diagnosis, patient was thin (was overweight a few months prior; BMI 28.3). She unintentionally lost about 30 lb over 2-3 months. She was diagnosed with DKA on 10/07/2021. Hx of autoimmune diseases: none Family hx of DM: brother T2DM, MGF ?type Current diabetes medications: -Glargine 9 units daily at night -Lispro 2 units before breakfast, 3 units before lunch/dinner, plus corrective scale of 1 unit for every 70 mg/dl above 180 mg/dl (~10 minutes before eating) Glucose checks: CGM interpretation: Type: Libre2 Duration: 04/15/2023 to 04/28/2023 %time CGM is active: 93% Average glucose 149 mg/dl GMI: 6.9% Variability 29.1% Times in range: Target 70-180 mg/dl: 84% High 180-250 mg/dl: 12% Very high >250 mg/dl: 4% Low 55-70 mg/dl: 0% Very low <55 mg/dl: 0% Interpretation: Bgs are within goal for the most part. Bgs overnight is either stable or slightly trending down. Had 3 occasions of low reads in the last 2 weeks; at night/early am. No significant hypoglycemia or a pattern for hypoglycemia. Average glucose in better in the last 2 weeks compared to last 3 months; says she had some stress/family issues at that time; now getting better. -Hypoglycemia awareness: yes, BG threshold: 60 Lab Results Component Value Date HGBA1C 7.6 (H) 04/21/2023 HGBA1C 7.3 (H) 12/16/2022 HGBA1C 6.7 (A) 06/24/2022 Wt Readings from Last 3 Encounters: 04/28/23 52 kg (114 lb 11.2 oz) 12/30/22 55.3 kg (122 lb) 09/23/22 56.2 kg (124 lb) Complications/comorbidities: -Retinopathy: no, last dilated eye exam: 09/2022 -Nephropathy: no Lab Results Component Value Date EGFR 79 12/16/2022 MICALBCREAT 13 12/16/2022 MICALBCREAT 6 11/19/2021 -Neuropathy: no, does not follow up with podiatry, no feet ulcers/wounds -Prior CV events: no Lab Results Component Value Date LDLCALC 50 12/16/2022 -Smoking status: current Diabetes medications tried before/other possible contraindications for DM medications: None No renal impairment, alcoholism, CHF, decompensated liver disease, persistent nausea/vomiting, personal/family hx of medullary thyroid cancer, hx of pancreatitis, GB/biliary disease, recurrent UTI/groin fungal infections, postural hypotension, PVD or osteoporosis. No claudication. Review of Systems: as per HPI Medical History: History reviewed. No pertinent past medical history. Surgical History: Past Surgical History: Procedure Laterality Date LAPAROSCOPY TONSILECTOMY, ADENOIDECTOMY, BILATERAL MYRINGOTOMY AND TUBES Family History: Family History Problem Relation Age of Onset Thyroid disease Mother Heart disease Mother Diabetes Brother Type 2 Heart disease Maternal Aunt Diabetes Maternal Grandfather Social History: Social History Socioeconomic History Marital status: Single Tobacco Use Smoking status: Every Day Smokeless tobacco: Never Allergies: Allergies Allergen Reactions Bactrim [Sulfamethoxazole-Trimethoprim] Unknown Penicillins Unknown Zoloft [Sertraline] Headache Epinephrine Palpitations Sulfa (Sulfonamide Antibiotics) Rash Current Medications: Current Outpatient Medications Medication Sig Dispense Refill alcohol swabs PadM Use to check blood sugar 4 times daily and as needed for low blood sugar. ICD10 code: E10.9 . 200 each 11 blood sugar diagnostic (glucose blood) strips Use to check blood sugar 4 times daily and as needed for low blood sugar. ICD10 code: E10.9 . 200 each 11 flash glucose scanning reader (FreeStyle Alexander 2 [place]) Misc Use as directed for glucose monitoring Dg code E10.9 . 1 each 0 flash glucose sensor (FreeStyle Alexander 2 Sensor) Kit Use as directed every 14 days Dg code E10.9 . 2 kit 11 insulin glargine (Lantus Solostar U-100 Insulin) 100 unit/mL (3 mL) InPn Inject 9 units under the skin daily. . 15 mL 3 insulin lispro (HumaLOG KwikPen Insulin) 100 unit/mL InPn Inject under the skin 3 times daily before meals as instructed. Maximum daily dose: 30 units. . 15 mL 11 lancets Misc Use to check blood sugar 4 times daily and as needed for low blood sugar. ICD10 code: E10.9 . 200 each 11 pen needle, diabetic 31 gauge x 5/16 Ndle Use to inject insulin 4 times daily as instructed. . 200 each 11 rosuvastatin (CRESTOR) 5 MG tablet Take 1 (one) tablet (5 mg total) by mouth daily . 30 tablet 11 No current facility-administered medications for this visit. Physical Exam: Vitals: BP 120/78 Pulse 86 Wt 52 kg (114 lb 11.2 oz) BMI 20.98 kg/m , Body mass index is 20.98 kg/m ., Wt Readings from Last 3 Encounters: 04/28/23 52 kg (114 lb 11.2 oz) 12/30/22 55.3 kg (122 lb) 09/23/22 56.2 kg (124 lb) General/Constitutional: , well-developed and in no distress. Pulmonary/Chest: effort normal Musculoskeletal: nomal range of motion, normal muscle mass Neurological: alert and oriented Skin: no lipohypertrophy Psychiatric: appropriate affect Lab/Imaging Data: No results found for: WBC , HGB , HCT , MCV , PLT Lab Results Component Value Date GLUCOSE 156 (H) 12/16/2022 NA 141 12/16/2022 K 4.4 12/16/2022 CL 110 (H) 12/16/2022 BUN 14 12/16/2022 CREATININE 0.91 12/16/2022 Lab Results Component Value Date ALT 25 01/21/2022 AST 15 01/21/2022 ALKPHOS 63 01/21/2022 BILITOT 1.1 01/21/2022 Lab Results Component Value Date TSH 0.79 12/16/2022 THYROIDAB 1.2 01/21/2022 No results found for: PTH , CALCIUM , DAVIAN , PHOS Lab Results Component Value Date HGBA1C 7.6 (H) 04/21/2023 Lab Results Component Value Date LDLCALC 50 12/16/2022 CHOL 131 12/16/2022 HDL 68 12/16/2022 TRIG 64 12/16/2022 CHOLHDL 1.9 12/16/2022 Lab Results Component Value Date MICALBCREAT 13 12/16/2022 C-Peptide Date Value Ref Range Status 06/10/2022 0.36 (L) 0.90 - 5.00 ng/mL Final 11/19: ACR 6, glucose 173, c-peptide 0.85, TC 176, HDL 49, TG 137, LDL 100, TSH 0.92, WEW17-Sn 0.22 (high), IA-2 Ab 0.98 (high), ZnT8 and insulin Abs -ve 01/21/2022: LFTs normal, IgA normal, TTG-IgA negative, TPO-Ab normal 03/25/2022: glucose 226, c-peptide 1.16 (0.38) 06/10/2022: glucose 119, c-peptide 0.36 (0.12) 12/16/2022: glucose 156, GFR 79, TC 131, TG 64, HDL 68, LDL 50, ACR 13, TSH 0.79, A1c 7.3 Assessment and plan: Ms. Painting is a 48 y.o. female with T1D/JODIE; Based on high T1D Abs and low c-peptide as above. HbA1c goal 7% At goal? No Lab Results Component Value Date HGBA1C 7.6 (H) 04/21/2023 HGBA1C 7.3 (H) 12/16/2022 HGBA1C 6.7 (A) 06/24/2022 Assessment of glycemic status Bgs are within goal for the most part. Bgs overnight is either stable or slightly trending down. Had 3 occasions of low reads in the last 2 weeks; at night/early am. No significant hypoglycemia or a pattern for hypoglycemia. Average glucose in better in the last 2 weeks compared to last 3 months (which may explain the higher A1c); says she had some stress/family issues at that time; now getting better. Recommended testing frequency She uses Libre2 CGM Changes recommended Keep on same insulin regimen. She will let me know if getting frequent high/lows or lows overnight. Retinopathy Due for dilated exam no 10/2023 Nephropathy Next microalb due OSMAN inh/ARB indicated? no 12/2023 no Neuropathy Due for foot exam no 12/2023 CV risk/Lipids ACC 10 yr ASCVD risk Due for repeat lipid panel Statin indicated? 10 year ASCVD risk is 4.6% 12/2023 Yes; started rosuvastatin 5 mg daily (moderate intensity) in 11/2021. I ordered repeat LFTs since bilirubin was mildly elevated in 09/2021 (but improving); came back normal in 12/2021. Statin is well tolerated. LDL is good at 50 with TG 64 in 11/2022. Thyroid functions/other tests Lab Results Component Value Date TSH 0.79 12/16/2022 Repeat TFTs annually. TTG-Ab/IgA and TPO-Ab normal in 12/2021. Vaccines If not up to date, recommend annual flu vaccine, COVID vaccine, pneumococcal vaccine, HBV vaccine if (specially if <60 years), shingles vaccine >50 years, tetanus vaccine every 10 years, and HPV vaccine (<26 years). Return in about 4 months (around 08/16/2023) for DM f/u. Kenneth Sparrow MD Endocrinology documented in this encounter [facility] 12-30-2022 Instructions Kenneth Sparrow MD - 12/30/2022 1:50 PM EDT Let's change to correction to 1 unit for every 70 mg/dl above 180 mg/dl. Let me know if you are getting time in range <70%, highs >30%, lows >1%, or if you are getting low/lowish reads in the morning. Labs before next visit. documented in this encounter [facility] 12-30-2022 History of Present illness Narrative Images from the original note were not included. Reason for visit/chief complaint: TYPE 1 DIABETES W/O COMPLICATIONS Date: 12/30/2022 Referring Provider: No ref. provider found Primary Care Provider: Shaan Olivares PA-C HPI: Ms. Painting is a 47 y.o. female with hx of an unremarkable PMH, tubal ligation. DM type: T1D/JODIE Duration/since: 10/07/2021 At time of diagnosis, patient was thin (was overweight a few months prior; BMI 28.3). She unintentionally lost about 30 lb over 2-3 months. She was diagnosed with DKA on 10/07/2021. Hx of autoimmune diseases: none Family hx of DM: brother T2DM, MGF ?type Current diabetes medications: -Glargine 9 units daily at night -Lispro 2 units before breakfast, 3 units before lunch/dinner, plus corrective scale of 1 unit for every 50 mg/dl above 150 mg/dl (average ~9 units daily) She has to snack around 10-11 am to avoid a low, even if not active at work; mainly happen when she takes correction in am with breakfast. Glucose checks: CGM interpretation: Type: Libre2 Duration: 12/17/2022 to 12/30/2022 %time CGM is active: 85% Average glucose 142 mg/dl GMI: 6.7% Variability 27.1% Times in range: Target 70-180 mg/dl: 84% High 180-250 mg/dl: 15% Very high >250 mg/dl: 0% Low 55-70 mg/dl: 1% Very low <55 mg/dl: 0% Interpretation: Bgs are within goal for the most part. A few low reads happened some days in am/around noon (3 days), in the evening (2 days), and overnight (1 day). Overnight blood sugars seem to be stable generally (some days seems to be trending down though). Hypoglycemia doesn't seem to be very significant/frequent. -Hypoglycemia awareness: yes, BG threshold: 60 Lab Results Component Value Date HGBA1C 7.3 (H) 12/16/2022 Wt Readings from Last 3 Encounters: 12/30/22 55.3 kg (122 lb) 09/23/22 56.2 kg (124 lb) 06/24/22 58.1 kg (128 lb) Complications/comorbidities: -Retinopathy: no, last dilated eye exam: 09/2022 -Nephropathy: no Lab Results Component Value Date EGFR 79 12/16/2022 MICALBCREAT 13 12/16/2022 MICALBCREAT 6 11/19/2021 -Neuropathy: no, does not follow up with podiatry, no feet ulcers/wounds -Prior CV events: no Lab Results Component Value Date LDLCALC 50 12/16/2022 -Smoking status: current Diabetes medications tried before/other possible contraindications for DM medications: None No renal impairment, alcoholism, CHF, decompensated liver disease, persistent nausea/vomiting, personal/family hx of medullary thyroid cancer, hx of pancreatitis, GB/biliary disease, recurrent UTI/groin fungal infections, postural hypotension, PVD or osteoporosis. No claudication. Review of Systems: as per HPI/subjective/interval history, otherwise negative Medical History: No past medical history on file. Surgical History: Past Surgical History: Procedure Laterality Date LAPAROSCOPY TONSILECTOMY, ADENOIDECTOMY, BILATERAL MYRINGOTOMY AND TUBES Family History: Family History Problem Relation Age of Onset Thyroid disease Mother Heart disease Mother Diabetes Brother Type 2 Heart disease Maternal Aunt Diabetes Maternal Grandfather Social History: Social History Socioeconomic History Marital status: Single Tobacco Use Smoking status: Every Day Smokeless tobacco: Never Allergies: Allergies Allergen Reactions Bactrim [Sulfamethoxazole-Trimethoprim] Unknown Penicillins Unknown Zoloft [Sertraline] Headache Epinephrine Palpitations Sulfa (Sulfonamide Antibiotics) Rash Current Medications: Current Outpatient Medications Medication Sig Dispense Refill insulin glargine (Lantus Solostar U-100 Insulin) 100 unit/mL (3 mL) InPn Inject 9 units under the skin daily. . 15 mL 3 insulin lispro (HumaLOG KwikPen Insulin) 100 unit/mL InPn Inject under the skin 3 times daily before meals as instructed. Maximum daily dose: 30 units. . 15 mL 11 rosuvastatin (CRESTOR) 5 MG tablet Take 1 (one) tablet (5 mg total) by mouth daily . 30 tablet 11 alcohol swabs PadM Use to check blood sugar 4 times daily and as needed for low blood sugar. ICD10 code: E10.9 . 200 each 11 blood sugar diagnostic (glucose blood) strips Use to check blood sugar 4 times daily and as needed for low blood sugar. ICD10 code: E10.9 . 200 each 11 flash glucose scanning reader (FreeStyle Alexander 2 [place]) Misc Use as directed for glucose monitoring Dg code E10.9 . 1 each 0 flash glucose sensor (FreeStyle Alexander 2 Sensor) Kit Use as directed every 14 days Dg code E10.9 . 2 kit 11 lancets Misc Use to check blood sugar 4 times daily and as needed for low blood sugar. ICD10 code: E10.9 . 200 each 11 pen needle, diabetic 31 gauge x 12/15 Ndle Use to inject insulin 4 times daily as instructed. . 200 each 11 No current facility-administered medications for this visit. Physical Exam: Vitals: BP 135/78 Pulse 73 Ht 5' 2 Wt 55.3 kg (122 lb) BMI 22.31 kg/m , Body mass index is 22.31 kg/m ., Wt Readings from Last 3 Encounters: 12/30/22 55.3 kg (122 lb) 09/23/22 56.2 kg (124 lb) 06/24/22 58.1 kg (128 lb) General/Constitutional: , well-developed and in no distress. Pulmonary/Chest: effort normal Musculoskeletal: nomal range of motion, normal muscle mass Neurological: alert and oriented Skin: no lipohypertrophy Feet: no ulcers/wounds. Monofilament test is normal. No edema. Psychiatric: appropriate affect Lab/Imaging Data: No results found for: WBC, HGB, HCT, MCV, PLT Lab Results Component Value Date GLUCOSE 156 (H) 12/16/2022 NA 141 12/16/2022 K 4.4 12/16/2022 CL 110 (H) 12/16/2022 BUN 14 12/16/2022 CREATININE 0.91 12/16/2022 Lab Results Component Value Date ALT 25 01/21/2022 AST 15 01/21/2022 ALKPHOS 63 01/21/2022 BILITOT 1.1 01/21/2022 Lab Results Component Value Date TSH 0.79 12/16/2022 THYROIDAB 1.2 01/21/2022 No results found for: PTH, CALCIUM, DAVIAN, PHOS Lab Results Component Value Date HGBA1C 7.3 (H) 12/16/2022 Lab Results Component Value Date LDLCALC 50 12/16/2022 CHOL 131 12/16/2022 HDL 68 12/16/2022 TRIG 64 12/16/2022 CHOLHDL 1.9 12/16/2022 Lab Results Component Value Date MICALBCREAT 13 12/16/2022 C-Peptide Date Value Ref Range Status 06/10/2022 0.36 (L) 0.90 - 5.00 ng/mL Final 11/19: ACR 6, glucose 173, c-peptide 0.85, TC 176, HDL 49, TG 137, LDL 100, TSH 0.92, JLC19-Gv 0.22 (high), IA-2 Ab 0.98 (high), ZnT8 and insulin Abs -ve 01/21/2022: LFTs normal, IgA normal, TTG-IgA negative, TPO-Ab normal 03/25/2022: glucose 226, c-peptide 1.16 (0.38) 06/10/2022: glucose 119, c-peptide 0.36 (0.12) 12/16/2022: glucose 156, GFR 79, TC 131, TG 64, HDL 68, LDL 50, ACR 13, TSH 0.79, A1c 7.3 Assessment and plan: Ms. Painting is a 47 y.o. female with T1D/JODIE; Based on high T1D Abs and low c-peptide as above. HbA1c goal 7% At goal? No, but very close Lab Results Component Value Date HGBA1C 7.3 (H) 12/16/2022 HGBA1C 6.7 (A) 06/24/2022 HGBA1C 6.5 (A) 03/18/2022 Assessment of glycemic status Bgs are within goal for the most part. A few low reads happened some days in am/around noon (3 days), in the evening (2 days), and overnight (1 day). Overnight blood sugars seem to be stable generally (some days seems to be trending down though). Hypoglycemia doesn't seem to be very significant/frequent. Recommended testing frequency She uses Libre2 CGM Changes recommended -Keep on same insulin doses, but changed correction to 1 unit for every 70 mg/dl above 180 mg/dl. -Let me know if you are getting time in range <70%, highs >30%, lows >1%, or if you are getting low/lowish reads in the morning. Retinopathy Due for dilated exam no 10/2023 Nephropathy Next microalb due OSMAN inh/ARB indicated? no 12/2023 no Neuropathy Due for foot exam no 12/2023 CV risk/Lipids ACC 10 yr ASCVD risk Due for repeat lipid panel Statin indicated? 10 year ASCVD risk is 4.6% 12/2023 Yes; started rosuvastatin 5 mg daily (moderate intensity) in 11/2021. I ordered repeat LFTs since bilirubin was mildly elevated in 09/2021 (but improving); came back normal in 12/2021. Statin is well tolerated. LDL is good at 50 with TG 64 in 11/2022. Thyroid functions/other tests Lab Results Component Value Date TSH 0.79 12/16/2022 Repeat TFTs annually. TTG-Ab/IgA and TPO-Ab normal in 12/2021. Vaccines If not up to date, recommend annual flu vaccine, COVID vaccine, pneumococcal vaccine, HBV vaccine if (specially if <60 years), shingles vaccine >50 years, tetanus vaccine every 10 years, and HPV vaccine (<26 years). Return in about 4 months (around 05/01/2023). Time spent reviewing chart, during the encounter, putting orders and coordinating care on the encounter day is 30 minutes. Kenneth Sparrow MD Endocrinology documented in this encounter [facility] 09-23-2022 Instructions Kenneth Sparrow MD - 09/23/2022 11:07 AM EST Please have labs done before next visit, after 12 hr overnight fasting. Keep on same insulin doses. Contact us if your blood sugar is getting below 70, or above 200-250 mg/dl frequently. documented in this encounter [facility] 09-23-2022 History of Present illness Narrative Images from the original note were not included. Reason for visit/chief complaint: TYPE 1 DIABETES W/O COMPLICATIONS Date: 09/23/2022 Referring Provider: No ref. provider found Primary Care Provider: Shaan Olivares PA-C HPI: Ms. Painting is a 47 y.o. female with hx of an unremarkable PMH, tubal ligation. DM type: T1D/JODIE Duration/since: 10/07/2021 At time of diagnosis, patient was thin (was overweight a few months prior; BMI 28.3). She unintentionally lost about 30 lb over 2-3 months. She was diagnosed with DKA on 10/07/2021. Hx of autoimmune diseases: none Family hx of DM: brother T2DM, MGF ?type Current diabetes medications: -Glargine 9 units daily at night -Lispro 2 units before breakfast/lunch and 3-4 dinner, plus corrective scale of 1 unit for every 50 mg/dl above 150 mg/dl. Doesn't take Humalog at bedtime. Now, she doesn't have to have a snack in afternoon to avoid hypoglycemia at work. Glucose checks: CGM interpretation: Type: Libre2 Duration: 09/10/2022 to 09/23/2022 %time CGM is active: 87% Average glucose 151 mg/dl GMI: 6.9% Variability 27.1% Times in range: Target 70-180 mg/dl: 77% High 180-250 mg/dl: 22% Very high >250 mg/dl: 1% Low 55-70 mg/dl: 0% Very low <55 mg/dl: 0% Interpretation: Bgs are at goal for the most part. There are some spikes that are not frequent and usually not very high during the day. No significant hypoglycemia. -Hypoglycemia awareness: yes, BG threshold: 60 Lab Results Component Value Date HGBA1C 6.7 (A) 06/24/2022 Wt Readings from Last 3 Encounters: 09/23/22 56.2 kg (124 lb) 06/24/22 58.1 kg (128 lb) 03/18/22 57.2 kg (126 lb) Complications/comorbidities: -Retinopathy: no, last dilated eye exam: 09/2021 -Nephropathy: no Lab Results Component Value Date MICALBCREAT 6 11/19/2021 -Neuropathy: no, does not follow up with podiatry, no feet ulcers/wounds -Prior CV events: no Lab Results Component Value Date LDLCALC 100 11/19/2021 -Smoking status: current, she is interested in medications to help her quit; will discuss that with her PCP. Diabetes medications tried before/other possible contraindications for DM medications: None No renal impairment, alcoholism, CHF, decompensated liver disease, persistent nausea/vomiting, personal/family hx of medullary thyroid cancer, hx of pancreatitis, GB/biliary disease, recurrent UTI/groin fungal infections, postural hypotension, PVD or osteoporosis. No claudication. Flu vaccine: no Review of Systems: as per HPI/subjective/interval history, otherwise negative Medical History: History reviewed. No pertinent past medical history. Surgical History: Past Surgical History: Procedure Laterality Date LAPAROSCOPY TONSILECTOMY, ADENOIDECTOMY, BILATERAL MYRINGOTOMY AND TUBES Family History: Family History Problem Relation Age of Onset Thyroid disease Mother Heart disease Mother Diabetes Brother Type 2 Heart disease Maternal Aunt Diabetes Maternal Grandfather Social History: Social History Socioeconomic History Marital status: Single Tobacco Use Smoking status: Every Day Smokeless tobacco: Never Allergies: Allergies Allergen Reactions Bactrim [Sulfamethoxazole-Trimethoprim] Unknown Penicillins Unknown Zoloft [Sertraline] Headache Epinephrine Palpitations Sulfa (Sulfonamide Antibiotics) Rash Current Medications: Current Outpatient Medications Medication Sig Dispense Refill insulin glargine (Lantus Solostar U-100 Insulin) 100 unit/mL (3 mL) InPn Inject 9 units under the skin daily. . 15 mL 3 insulin lispro (HumaLOG KwikPen Insulin) 100 unit/mL InPn Inject 4 units 3 times daily before meals, under the skin, plus correction as instructed. Maximum daily dose: 30 units. . 15 mL 11 rosuvastatin (CRESTOR) 5 MG tablet Take 1 (one) tablet (5 mg total) by mouth daily . 30 tablet 11 alcohol swabs PadM Use to check blood sugar 4 times daily and as needed for low blood sugar. ICD10 code: E10.9 . 200 each 11 blood sugar diagnostic (glucose blood) strips Use to check blood sugar 4 times daily and as needed for low blood sugar. ICD10 code: E10.9 . 200 each 11 flash glucose scanning reader (FreeStyle Alexander 2 [place]) Misc Use as directed for glucose monitoring Dg code E10.9 . 1 each 0 flash glucose sensor (FreeStyle Alexander 2 Sensor) Kit Use as directed every 14 days Dg code E10.9 . 2 kit 11 lancets Misc Use to check blood sugar 4 times daily and as needed for low blood sugar. ICD10 code: E10.9 . 200 each 11 pen needle, diabetic 31 gauge x 5/16 Ndle Use to inject insulin 4 times daily as instructed. . 200 each 11 No current facility-administered medications for this visit. Physical Exam: Vitals: BP 132/80 Pulse 96 Ht 5' 2 Wt 56.2 kg (124 lb) BMI 22.68 kg/m , Body mass index is 22.68 kg/m ., Wt Readings from Last 3 Encounters: 09/23/22 56.2 kg (124 lb) 06/24/22 58.1 kg (128 lb) 03/18/22 57.2 kg (126 lb) General/Constitutional: , well-developed and in no distress. Pulmonary/Chest: effort normal Musculoskeletal: nomal range of motion, normal muscle mass Neurological: alert and oriented Skin: no lipohypertrophy Psychiatric: appropriate affect Lab/Imaging Data: No results found for: WBC, HGB, HCT, MCV, PLT Lab Results Component Value Date GLUCOSE 119 (H) 06/10/2022 Lab Results Component Value Date ALT 25 01/21/2022 AST 15 01/21/2022 ALKPHOS 63 01/21/2022 BILITOT 1.1 01/21/2022 Lab Results Component Value Date TSH 0.92 11/19/2021 THYROIDAB 1.2 01/21/2022 No results found for: PTH, CALCIUM, DAVIAN, PHOS Lab Results Component Value Date HGBA1C 6.7 (A) 06/24/2022 Lab Results Component Value Date LDLCALC 100 11/19/2021 CHOL 176 11/19/2021 HDL 49 11/19/2021 TRIG 137 11/19/2021 CHOLHDL 3.6 11/19/2021 Lab Results Component Value Date MICALBCREAT 6 11/19/2021 C-Peptide Date Value Ref Range Status 06/10/2022 0.36 (L) 0.90 - 5.00 ng/mL Final 11/19: ACR 6, glucose 173, c-peptide 0.85, TC 176, HDL 49, TG 137, LDL 100, TSH 0.92, UFR70-Pw 0.22 (high), IA-2 Ab 0.98 (high), ZnT8 and insulin Abs -ve 01/21/2022: LFTs normal, IgA normal, TTG-IgA negative, TPO-Ab normal 03/25/2022: glucose 226, c-peptide 1.16 (0.38) 06/10/2022: glucose 119, c-peptide 0.36 (0.12) Assessment and plan: Ms. Painting is a 47 y.o. female with T1D/JODIE; Based on high T1D Abs and low c-peptide as above. HbA1c goal 7% At goal? yes Lab Results Component Value Date HGBA1C 6.7 (A) 06/24/2022 HGBA1C 6.5 (A) 03/18/2022 HGBA1C 8.2 (A) 12/10/2021 Assessment of glycemic status Bgs are at goal for the most part. There are some spikes that are not frequent and usually not very high during the day. No significant hypoglycemia. Recommended testing frequency She uses Libre2 CGM. Changes recommended Keep on same insulin doses Retinopathy Due for dilated exam no 09/2022 Nephropathy Next microalb due OSMAN inh/ARB indicated? no Will repeat before next visit, along with chem7 If there is high ACR Neuropathy Due for foot exam no 10/2022 CV risk/Lipids ACC 10 yr ASCVD risk Due for repeat lipid panel Statin indicated? 10 year ASCVD risk is 4.6% 10/2022; repeat before next visit Yes; started rosuvastatin 5 mg daily (moderate intensity) in 11/2021. I ordered repeat LFTs since bilirubin was mildly elevated in 09/2021 (but improving); came back normal in 12/2021. Statin is well tolerated. Thyroid functions/other tests Lab Results Component Value Date TSH 0.92 11/19/2021 Repeat TFTs annually. TTG-Ab/IgA and TPO-Ab normal in 12/2021. Repeat TSH before next visit Vaccines If not up to date, recommend annual flu vaccine, COVID vaccine, pneumococcal vaccine, HBV vaccine if (specially if <60 years), shingles vaccine >50 years, tetanus vaccine every 10 years, and HPV vaccine (<26 years). Return in about 3 months (around 12/21/2022) for DM f/u. Kenneth Sparrow MD Endocrinology documented in this encounter [facility] 06-24-2022 Instructions Kenneth Sparrow MD - 06/24/2022 11:25 AM EST -Keep glargine (Lantus) at 9 units at night. -Adjust Humalog to 3-4 units before breakfast and dinner, and 2 units before lunch, plus corrective scale of 1 unit for every 50 mg/dl above 150 mg/dl (3 times daily before meals, optimal 10 minutes before eating). 150-200: 1 unit 201-250: 2 units 251-300: 3 units 301-350: 4 units 351-400: 5 units >400: 6 units Please check your blood sugar before meals and at bedtime Contact us if your blood sugar is getting below 70, or above 200 mg/dl frequently. Check your blood sugar, take insulin and eat in this sequence: Check blood sugar --> take insulin --> eat documented in this encounter [facility] 06-24-2022 History of Present illness Narrative Images from the original note were not included. Reason for visit/chief complaint: TYPE 1 DIABETES W/O COMPLICATIONS Date: 06/24/2022 Referring Provider: No ref. provider found Primary Care Provider: Shaan Olivares PA-C HPI: Ms. Painting is a 47 y.o. female with hx of an unremarkable PMH, tubal ligation. DM type: T1D/JODIE Duration/since: 10/07/2021 At time of diagnosis, patient was thin (was overweight a few months prior; BMI 28.3). She unintentionally lost about 30 lb over 2-3 months. She was diagnosed with DKA on 10/07/2021. Hx of autoimmune diseases: none Family hx of DM: brother T2DM, MGF ?type Current diabetes medications: -Glargine 9 units daily at night -Lispro + CF 1:50 >150 mg/dl (3 times daily) She usually makes sure she would have a snack in afternoon to avoid hypoglycemia at work. Glucose checks: CGM interpretation: Type: Libre2 Duration: 06/11/2022 to 06/24/2022 %time CGM is active: 89% Average glucose 143 mg/dl GMI: 6.7% Variability 32.3% Times in range: Target 70-180 mg/dl: 77% High 180-250 mg/dl: 20% Very high >250 mg/dl: 2% Low 55-70 mg/dl: 1% Very low <55 mg/dl: 0% Interpretation: Bgs are at goal for the most part, sometimes low (mainly 60s) after breakfast/lunch/at night. Overnight, there have been different patterns (stable, decreasing/increasing). -Hypoglycemia awareness: yes, BG threshold: 60 Lab Results Component Value Date HGBA1C 6.7 (A) 06/24/2022 Wt Readings from Last 3 Encounters: 06/24/22 58.1 kg (128 lb) 03/18/22 57.2 kg (126 lb) 12/10/21 57.2 kg (126 lb) Complications/comorbidities: -Retinopathy: no, last dilated eye exam: 09/2021 -Nephropathy: no Lab Results Component Value Date MICALBCREAT 6 11/19/2021 -Neuropathy: no, does not follow up with podiatry, no feet ulcers/wounds -Prior CV events: no Lab Results Component Value Date LDLCALC 100 11/19/2021 -Smoking status: current Diabetes medications tried before/other possible contraindications for DM medications: None No renal impairment, alcoholism, CHF, decompensated liver disease, persistent nausea/vomiting, personal/family hx of medullary thyroid cancer, hx of pancreatitis, GB/biliary disease, recurrent UTI/groin fungal infections, postural hypotension, PVD or osteoporosis. No claudication. Review of Systems: as per HPI/subjective/interval history, otherwise negative Medical History: History reviewed. No pertinent past medical history. Surgical History: Past Surgical History: Procedure Laterality Date LAPAROSCOPY TONSILECTOMY, ADENOIDECTOMY, BILATERAL MYRINGOTOMY AND TUBES Family History: Family History Problem Relation Age of Onset Thyroid disease Mother Heart disease Mother Diabetes Brother Type 2 Heart disease Maternal Aunt Diabetes Maternal Grandfather Social History: Social History Socioeconomic History Marital status: Single Tobacco Use Smoking status: Every Day Smokeless tobacco: Never Allergies: Allergies Allergen Reactions Bactrim [Sulfamethoxazole-Trimethoprim] Unknown Penicillins Unknown Zoloft [Sertraline] Headache Epinephrine Palpitations Sulfa (Sulfonamide Antibiotics) Rash Current Medications: Current Outpatient Medications Medication Sig Dispense Refill alcohol swabs PadM Use to check blood sugar 4 times daily and as needed for low blood sugar. ICD10 code: E10.9 . 200 each 11 blood sugar diagnostic (glucose blood) strips Use to check blood sugar 4 times daily and as needed for low blood sugar. ICD10 code: E10.9 . 200 each 11 flash glucose scanning reader (Massive Alexander 2 [place]) Misc Use as directed for glucose monitoring Dg code E10.9 . 1 each 0 flash glucose sensor (FreeStyle Alexander 2 Sensor) Kit Use as directed every 14 days Dg code E10.9 . 2 kit 11 insulin glargine (Lantus Solostar U-100 Insulin) 100 unit/mL (3 mL) InPn Inject 9 units under the skin daily. . 15 mL 3 insulin lispro (HumaLOG KwikPen Insulin) 100 unit/mL InPn Inject 4 units 3 times daily before meals, under the skin, plus correction as instructed. Maximum daily dose: 30 units. . 15 mL 11 lancets Misc Use to check blood sugar 4 times daily and as needed for low blood sugar. ICD10 code: E10.9 . 200 each 11 pen needle, diabetic 31 gauge x 5/16 Ndle Use to inject insulin 4 times daily as instructed. . 200 each 11 rosuvastatin (CRESTOR) 5 MG tablet Take 1 (one) tablet (5 mg total) by mouth daily . 30 tablet 11 No current facility-administered medications for this visit. Physical Exam: Vitals: BP 111/76 Pulse 72 Ht 5' 2 Wt 58.1 kg (128 lb) BMI 23.41 kg/m , Body mass index is 23.41 kg/m ., Wt Readings from Last 3 Encounters: 06/24/22 58.1 kg (128 lb) 03/18/22 57.2 kg (126 lb) 12/10/21 57.2 kg (126 lb) General/Constitutional: , well-developed and in no distress. Pulmonary/Chest: effort normal Musculoskeletal: nomal range of motion, normal muscle mass Neurological: alert and oriented Skin: no lipohypertrophy Psychiatric: appropriate affect Lab/Imaging Data: No results found for: WBC, HGB, HCT, MCV, PLT Lab Results Component Value Date GLUCOSE 119 (H) 06/10/2022 Lab Results Component Value Date ALT 25 01/21/2022 AST 15 01/21/2022 ALKPHOS 63 01/21/2022 BILITOT 1.1 01/21/2022 Lab Results Component Value Date TSH 0.92 11/19/2021 THYROIDAB 1.2 01/21/2022 No results found for: PTH, CALCIUM, DAVIAN, PHOS Lab Results Component Value Date HGBA1C 6.7 (A) 06/24/2022 Lab Results Component Value Date LDLCALC 100 11/19/2021 CHOL 176 11/19/2021 HDL 49 11/19/2021 TRIG 137 11/19/2021 CHOLHDL 3.6 11/19/2021 Lab Results Component Value Date MICALBCREAT 6 11/19/2021 C-Peptide Date Value Ref Range Status 06/10/2022 0.36 (L) 0.90 - 5.00 ng/mL Final 11/19: ACR 6, glucose 173, c-peptide 0.85, TC 176, HDL 49, TG 137, LDL 100, TSH 0.92, ANZ64-Sw 0.22 (high), IA-2 Ab 0.98 (high), ZnT8 and insulin Abs -ve 01/21/2022: LFTs normal, IgA normal, TTG-IgA negative, TPO-Ab normal 03/25/2022: glucose 226, c-peptide 1.16 (0.38) 06/10/2022: glucose 119, c-peptide 0.36 (0.12) Assessment and plan: Ms. Painting is a 47 y.o. female with T1D/JODIE; Based on high T1D Abs and low c-peptide as above. HbA1c goal 7% At goal? yes Lab Results Component Value Date HGBA1C 6.7 (A) 06/24/2022 HGBA1C 6.5 (A) 03/18/2022 HGBA1C 8.2 (A) 12/10/2021 Assessment of glycemic status Bgs are at goal for the most part, sometimes low (mainly 60s) after breakfast/lunch/at night. Overnight, there have been different patterns (stable, decreasing/increasing). Recommended testing frequency She uses Libre2 CGM. Changes recommended -Keep glargine (Lantus) at 9 units at night. -Adjust Humalog to 3-4 units before breakfast and dinner, and 2 units before lunch, plus corrective scale of 1 unit for every 50 mg/dl above 150 mg/dl (3 times daily before meals, optimal 10 minutes before eating). Retinopathy Due for dilated exam no 09/2022 HTN At goal? no yes Nephropathy Next microalb due Next Cr/GFR due OSMAN inh/ARB indicated? no Was normal in 10/2021, can repeat in 5 years after DM diagnosis (2026) 09/2022 If there is high ACR Neuropathy Due for foot exam no 10/2022 CV risk/Lipids ACC 10 yr ASCVD risk Due for repeat lipid panel Statin indicated? Aspirin 81 mg indicated? 10 year ASCVD risk is 4.6% 10/2022 Yes; started rosuvastatin 5 mg daily (moderate intensity) in 11/2021. I ordered repeat LFTs since bilirubin was mildly elevated in 09/2021 (but improving); came back normal in 12/2021. no Thyroid functions/other tests Lab Results Component Value Date TSH 0.92 11/19/2021 Repeat TFTs annually. TTG-Ab/IgA and TPO-Ab normal in 12/2021 Vaccines If not up to date, recommend annual flu vaccine, COVID vaccine, pneumococcal vaccine, HBV vaccine if (specially if <60 years), shingles vaccine >50 years, tetanus vaccine every 10 years, and HPV vaccine (<26 years). Return in about 3 months (around 09/24/2022) for DM f/u. Time spent reviewing chart, during the encounter, putting orders and coordinating care on the encounter day is 27 minutes. Kenneth Sparrow MD Endocrinology documented in this encounter [facility] 12-10-2021 Instructions Kenneth Sparrow MD - 12/10/2021 2:16 PM EDT Please have you blood work done. Keep insulins at the same doses. However, make sure to take less of the Humalog when you know that you will be more active (can try 2-3 units plus correction). Please check your blood sugar before meals and at bedtime Contact us if your blood sugar is getting below 70, or above 200 mg/dl persistently. Check your blood sugar, take insulin and eat in this sequence: Check blood sugar --> take insulin --> eat Start taking rosuvastatin 5 mg daily. Let me know if you develop muscle pains. documented in this encounter [facility] 12-10-2021 History of Present illness Narrative Images from the original note were not included. Reason for visit/chief complaint: TYPE 1 DIABETES W/O COMPLICATIONS Date: 12/10/2021 Referring Provider: No ref. provider found Primary Care Provider: Shaan Olivares PA-C HPI: Ms. Painting is a 46 y.o. female with hx of an unremarkable PMH, tubal ligation. DM type: T1D Duration/since: 10/07/2021 At time of diagnosis, patient was thin (was overweight a few months prior; BMI 28.3). She unintentionally lost about 30 lb over 2-3 months. She was diagnosed with DKA on 10/07/2021. Hx of autoimmune diseases: none Family hx of DM: brother T2DM, MGF ?type She is aiming for 45 grams of carbs a meal. 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 Low BGs as below.. -Hypoglycemia: usually between lunch and dinner, sometimes after dinner; down to 36 mg/dl, mainly when she is more active, happens about ~once every 2 weeks, awareness: yes, BG threshold: 60 Lab Results Component Value Date HGBA1C 8.2 (A) 12/10/2021 Blurry vision is improving. Polydipsia and polyuria improved after insulin was started. Appetite is good. No nausea, vomiting, abdominal pain, dizziness, diarrhea/constipation. Weight has been stable. Complications/comorbidities: -Retinopathy: no, last dilated eye exam: 09/2021 -Nephropathy: no Lab Results Component Value Date MICALBCREAT 6 11/19/2021 -Neuropathy: no, does not follow up with podiatry, no feet ulcers/wounds -Prior CV events: no, not on statin or aspirin Lab Results Component Value Date LDLCALC 100 11/19/2021 -Smoking status: current Diabetes medications tried before/other possible contraindications for DM medications: None No renal impairment, alcoholism, CHF, decompensated liver disease, persistent nausea/vomiting, personal/family hx of medullary thyroid cancer, hx of pancreatitis, GB/biliary disease, recurrent UTI/groin fungal infections, postural hypotension, PVD or osteoporosis. Vaccines: didn't receive the flu vaccine for this season, COVID vaccine , pneumococcal vaccine or HBV vaccine. Review of Systems: as per HPI/subjective/interval history, otherwise negative Medical History: History reviewed. No pertinent past medical history. Surgical History: Past Surgical History: Procedure Laterality Date LAPAROSCOPY TONSILECTOMY, ADENOIDECTOMY, BILATERAL MYRINGOTOMY AND TUBES Family History: Family History Problem Relation Age of Onset Thyroid disease Mother Heart disease Mother Diabetes Brother Type 2 Heart disease Maternal Aunt Diabetes Maternal Grandfather Social History: Social History Socioeconomic History Marital status: Single Tobacco Use Smoking status: Current Every Day Smoker Smokeless tobacco: Never Used Allergies: Allergies Allergen Reactions Bactrim [Sulfamethoxazole-Trimethoprim] Unknown Penicillins Unknown Zoloft [Sertraline] Headache Epinephrine Palpitations Sulfa (Sulfonamide Antibiotics) Rash Current Medications: Current Outpatient Medications Medication Sig Dispense Refill alcohol swabs PadM Use to check blood sugar 4 times daily and as needed for low blood sugar. ICD10 code: E10.9 . 200 each 11 blood sugar diagnostic (glucose blood) strips Use to check blood sugar 4 times daily and as needed for low blood sugar. ICD10 code: E10.9 . 200 each 11 blood-glucose meter,continuous (Dexcom G6 Air Twist Operator) Misc To check blood sugar as instructed. . 1 each 0 blood-glucose sensor (Dexcom G6 Sensor) Nabila To check blood sugar as instructed. . 3 each 11 blood-glucose transmitter (Dexcom G6 Transmitter) Nabila To check blood sugar as instructed. . 1 each 3 insulin glargine (Lantus Solostar U-100 Insulin) 100 unit/mL (3 mL) InPn Inject 9 units under the skin daily. . 15 mL 3 insulin lispro (HumaLOG KwikPen Insulin) 100 unit/mL InPn Inject 4 units 3 times daily before meals, under the skin, plus correction as instructed. Maximum daily dose: 30 units. . 15 mL 11 lancets Misc Use to check blood sugar 4 times daily and as needed for low blood sugar. ICD10 code: E10.9 . 200 each 11 pen needle, diabetic 31 gauge x 5/16 Ndle Use to inject insulin 4 times daily as instructed. . 200 each 11 rosuvastatin (CRESTOR) 5 MG tablet Take 1 (one) tablet (5 mg total) by mouth daily . 30 tablet 11 No current facility-administered medications for this visit. Physical Exam: Vitals: BP 123/70 Pulse (!) 106 Ht 5' 2 Wt 57.2 kg (126 lb) BMI 23.05 kg/m , Body mass index is 23.05 kg/m ., Wt Readings from Last 3 Encounters: 12/10/21 57.2 kg (126 lb) 11/03/21 59 kg (130 lb) General/Constitutional: , well-developed and in no distress. Eyes: no lid retraction (stare), no proptosis Pulmonary/Chest: effort normal Musculoskeletal: nomal range of motion, normal muscle mass Neurological: alert and oriented Psychiatric: appropriate affect Lab/Imaging Data: No results found for: WBC, HGB, HCT, MCV, PLT Lab Results Component Value Date GLUCOSE 173 (H) 11/19/2021 No results found for: ALT, AST, GGT, ALKPHOS, BILITOT Lab Results Component Value Date TSH 0.92 11/19/2021 No results found for: PTH, CALCIUM, DAVIAN, PHOS Lab Results Component Value Date HGBA1C 8.2 (A) 12/10/2021 Lab Results Component Value Date LDLCALC 100 11/19/2021 CHOL 176 11/19/2021 HDL 49 11/19/2021 TRIG 137 11/19/2021 CHOLHDL 3.6 11/19/2021 Lab Results Component Value Date MICALBCREAT 6 11/19/2021 C-Peptide Date Value Ref Range Status 11/19/2021 0.85 (L) 0.90 - 5.00 ng/mL Final 11/19: ACR 6, glucose 173, c-peptide 0.85, TC 176, HDL 49, TG 137, LDL 100, TSH 0.92, UAP37-Gy 0.22 (high), IA-2 Ab 0.98 (high), ZnT8 and insulin Abs -ve Assessment and plan: Ms. Painting is a 46 y.o. female with T1D; Based on high T1D Abs and low c-peptide as above. HbA1c goal 7% At goal? no, but there is remarkable improvement in A1c from >13% to 8.2% over 2 months, and I expect her A1c to be at goal next time based on her current BGs. Lab Results Component Value Date HGBA1C 8.2 (A) 12/10/2021 Assessment of glycemic status Most recently, BGs have been mostly in low to mid 100s, with some reads in 70-100 range, and some in few in high 100s-200s. She may get hypoglycemia when she is more active, down to 30s, but she says it may happen only once every 2 weeks and only related to exertion (in afternoon/evening). Recommended testing frequency 4 times daily. She has T1D, and has been checking her blood sugar 4 times daily, and uses reads to adjust her Humalog dose based on the sliding scale. She takes 4 shots of insulin daily (long and short acting). She would benefit from CGM. I prescribed Dexcom G6 today. Changes recommended No changes in insulin were made today since most blood sugars are at goal. However, I counseled her on taking less Humalog when she is more active. I also discussed dosing Humalog based off carbs, but she still doesn't feel very comfortable counting carbs; will work on that with the dietitian. Retinopathy Due for dilated exam no 09/2021, but they would like to see her in 6 months for ?errors of refraction HTN At goal? no yes Nephropathy Next microalb due Next Cr/GFR due OSMAN inh/ARB indicated? no In 5 years after DM diagnosis 09/2022 If there is high ACR Neuropathy Due for foot exam no 10/2022 CV risk/Lipids ACC 10 yr ASCVD risk Due for repeat lipid panel Statin indicated? Aspirin 81 mg indicated? 10 year ASCVD risk is 4.6% 10/2022 Yes; started rosuvastatin 5 mg daily (moderate intensity). I ordered repeat LFTs since angelita was mildly elevated in 09/2021 (but improving). no Thyroid functions/other tests Lab Results Component Value Date TSH 0.92 11/19/2021 Repeat TFTs annually. Ordered TTG-Ab/IgA and TPO-Ab. Vaccines Recommend annual flu, COVID, PPSV23, HBV vaccines. Return in about 3 months (around 03/12/2022) for T1D f/u. Time spent reviewing chart, during the encounter, putting orders and coordinating care on the encounter day is 56 minutes. Kenneth Sparrow MD Endocrinology documented in this encounter [facility] 11-12-2021 Hospital Discharge instructions Patient Education 11/12/2021 09:10:04 Diabetes Mellitus and Nutrition, Adult Diabetes Mellitus and Nutrition, Adult When you have diabetes (diabetes mellitus), it is very important to have healthy eating habits because your blood sugar (glucose) levels are greatly affected by what you eat and drink. Eating healthy foods in the appropriate amounts, at about the same times every day, can help you: Control your blood glucose. Lower your risk of heart disease. Improve your blood pressure. Reach or maintain a healthy weight. Every person with diabetes is different, and each person has different needs for a meal plan. Your health care provider may recommend that you work with a diet and food and nutrition supervisor (dietitian) to make a meal plan that is best for you. Your meal plan may vary depending on factors such as: The calories you need. The medicines you take. Your weight. Your blood glucose, blood pressure, and cholesterol levels. Your activity level. Other health conditions you have, such as heart or kidney disease. How do carbohydrates affect me? Carbohydrates, also called carbs, affect your blood glucose level more than any other type of food. Eating carbs naturally raises the amount of glucose in your blood. Carb counting is a method for keeping track of how many carbs you eat. Counting carbs is important to keep your blood glucose at a healthy level, especially if you use insulin or take certain oral diabetes medicines. It is important to know how many carbs you can safely have in each meal. This is different for every person. Your dietitian can help you calculate how many carbs you should have at each meal and for each snack. Foods that contain carbs include: Bread, cereal, rice, pasta, and crackers. Potatoes and corn. Peas, beans, and lentils. Milk and yogurt. Fruit and juice. Desserts, such as cakes, cookies, ice cream, and candy. How does alcohol affect me? Alcohol can cause a sudden decrease in blood glucose (hypoglycemia), especially if you use insulin or take certain oral diabetes medicines. Hypoglycemia can be a life-threatening condition. Symptoms of hypoglycemia (sleepiness, dizziness, and confusion) are similar to symptoms of having too much alcohol. If your health care provider says that alcohol is safe for you, follow these guidelines: Limit alcohol intake to no more than 1 drink per day for non women and 2 drinks per day for men. One drink equals 12 oz of beer, 5 oz of wine, or 1 oz of hard liquor. Do not drink on an empty stomach. Keep yourself hydrated with water, diet soda, or unsweetened iced tea. Keep in mind that regular soda, juice, and other mixers may contain a lot of sugar and must be counted as carbs. What are tips for following this plan? Reading food labels Start by checking the serving size on the Nutrition Facts label of packaged foods and drinks. The amount of calories, carbs, fats, and other nutrients listed on the label is based on one serving of the item. Many items contain more than one serving per package. Check the total grams (g) of carbs in one serving. You can calculate the number of servings of carbs in one serving by dividing the total carbs by 15. For example, if a food has 30 g of total carbs, it would be equal to 2 servings of carbs. Check the number of grams (g) of saturated and trans fats in one serving. Choose foods that have low or no amount of these fats. Check the number of milligrams (mg) of salt (sodium) in one serving. Most people should limit total sodium intake to less than 2,300 mg per day. Always check the nutrition information of foods labeled as low-fat or nonfat . These foods may be higher in added sugar or refined carbs and should be avoided. Talk to your dietitian to identify your daily goals for nutrients listed on the label. Shopping Avoid buying canned, premade, or processed foods. These foods tend to be high in fat, sodium, and added sugar. Shop around the outside edge of the grocery store. This includes fresh fruits and vegetables, bulk grains, fresh meats, and fresh dairy. Cooking Use low-heat cooking methods, such as baking, instead of high-heat cooking methods like deep frying. Cook using healthy oils, such as olive, canola, or sunflower oil. Avoid cooking with butter, cream, or high-fat meats. Meal planning Eat meals and snacks regularly, preferably at the same times every day. Avoid going long periods of time without eating. Eat foods high in fiber, such as fresh fruits, vegetables, beans, and whole grains. Talk to your dietitian about how many servings of carbs you can eat at each meal. Eat 4 6 ounces (oz) of lean protein each day, such as lean meat, chicken, fish, eggs, or tofu. One oz of lean protein is equal to: ?1 oz of meat, chicken, or fish. ?1 egg. ? cup of tofu. Eat some foods each day that contain healthy fats, such as avocado, nuts, seeds, and fish. Lifestyle Check your blood glucose regularly. Exercise regularly as told by your health care provider. This may include: ?150 minutes of moderate-intensity or vigorous-intensity exercise each week. This could be brisk walking, biking, or water aerobics. ?Stretching and doing strength exercises, such as yoga or weightlifting, at least 2 times a week. Take medicines as told by your health care provider. Do not use any products that contain nicotine or tobacco, such as cigarettes and e-cigarettes. If you need help quitting, ask your health care provider. Work with a counselor or adaptive physical educator to identify strategies to manage stress and any emotional and social challenges. Questions to ask a health care provider Do I need to meet with a adaptive physical educator? Do I need to meet with a dietitian? What number can I call if I have questions? When are the best times to check my blood glucose? Where to find more information: [place] [employer] Association: diabetes.org Academy of Nutrition and Dietetics: www.eatright.org National [place] of Diabetes and Digestive and Kidney Diseases (NIH): www.niddk.nih.gov Summary A healthy meal plan will help you control your blood glucose and maintain a healthy lifestyle. Working with a diet and food and nutrition supervisor (dietitian) can help you make a meal plan that is best for you. Keep in mind that carbohydrates (carbs) and alcohol have immediate effects on your blood glucose levels. It is important to count carbs and to use alcohol carefully. This information is not intended to replace advice given to you by your health care provider. Make sure you discuss any questions you have with your health care provider. Document Released: 04/15/2006 Document Revised: 07/01/2018 Document Reviewed: 08/23/2017 [employer] Patient Education 2020 SEAT 4a. Follow Up Care 10/15/2021 08:50:51 With:Shaan COFFMAN Address: [facility] [place] [id number]- When:Within 1 Year(s) [facility] Medicine [facility] 11-03-2021 Instructions Kenneth Sparrow MD - 11/03/2021 10:06 AM EDT Let's keep the Lantus dose at 9 units at bedtime. Try to avoid snacking at bedtime to see how your Lantus is working. Take Humalog 4 units before each meal 5-10 minutes before eating (3 times daily), plus correction as below: Take 1 unit for every 50 mg/dl above 150 mg/dl 150-200: 1 unit 201-250: 2 units 251-300: 3 units 301-350: 4 units 351-400: 5 units >400: 6 units Examples: You will have breakfast and blood sugar is 220, the you will take 4 + 2 = 6 units. You will skip lunch and blood sugar is 270, then you will take 0 + 3 = 3 units. Please check your blood sugar before meals and at bedtime, and contact us if your blood sugar is getting below 80, or above 250 mg/dl persistently. Check your blood sugar, take insulin and eat in this sequence: Check blood sugar --> take insulin --> eat Please have your labs done after 12 hr overnight fasting. documented in this encounter [facility] 11-03-2021 History of Present illness Narrative Images from the original note were not included. Reason for visit/chief complaint: TYPE 1 DIABETES W/O COMPLICATIONS Date: 11/03/2021 Referring Provider: Shaan Olivares PA-C Primary Care Provider: Shaan Olivares PA-C HPI: Ms. Painting is a 46 y.o. female with hx of an unremarkable PMH. DM type: ?T1D (that's what she was told) Duration/since: 10/07/2021 At time of diagnosis, patient was thin (was overweight a few months prior; BMI 28.3). She unintentionally lost about 30 lb over 2-3 months. She was diagnosed with DKA on 10/07/2021. Hx of autoimmune diseases: none Family hx of DM: brother T2DM, MGF ?type She was referred to DM educator/den; she saw them last week, and has a f/u appointment with them next week. 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 No results found for: HGBA1C Ms. Painting endorses blurry vision. Polydipsia and polyuria improved after insulin was started. She ost weight as above; still losing some. Appetite is good. No nausea, vomiting, abdominal pain, dizziness, diarrhea. Complications/comorbidities: -Retinopathy: no, last dilated eye exam: 09/2021 -Home BP: no checks -Nephropathy: no No results found for: EGFR, MICALBCREAT -Neuropathy: no, does not follow up with podiatry, no feet ulcers/wounds -Prior CV events: no, not on statin or aspirin No results found for: LDLCALC -Smoking status: current Diabetes medications tried before/other possible contraindications for DM medications: None No renal impairment, alcoholism, CHF, decompensated liver disease, persistent nausea/vomiting, personal/family hx of medullary thyroid cancer, hx of pancreatitis, GB/biliary disease, recurrent UTI/groin fungal infections, postural hypotension, PVD or osteoporosis. Vaccines: didn't receive the flu vaccine for this season, COVID vaccine , pneumococcal vaccine or HBV vaccine. Review of Systems: as per HPI/subjective/interval history, otherwise negative Medical History: History reviewed. No pertinent past medical history. Surgical History: Past Surgical History: Procedure Laterality Date LAPAROSCOPY TONSILECTOMY, ADENOIDECTOMY, BILATERAL MYRINGOTOMY AND TUBES Family History: Family History Problem Relation Age of Onset Thyroid disease Mother Heart disease Mother Diabetes Brother Type 2 Heart disease Maternal Aunt Diabetes Maternal Grandfather Social History: Social History Socioeconomic History Marital status: Single Tobacco Use Smoking status: Current Every Day Smoker Smokeless tobacco: Never Used Allergies: Allergies Allergen Reactions Bactrim [Sulfamethoxazole-Trimethoprim] Unknown Penicillins Unknown Zoloft [Sertraline] Headache Epinephrine Palpitations Sulfa (Sulfonamide Antibiotics) Rash Current Medications: Current Outpatient Medications Medication Sig Dispense Refill insulin glargine (LANTUS) 100 unit/mL injection Inject 7 Units under the skin nightly . insulin lispro (AdmeLOG,HumaLOG) 100 unit/mL injection Inject 2 Units under the skin 3 (three) times a day before meals . No current facility-administered medications for this visit. Physical Exam: Vitals: BP 104/66 Pulse 84 Ht 5' 2 Wt 59 kg (130 lb) BMI 23.78 kg/m , Body mass index is 23.78 kg/m ., Wt Readings from Last 3 Encounters: 11/03/21 59 kg (130 lb) General/Constitutional: , well-developed and in no distress. Head: atrautmatic, no facial lesions observed Eyes: no lid retraction (stare), no proptosis Neck: supple, normal range of motion. no thyromegaly present, no pain Cardiovascular: normal rate, regular rhythm, normal heart sounds and DP pulses couldn't be felt bilaterally today, capillary refilling is normal, no edema. Pulmonary/Chest: effort normal and breath sounds normal, no respiratory distress Abdominal: soft, no tenderness Musculoskeletal: nomal range of motion, normal muscle mass and strength Neurological: alert and oriented, no focal deficits, no tremors, DTRs normal, sensation to a 10 gram monofilament below the ankles Skin: warm and moist, no rash noted, no acanthosis nigricans, no lipohypertrophy/lipodystrophy, no ulcers or lesions on the feet and nails are intact Psychiatric: appropriate affect Lab/Imaging Data: No results found for: WBC, HGB, HCT, MCV, PLT No results found for: GLUCOSE, NA, K, CL, BUN, CREATININE No results found for: ALT, AST, GGT, ALKPHOS, BILITOT No results found for: TSH, [id number], THYROIDAB No results found for: PTH, CALCIUM, DAVIAN, PHOS No results found for: HGBA1C No results found for: LDLCALC, CHOL, HDL, TRIG, CHOLHDL No results found for: MICALBCREAT, [id number] No results found for: CPEPTIDE Assessment and plan: Ms. Painting is a 46 y.o. female with ?T1D. HbA1c goal 7% At goal? no No results found for: HGBA1C Assessment of glycemic status BGs fluctuate widely, but it's clear that she needs prandial insulin as BGs increase/are high during the day. Recommended testing frequency 4 times daily Changes recommended -Keep Lantus at 9 units at bedtime and avoid bedtime snacking for now to assess Lantus function. -Start Humalog 4 units before meals plus CF 1:50 >150 mg/dl -Check T1D Abs and c-peptide/glucose to verify DM type. Retinopathy Due for dilated exam no 09/2021, but they would like to see her in 6 months for ?errors of refraction HTN At goal? no yes Nephropathy Next microalb due Next Cr/GFR due OSMAN inh/ARB indicated? no In 5 years if T1D; ordered now till verification 09/2022 If there is high ACR Neuropathy Due for foot exam no 10/2022 CV risk/Lipids ACC 10 yr ASCVD risk Due for repeat lipid panel Statin indicated? Aspirin 81 mg indicated? Ordered lipid panel today Likely, will discuss after lipid panel no Thyroid functions/other tests No results found for: TSH Ordered TFTs today; may need to get TPO-Abs, TTG-Ab if proven to be T1D, and consider AM cortisol if there is continuous weight loss. Vaccines Recommend flu, COVID, PPSV23, HBV vaccines. Return in about 1 month (around 12/03/2021) for Dm f/u. Time spent reviewing chart, during the encounter, putting orders and coordinating care on the encounter day is 67 minutes. Kenneth Sparrow MD Endocrinology documented in this encounter [facility] Evaluation + Plan note No data available for this section [facility] [place] Evaluation + Plan note Future Appointments Appointment Date:02/02/2024 09:20:00 AM Scheduled Provider:Yoaan Roberts Location:[facility] Appointment Type: Open Diagnostic Tests PendingPAP w/ HPV and Genotype rflx 01/05/24 [facility] Evaluation note Diagnosis Type 1 diabetes mellitus without complication (HCC)- Primary Type I (juvenile type) diabetes mellitus without mention of complication, not stated as uncontrolled [facility] Type 1 diabetes mellitus without complication (HCC)- Primary Type I (juvenile type) diabetes mellitus without mention of complication, not stated as uncontrolled [facility] Diagnosis Type 1 diabetes mellitus without complication (HCC)- Primary Type I (juvenile type) diabetes mellitus without mention of complication, not stated as uncontrolled [facility] Diagnosis Type 1 diabetes mellitus without complication (HCC)- Primary Type I (juvenile type) diabetes mellitus without mention of complication, not stated as uncontrolled [facility] Diagnosis Type 1 diabetes mellitus without complication (HCC)- Primary Type I (juvenile type) diabetes mellitus without mention of complication, not stated as uncontrolled [facility] Diagnosis Type 1 diabetes mellitus with hyperglycemia (HCC)- Primary [facility] Diagnosis Type 1 diabetes mellitus with hyperglycemia (HCC)- Primary [facility] Diagnosis Type 1 diabetes mellitus without complication (HCC) Type I (juvenile type) diabetes mellitus without mention of complication, not stated as uncontrolled [facility] Diagnosis Type 1 diabetes mellitus with hyperglycemia (HCC)- Primary Dyslipidemia Other and unspecified hyperlipidemia [facility] Diagnosis Dyslipidemia- Primary Other and unspecified hyperlipidemia Type 1 diabetes mellitus without complication (HCC) Type I (juvenile type) diabetes mellitus without mention of complication, not stated as uncontrolled [facility] Diagnosis Type 1 diabetes mellitus without complication (HCC) Type I (juvenile type) diabetes mellitus without mention of complication, not stated as uncontrolled [facility] Diagnosis Type 1 diabetes mellitus with hyperglycemia (HCC)- Primary Dyslipidemia Other and unspecified hyperlipidemia [facility] Type 1 diabetes mellitus with hyperglycemia (HCC) documented in this encounter [facility] note* Diagnosis Type 1 diabetes mellitus with hyperglycemia (HCC)- Primary documented in this encounter [facility] note* Diagnosis Type 1 diabetes mellitus with hyperglycemia (HCC) documented in this encounter [facility] note* Diagnosis Type 1 diabetes mellitus with hyperglycemia (HCC)- Primary documented in this encounter [facility] note* Diagnosis Type 1 diabetes mellitus with hyperglycemia (HCC)- Primary documented in this encounter [facility] note* Diagnosis Dyslipidemia Other and unspecified hyperlipidemia documented in this encounter [facility] note* Diagnosis Type 1 diabetes mellitus with hyperglycemia (HCC)- Primary Dyslipidemia Other and unspecified hyperlipidemia documented in this encounter [facility] note* Diagnosis Type 1 diabetes mellitus with hyperglycemia (HCC)- Primary documented in this encounter [facility] note* Diagnosis Type 1 diabetes mellitus with hyperglycemia (HCC)- Primary Dyslipidemia Other and unspecified hyperlipidemia documented in this encounter [facility] note* Diagnosis Type 1 diabetes mellitus with hyperglycemia (HCC)- Primary Dyslipidemia Other and unspecified hyperlipidemia documented in this encounter [facility] Discharge instructions No data available for this section [facility] No data available for this section [facility] (narrative)* Consultation (Routine) - Authorized Specialty Diagnoses / Procedures Referred By Nicolle sutton Referred To Contact Nutrition Diagnoses Type 1 diabetes mellitus with hyperglycemia (HCC) Kenneth Sparrow MD [address] [phone] Referral ID Status Reason Start Date Expiration Date V isits Requested Visits Authorized [id number] Authorized 11/03/2023 11/02/2024 1 1 [facility] for visit Narrative* Evaluate and Treat (Routine) - Authorized Specialty Diagnoses / Procedures Referred By Nicolle sutton Referred To Contact Nutrition Diagnoses Type 1 diabetes mellitus with hyperglycemia (HCC) Floresita Bob CNP [address] [place] [address] Phone: tel: fax: [facility] Nutritional Services [address] [place] [phone] Phone: tel: fax: Referral ID Status Reason Start Date Expiration Date V isits Requested Visits Authorized Authorized 05/11/2024 05/11/2025 2 2 [facility] Advance Directives No Advanced Directives Records FoundDocuments on File Type Date Recorded Patient Stitching Department Supervisor Expl anation Advance Directives and Living Will Summary Purpose Family History No Family History Records FoundNo Family History Records Found No data available for this section No Family History Records FoundNo Family History Records FoundNo Family History Records Found No data available for this section No Family History Records FoundNo Family History Records FoundNo Family History Records FoundNo Family History Records FoundNo Family History Records Found Reason for Referral Specialty Diagnoses / Procedures Referred By Contac t Referred To Contact Nutrition Diagnoses Type 1 diabetes mellitus with hyperglycemia (HCC) Floresita Bob CNP [address] [place] [phone] [facility] [address] [place] [phone] Referral ID Status Reason Start Date Expiration Date V isits Requested Visits Authorized [id number] Authorized 05/11/2024 05/11/2025 2 2 Referral ID Status Reason Start Date Expiration Date V isits Requested Visits Authorized [id number] Authorized 05/17/2024 05/17/2025 5 5 Specialty Diagnoses / Procedures Referred By Contac t Referred To Contact Diagnoses Type 1 diabetes mellitus with hyperglycemia (HCC) Kenneth Sparrow MD [address] [place] [phone] Referral ID Status Reason Start Date Expiration Date V isits Requested Visits Authorized [id number] Pending Review 1 1 Specialty Diagnoses / Procedures Referred By Contac t Referred To Contact Cardiology Diagnoses Type 1 diabetes mellitus with hyperglycemia (HCC) Procedures US Doppler ankle/brachial index Kenneth Sparrow MD [address] [place] [phone] Referral ID Status Reason Start Date Expiration Date V isits Requested Visits Authorized [id number] Authorized 01/26/2024 01/25/2025 1 1 Specialty Diagnoses / Procedures Referred By Contac t Referred To Contact Diagnoses Type 1 diabetes mellitus without complication (HCC) Kenneth Sparrow MD [address] [place] [address] Referral ID Status Reason Start Date Expiration Date V isits Requested Visits Authorized [id number] Pending Review 1 1 Specialty Diagnoses / Procedures Referred By Contac t Referred To Contact Kenneth Sparrow MD [address] [place] [address] Referral ID Status Reason Start Date Expiration Date V isits Requested Visits Authorized [id number] Pending Review 1 1 Additional Source Comments Reason for Visit (unrecogniz ed section and content) Reason Comments Diabetes Mellitus Specialty Diagnoses / Procedures Referred By Contac t Referred To Contact Nutrition Diagnoses Type 1 diabetes mellitus with hyperglycemia (HCC) Floresita Bob, TAN [address] [place] [address] Phone: tel: fax: [facility] Nutritional Services [address] [place] [phone] Phone: tel: fax: Referral ID Status Reason Start Date Expiration Date V isits Requested Visits Authorized [id number] Authorized 05/17/2024 05/17/2025 5 5 Reason Comments Education Class Specialty Diagnoses / Procedures Referred By Contac t Referred To Contact Diabetes Services Diagnoses Type 1 diabetes mellitus without complications Shaan Olivares PA [address] [place] [address] [place] [address] [facility] Diabetic Education [address] [place] [address] Referral ID Status Reason Start Date Expiration Date Visits Requested Visits Authorized [id number] Pending Review Specialty Services Required 10/15/2021 10/15/2022 1 1 Specialty Diagnoses / Procedures Referred By Contac t Referred To Contact Endocrinology Diagnoses Type 1 diabetes mellitus without complication (HCC) Shaan Olivares PA-C [address] [place] [address] Kenneth Sparrow MD [address] [place] [address] Referral ID Status Reason Start Date Expiration Date V isits Requested Visits Authorized [id number] Closed Specialty Services Required/Hanny ent's Best Interest 10/28/2021 10/28/2022 1 1 Reason Onset Date Comments Medication Refill 12/22/2021 Reason Onset Date Comments Medication Refill 12/23/2021 Reason Onset Date Comments Medication Refill 01/19/2022 Reason Comments 3 Month Follow-Up Reason Comments Diabetes Mellitus Gap Closure (Health Maintenance) Foot Ex am Never doneOphthalmology Exam Never done Reason Onset Date Comments Medication Refill 12/29/2022 Reason Comments Diabetes Mellitus Gap Closure (Health Maintenance) Foot Ex am Never done Reason Comments Diabetes Mellitus Gap Closure (Health Maintenance) Foot Ex am Never done Reason Comments Diabetes Mellitus Gap Closure (Health Maintenance) Diabeti c Foot Exam Never done Reason Comments Diabetes Mellitus Gap Closure (Health Maintenance) Diabeti c Foot Exam Never doneDiabetic Eye Exam due on 10/06/2023 Reason Onset Date Comments Medication Refill 11/12/2023 Reason Onset Date Comments Medication Refill 01/20/2024 Reason Comments Diabetes Mellitus Gap Closure (Health Maintenance) Diabeti c Foot Exam Never done Reason Onset Date Comments Medication Refill 02/09/2024 Reason Onset Date Comments Medication Refill 03/08/2024 Reason Comments Type 1 diabetes mellitus with hyperglyce ozzie (HCC) Gap Closure (Health Maintenance) Diabeti c Foot Exam Never done Reason Onset Date Comments Medication Refill 06/16/2024 Reason Onset Date Comments Medication Refill 06/20/2024 Reason Onset Date Comments Medication Refill 07/20/2024 Reason Onset Date Comments Medication Refill 07/25/2024 Reason Comments Diabetes Mellitus Gap Closure (Health Maintenance) There a re no preventive care reminders to display for this patient. Reason Comments Diabetes Mellitus Gap Closure (Health Maintenance) There a re no preventive care reminders to display for this patient. Reason Comments Type 1 diabetes mellitus wit h hyperglycemia (HCC) Gap Closure (Health Maintenance) There a re no preventive care reminders to display for this patient. Care Teams (unrecognized sec tion and content) Certified Breastfeeding Educator Relationship Specialty Start Date End Date Shaan Olivares PA [address] [place], [place] [phone] PCP - General Physician Traffic Supervisor 10/20/21 Certified Breastfeeding Educator Relationship Specialty Start Date End Date Shaan Olivares PA [address] [place] [address] PCP - General Physician Traffic Supervisor 10/20/21 Certified Breastfeeding Educator Relationship Specialty Start Date End Date Shaan Olivares PA-C [address] [place] [address] PCP - General Physician Traffic Supervisor 10/29/21 Certified Breastfeeding Educator Relationship Specialty Start Date End Date Shaan Olivares PA [address] [place] [address] PCP - General Physician Traffic Supervisor 10/20/21 Certified Breastfeeding Educator Relationship Specialty Start Date End Date Shaan Olivares PA-C [address] [place] [address] PCP - General Physician Traffic Supervisor 10/29/21 Certified Breastfeeding Educator Relationship Specialty Start Date End Date Shaan Olivares PA-C [address] [place] [address] PCP - General Physician Traffic Supervisor 10/29/21 Certified Breastfeeding Educator Relationship Specialty Start Date End Date Shaan Olivares PA-C [address] [place] [address] PCP - General Physician Traffic Supervisor 10/29/21 Certified Breastfeeding Educator Relationship Specialty Start Date End Date Shaan Olivares PA-C [address] [place] [address] PCP - General Physician Traffic Supervisor 10/29/21 Certified Breastfeeding Educator Relationship Specialty Start Date End Date Shaan Olivares PA-C [address] [place], [place] [phone] PCP - General Physician Traffic Supervisor 10/29/21 Certified Breastfeeding Educator Relationship Specialty Start Date End Date Shaan Olivares PA-C [address] [place], [place] [phone] PCP - General Physician Traffic Supervisor 10/29/21 Certified Breastfeeding Educator Relationship Specialty Start Date End Date Shaan Olivares PA-C [facility] [place], [place] [id number] PCP - General Physician Traffic Supervisor 10/29/21 Certified Breastfeeding Educator Relationship Specialty Start Date End Date Shaan Olivares PA-C [facility] [place] [address] PCP - General Physician Traffic Supervisor 10/29/21 Certified Breastfeeding Educator Relationship Specialty Start Date End Date Shaan Olivares PA-[place] [facility] [place] [address] PCP - General Physician Traffic Supervisor 10/29/21 Certified Breastfeeding Educator Relationship Specialty Start Date End Date Shaan Olivares PA-[place] [facility] [place] [address] PCP - General Physician Traffic Supervisor 10/29/21 Certified Breastfeeding Educator Relationship Specialty Start Date End Date Shaan Olivares PA-C [address] [place], [place] [phone] PCP - General Physician Traffic Supervisor 10/29/21 Certified Breastfeeding Educator Relationship Specialty Start Date End Date Shaan Olivares PA-C [facility] [place], [place] [phone] PCP - General Physician Traffic Supervisor 10/29/21 Certified Breastfeeding Educator Relationship Specialty Start Date End Date Shaan Olivares PA-C [address] [place] [address] PCP - General Physician Traffic Supervisor 10/29/21 Certified Breastfeeding Educator Relationship Specialty Start Date End Date Shaan Olivares PA-C [address] [place] [address] PCP - General Physician Traffic Supervisor 10/29/21 Certified Breastfeeding Educator Relationship Specialty Start Date End Date Shaan Olivares PA-C [address] [place] [address] PCP - General Physician Traffic Supervisor 10/29/21 Certified Breastfeeding Educator Relationship Specialty Start Date End Date Shaan Olivares PA-C [address] [place] [address] PCP - General Physician Traffic Supervisor 10/29/21 Certified Breastfeeding Educator Relationship Specialty Start Date End Date Shaan Olivares PA-C [address] [place] [address] PCP - General Physician Traffic Supervisor 10/29/21 Certified Breastfeeding Educator Relationship Specialty Start Date End Date Shaan Olivares PA-C [address] [place] [address] PCP - General Physician Traffic Supervisor 10/29/21 Certified Breastfeeding Educator Relationship Specialty Start Date End Date Floresita Bob CNP [address] [place] [address] PCP - General Endocrinology/Metabolism 06/21/24 Certified Breastfeeding Educator Relationship Specialty Start Date End Date Floresita Bob CNP [address] [place] [address] PCP - General Endocrinology/Metabolism 06/21/24 Certified Breastfeeding Educator Relationship Specialty Start Date End Date Floresita Bob CNP [address] [place] [address] PCP - General Endocrinology/Metabolism 06/21/24 Certified Breastfeeding Educator Relationship Specialty Start Date End Date Yoana Taylor CNP [address] [place] [phone] PCP - General Nurse Practitioner 08/09/24 Floresita Bob CNP [address] [place] [phone] Nurse Practitioner Endocrinology/Metabolism 08/09/24 Certified Breastfeeding Educator Relationship Specialty Start Date End Date Yoana Taylor CNP [address] [place], [place] [phone] PCP - General Nurse Practitioner 08/09/24 Floresita Bob CNP [address] [place] [address] Nurse Practitioner Endocrinology/Metabolism 08/09/24 Certified Breastfeeding Educator Relationship Specialty Start Date End Date Yoana Taylor CNP [address] [place], [place] [phone] PCP - General Nurse Practitioner 08/09/24 Floresita Bob CNP [address] [place] [address] Nurse Practitioner Endocrinology/Metabolism 08/09/24 Certified Breastfeeding Educator Relationship Specialty Start Date End Date Yoana Taylor CNP [address] [place] [phone] PCP - General Nurse Practitioner 08/09/24 Floresita Bob CNP [address] [facility] [place] [address] Nurse Practitioner Endocrinology/Metabolism 08/09/24 Certified Breastfeeding Educator Relationship Specialty Start Date End Date Yoana Taylor CNP [address] [place] [address] PCP - General Nurse Practitioner 08/09/24 Floresita Bob CNP [address] [place] [address] Nurse Practitioner Endocrinology/Metabolism 08/09/24 INFORMATION SOURCE (unrecogn ized section and content) DATE CREATED AUTHOR 02/05/2022 Janeth santa DATE CREATED AUTHOR AUTHOR'S ORGANIZ ATION 12/11/2022 [facility] DATE CREATED AUTHOR AUTHOR'S ORGANIZ ATION 01/11/2024 [facility] DATE CREATED AUTHOR AUTHOR'S ORGANIZ ATION 02/03/2024 [facility] DATE CREATED AUTHOR AUTHOR'S ORGANIZ ATION 04/24/2024 [facility] DATE CREATED AUTHOR AUTHOR'S ORGANIZ ATION 04/27/2024 [facility] DATE CREATED AUTHOR AUTHOR'S ORGANIZ ATION 07/25/2024 [facility] DATE CREATED AUTHOR AUTHOR'S ORGANIZ ATION 12/07/2024 [facility] DATE CREATED AUTHOR AUTHOR'S ORGANIZ ATION 12/30/2024 [facility] DATE CREATED AUTHOR AUTHOR'S ORGANIZ ATION 01/18/2025 [facility] FOR RECORDS PERTAINING TO PATIENTS WHO ARE OR HAVE BEEN ENROLLED IN A CHEMICAL DEPENDENCY/SUBSTANCEABUSE PROGRAM, SOME INFORMATION MAY BE OMITTED. This clinical summary was aggregated from multiple sources. Caution should be exercised in using it in the provision of clinical care. This summary normalizes information from multiple sources, and as a consequence, information in this document may materially change the coding, format and clinical context of patient data. In addition, data may be omitted in some cases. CLINICAL DECISIONS SHOULD BE BASED ON THE PRIMARY CLINICAL RECORDS. [facility]. provides no warranty or guarantee of the accuracy or completeness of information in this document.
== END 2025-02-21 09:27 | disposition home or self-care (01) ==
LOC: MAMMO 09:26
PROVIDERS: PCP Nurse Practitioner; Visit Provider Nurse Practitioner
DX: Z12.31 Encounter for screening mammogram for malignant neoplasm of breast (principal)
CPT/HCPCS: 77063; 77067